=== PATIENT | male | born 1965 | race Caucasian/White ===

== ENCOUNTER → 2020-04-12 09:17 | Outpatient (CLI) | payer BC, SELFPAY ==
--- NOTE | ~2020-04-12 | XR_ITS ---
EXAMINATION: XR chest 2V 04/12/2020 09:25 INDICATION: Wheezing and cough PROCEDURE: 2 view chest COMPARISON: 04/09/2012 FINDINGS: The lungs are clear. The cardiomediastinal silhouette is within normal limits. There are no pleural effusions. There is no pneumothorax suspected. IMPRESSION: 1: NO ACUTE CARDIOPULMONARY DISEASE. Reviewed, dictated and finalized at location A. GEMENT TRAINEE
== END ==
PROVIDERS: PCP Family Medicine; Visit Provider Nurse Practitioner
DX: R06.2 Wheezing (principal)
CPT/HCPCS: 71046

== ENCOUNTER 2021-02-05 09:36 | Outpatient (CLI) | payer BC, SELFPAY ==
--- NOTE | 2021-02-05 10:16 | ECG_ITS ---
Measurements Intervals [place] Rate: 99 P: 63 OK: 146 QRS: 37 QRSD: 90 T: 57 QT: 325 QTc: 419 Interpretive Statements SINUS RHYTHM NONSPECIFIC ST & T-WAVE ABNORMALITY- INFERIOR LEADS BASELINE ARTIFACT- I, II, AVR, AVL BORDERLINE ECG Electronically Signed On 02-05-2021 10:36:30 CDT by Dejuan Velasquez D.O.
== END 2021-02-05 09:37 | disposition home or self-care (01) ==
LOC: ANHCARD 09:37
PROVIDERS: PCP Family Medicine; Visit Provider Nurse Practitioner Family
DX: R55 Syncope and collapse (principal)
CPT/HCPCS: 93005

== ENCOUNTER 2021-05-03 08:05 | Outpatient (CLI) | payer BC, SELFPAY ==
--- NOTE | 2021-05-05 13:56 | P.PCNPFT_ITS ---
PFT Procedure Performed PFT Procedure Performed Spirometry with Pre/Post Bronchodilator Plethysmography (Lung Vol) Diffusing Cap (DLCO) Flow Vol Loop PFT Interpretation DOS: 05/03/2021 REQUESTING: Dr Hernandez REASON FOR TESTING: shortness of breath PULMONARY FUNCTION TESTS Results are reliable and reproducible. Spirometry: Pre-bronchodilator FEV1 is 66%, 2.46 L, mildly decreased. FVC is 82%. The FEV1/FVC ratio is 62% consistent with airflow obstruction. There is an 11% increase in the FVC after bronchodilator administration which is greater than 200 mL. Lung volumes: Total lung capacity 119% upper limit of normal. Residual volume severely increased to a 1% consistent with air trapping. RV/TLC greatly elevated. Airway resistance 227% increased. Diffusion: DLCO 70%, mildly decreased. Flow volume loop: This is not reliably reproduced 3 times. IMPRESSION: Mild obstructive ventilatory defect with severe air trapping and mild diffusion impairment. There was a response to bronchodilator that was 11%, less than the 12% required by ATS to qualify as a statistically significant resp onse. This study is consistent with emphysema. The lack of response to bronchodilators should not preclude use of clinically indicated. Judy Hernandez MD
--- NOTE | 2021-05-05 14:06 | WPDSIXMINUTE ---
Six Minute Walk Procedure Procedure Performed Pulmonary Stress Test (6 min walk) Six Minute Walk Six Minute Walk: DOS: 05/03/2021 REQUESTING: Dr Hernandez REASON FOR TESTING: shortness of breath SIX MINUTE WALK This study was conducted per ATS guidelines. The initial saturation was 97% and the pulse was 74. The patient walked for 6 minutes without stopping, completing 1400 ft/473.7 m which is a normal distance for his age. He did not drop his saturation below 95%. The highest pulse was 100. At the end of recovery, his pulse decreased to 82 which is a normal response to exercise. IMPRESSION: This is a normal walk study. The patient does not require supplemental oxygen with exertion.
== END 2021-05-03 08:06 | disposition home or self-care (01) ==
PROVIDERS: PCP Family Medicine; Visit Provider Internal Medicine Critical Care Medicine
DX: J44.9 Chronic obstructive pulmonary disease, unspecified (principal); R94.2 Abnormal results of pulmonary function studies
CPT/HCPCS: 94060; 94618; 94726; 94729

== ENCOUNTER → 2021-06-10 12:42 | Outpatient (CLI) | payer BC, SELFPAY ==
--- NOTE | ~2021-06-10 | CT_ITS ---
EXAMINATION:CT lung screening DATE: 06/10/2021 12:58 INDICATION: Personal history of nicotine dependence. Current smoker with 40 pack year history. TECHNIQUE: Computed tomography (CT) of the chest was performed without intravenous contrast. Automate d exposure control and iterative reconstruction technique were employed. The dose-length product (DLP ) was 327.71 mGy-cm. COMPARISON: None. FINDINGS: There is mild emphysema. There is a 5 mm nodule at minor fissure. There is a 3 mm nodule in right middle lobe. No pleural effusion. The heart size is normal. No pericardial effusion. There is mild thoracic spondylosis. IMPRESSION: 1. Lung-RADS category 2: Benign appearance or behavior. Continue annual screening with noncontrast lo w-dose chest CT in 12 months. Reviewed, dictated and finalized at location A. [employer] AMP[employer] OFFICER IMPRESSION: 1. Lung-RADS category 2: Benign appearance or behavior. Continue annual screeni ng with noncontrast low-dose chest CT in 12 months.
== END ==
PROVIDERS: PCP Family Medicine; Visit Provider Internal Medicine Critical Care Medicine
DX: Z87.891 Personal history of nicotine dependence (principal)
CPT/HCPCS: 71271

== ENCOUNTER 2022-06-12 12:55 | Outpatient (CLI) | payer OTHER, SELFPAY ==
--- NOTE | ~2022-06-12 | CT_ITS ---
EXAMINATION:CT lung screening DATE: 06/12/2022 13:07 INDICATION: Tobacco use. Current smoker with 40 pack year history. TECHNIQUE: Computed tomography (CT) of the chest was performed without intravenous contrast. Automate d exposure control and iterative reconstruction technique were employed. The dose-length product (DLP ) was 427.98 mGy-cm. COMPARISON: Chest CT 06/10/2021 FINDINGS: There is mild emphysema. There is a stable 5 mm nodule at minor fissure. There is a 3 mm no dule in right middle lobe. There is a 2 mm nodule in left upper lobe. No pleural effusion. The heart size is normal. No pericardial effusion. There is mild bilateral gynecomastia. There is mild thoracic spondylosis. IMPRESSION: 1. Lung-RADS category 2: Benign appearance or behavior. Continue annual screening with noncontrast lo w-dose chest CT in 12 months. Reviewed, dictated and finalized at location A. RATION MANAGER IMPRESSION: 1. Lung-RADS category 2: Benign appearance or behavior. Continue annual screeni ng with noncontrast low-dose chest CT in 12 months.
== END 2022-06-12 12:56 | disposition home or self-care (01) ==
LOC: ANHIMG 12:55
PROVIDERS: PCP Family Medicine; Visit Provider Nurse Practitioner Family
DX: Z12.2 Encounter for screening for malignant neoplasm of respiratory organs (principal); F17.210 Nicotine dependence, cigarettes, uncomplicated
CPT/HCPCS: 71271

== ENCOUNTER 2022-08-09 12:57 | Emergency (ER) | payer OTHER, SELFPAY ==
[2022-08-09 13:04] VITALS: BP 143/94; PULSE 77; RESP 20; TEMP 36.4; O2SAT 98
--- NOTE | 2022-08-09 13:05 | ED.DENTAL ---
HPI - Dental/Oral General Chief complaint: Dental/Oral Stated complaint: TOOTHACHE/FACIAL SWELLING Source: patient and RN notes reviewed History of Present Illness HPI Narrative: 56-year-old male presents urgent care with complaints of right lower dental pain since . Patient reports he began having facial swelling within the last 24 hours. Denies any fevers, chills chest pain shortness of breath, or vomiting. Denies any trouble swallowing. Patient states he has been taking aspirin with minimal relief. Some parts of this dictation were generated by voice recognition software and may contain typographical and/or grammatical inaccuracies. Related Data Allergies Allergy/AdvReac Type Severity Reaction Status Date / Time No Known Allergies Allergy Verified 08/09/22 13:03 Review of Systems Review of Systems: Pertinent positives and pertinent negatives per HPI. [facility] Past Medical History Medical History Chronic obstructive pulmonary disease Chronic shortness of breath Essential (primary) hypertension Hypothyroid Vitamin D deficiency Surgical History Surgical History No history of previous surgery Family History Family History Father Heart disease Mother Thyroid disease Mother Family history of thyroid disease Father Family history of coronary artery disease Hypertension Social History Social History Social History: Patient is . Lives with his in [place]. Patient works for [employer]. Smoking packs per day: 1 Smoking cigarettes per day: 20.0 Years smoked: 40 Smoking pack-years: 40.00 Smoking status: Current every day smoker Tobacco type: cigarettes Second hand tobacco smoke exposure: No Alcohol intake: current Alcohol use details: social drinker Substance use: never Substance use type: does not use Lack of Transportation: No Lack of Food: Never True Current Housing: I Have Housing Concerned About Future Housing: No Difficulty Paying Gas/Electric Bills: No Difficulty Paying for Meds: No Currently Unemployed: No Education: High School Diploma/GED Living arrangements: with family Occupation/Education: occupation Gender identity (if verbalized by the patient): Male Sexual Orientation (if Verbalized by the Patient): Straight or Heterosexual Agree to blood products: Yes Comments At the time of my signature, I reviewed and agree with the nursing past medical, surgical, social, and family history. There is no relevant family history pertinent to the patient complaint. Exam Narrative: GENERAL: This is a well-nourished, well-developed patient, in no apparent distress. HEAD: normocephalic, atraumatic. EYES: Sclera clear/white. Vision is grossly intact. EARS: External ears normal, auditory canals clear and without drainage. Hearing grossly intact. NOSE: External nose normal with no obvious nasal discharge, nares without redness, no rhinorrhea. THROAT: Mucous membranes moist, posterior pharynx clear. MOUTH: tooth number 30 noted to have partial decay With adjacent gum swelling. NECK: Neck supple, non-tender without lymphadenopathy, masses or thyromegaly. CARDIOVASCULAR: Regular rate RESPIRATORY: no respiratory distress SKIN: warm, intact with no suspicious lesions or rash, good texture and turgor. NEURO: awake, alert, and oriented to person, place and time. There were no obvious focal neurologic abnormalities. Course Course Level of Care: Express Care Visit Vital Signs Vital signs: Vital Signs Temperature 97.6 F 08/09/22 13:04 Pulse Rate 77 08/09/22 13:04 Respiratory Rate 20 08/09/22 13:04 Blood Pressure 143/94 H 08/09/22 13:04 Pulse Oximetry 98 08/09/22 13:04 Oxygen Sorinive
== END 2022-08-09 13:23 | disposition home or self-care (01) ==
PROVIDERS: Emergency Provider Nurse Practitioner Family; PCP Family Medicine
DX: K04.7 Periapical abscess without sinus (principal); I10 Essential (primary) hypertension; J44.9 Chronic obstructive pulmonary disease, unspecified; E03.9 Hypothyroidism, unspecified; F17.210 Nicotine dependence, cigarettes, uncomplicated
CPT/HCPCS: 99213; G0463

== ENCOUNTER 2023-04-07 09:13 | Emergency (ER) | payer OTHER, SELFPAY ==
[2023-04-07 09:26] VITALS: BP 148/82; PULSE 65; RESP 14; TEMP 36; O2SAT 98
--- NOTE | 2023-04-07 09:30 | ED.SKABFB ---
HPI - Skin/Abscess/Foreign Bdy General Chief complaint: Skin/Abscess/Foreign Body Stated complaint: Rash on hand;Open wounds on feet Time Seen by Provider: 04/07/23 10:03 Source: patient and RN notes reviewed Mode of arrival: ambulatory Limitations: no limitations History of Present Illness HPI narrative: 57-year-old male presents with concern for rash on his left hand and open skin on his feet bilaterally. 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 He reports that he has been using Neosporin on them but they are worsened when he wears his shoes all day long. He reports he was unable to work today because of the pain of wearing the shoes with the open skin. He reports the area is itchy. He also reports he has got a right itchy rash on his left hand that he has been using calamine lotion on. MD complaint: rash Related Data Allergies Allergy/AdvReac Type Severity Reaction Status Date / Time No Known Allergies Allergy Verified 04/07/23 09:42 Review of Systems Review of Systems: CONSTITUTIONAL: Denies malaise, chills, sweats, or fever. EYES: Denies redness, or discharge. ENT: Denies rhinorrhea, congestion, swollen lips, swollen tongue CARDIOVASCULAR: Denies chest pain, palpitations, or edema. RESPIRATORY: Denies cough or dyspnea. GASTROINTESTINAL: Denies abdominal pain, nausea, vomiting SKIN: Reports rash on left hand and open skin on bilateral feet MUSCULOSKELETAL: Denies joint pain or myalgia. NEUROLOGIC: Denies headache. All systems reviewed & are unremarkable except as noted in HPI and below PMFSH Past Medical History Medical History Chronic obstructive pulmonary disease Chronic shortness of breath Essential (primary) hypertension Hypothyroid Vitamin D deficiency Surgical History Surgical History No history of previous surgery Family History Family History Father Heart disease Mother Thyroid disease Mother Family history of thyroid disease Father Family history of coronary artery disease Hypertension Social History Social History Social History: Patient is . Lives with his in [place]. Patient works for [employer]. Smoking packs per day: 1 Smoking cigarettes per day: 20.0 Years smoked: 40 Smoking pack-years: 40.00 Smoking status: Current every day smoker Tobacco type: cigarettes Second hand tobacco smoke exposure: No Alcohol intake: current Alcohol use details: social drinker Substance use: never Substance use type: does not use Lack of Transportation: No Lack of Food: Never True Current Housing: I Have Housing Concerned About Future Housing: No Difficulty Paying Gas/Electric Bills: No Difficulty Paying for Meds: No Currently Unemployed: No Education: High School Diploma/GED Living arrangements: with family Occupation/Education: occupation Gender identity (if verbalized by the patient): Male Sexual Orientation (if Verbalized by the Patient): Straight or Heterosexual Agree to blood products: Yes Comments At time of signature, agree with nursing past medical, surgical, social and family history. There is no relevant family history pertinent to the presenting complaint Exam Narrative: GENERAL: Well-appearing, well-nourished, and in no acute distress. HEAD: Normocephalic, atraumatic. EYES: PERRLA, conjunctivae clear, and EOMI. ENT: Mucous membranes moist. Oropharynx without edema, erythema or lesions. NECK: Supple. No lymphadenopathy CHEST: Clear to auscultation. No respiratory distress. HEART: Regular rate and rhythm. SKIN: Warm, dry. Excoriated skin on bilateral in her feet, beefy red tissue bed with scattered r
== END 2023-04-07 10:14 | disposition home or self-care (01) ==
PROVIDERS: Emergency Provider Nurse Practitioner; PCP Family Medicine
DX: B35.4 Tinea corporis (principal); J44.9 Chronic obstructive pulmonary disease, unspecified; I10 Essential (primary) hypertension; E03.9 Hypothyroidism, unspecified; F17.210 Nicotine dependence, cigarettes, uncomplicated
CPT/HCPCS: 99213; G0463

== ENCOUNTER 2023-04-13 12:34 | Outpatient (CLI) | payer OTHER, SELFPAY ==
[2023-04-13 20:23] LABS: Alanine Aminotransferase 36 U/L (6-50); Alkaline Phosphatase 129 U/L (38-126); Anion Gap 10 mmol/L (8-16); Aspartate Amino Transferase 41 U/L (17-59); Bilirubin,Total 0.5 mg/dL (0.2-1.3); Blood Urea Nitrogen 23 mg/dL (9-20); Calcium 9.1 mg/dL (8.4-10.2); Carbon Dioxide 25 mmol/L (22-30); Chloride 98 mmol/L (98-107); Estimated Glomerular Filt Rate > 60; Glucose 89 mg/dL (65-110); Potassium 4.3 mmol/L (3.4-5.0); Sodium 133 mmol/L (137-145)
== END 2023-04-13 12:35 | disposition home or self-care (01) ==
LOC: ANHGOSHLAB 12:35
PROVIDERS: PCP Family Medicine; Visit Provider Nurse Practitioner Family
DX: E78.5 Hyperlipidemia, unspecified (principal); B49 Unspecified mycosis; I10 Essential (primary) hypertension
CPT/HCPCS: 36415; 80053

== ENCOUNTER 2023-06-18 10:08 | Outpatient (CLI) | payer OTHER, SELFPAY ==
--- NOTE | ~2023-06-18 | CT_ITS ---
CT Scan of the Chest without Contrast: Clinical Indication: Lung cancer screening, personal history of nicotine dependence Technique: Contiguous sections were acquired throughout the chest without intravenous contrast. Dose reduction technique was used on this scan by utilizing automated exposure control and iterative recon struction technique. The dose-length product (DLP) was 443.92 mGy-cm. COMPARISON: 06/12/2022 Findings: There is no evidence of any significant mediastinal, hilar or axillary lymphadenopathy. The mediastin al soft tissues appear normal. There is no evidence of pleural or pericardial effusion. The lungs are clear. No pulmonary nodules or infiltrates are noted. Minimal paraseptal emphysema note d in the upper lobes. Images through the upper abdomen reveal no abnormalities. Impression: Lung RADS 1: Negative. 12 month follow-up screening CT advised. Reviewed, dictated and finalized at [facility]. Impression: Lung RADS 1: Negative. 12 month follow-up screening CT advised.
== END 2023-06-18 10:09 | disposition home or self-care (01) ==
PROVIDERS: PCP Family Medicine; Visit Provider Nurse Practitioner Family
DX: Z12.2 Encounter for screening for malignant neoplasm of respiratory organs (principal); Z87.891 Personal history of nicotine dependence
CPT/HCPCS: 71271

== ENCOUNTER 2023-10-28 16:11 | Inpatient (IN) | payer OTHER, SELFPAY ==
[2023-10-28] VITALS (16 sets, daily range): BP systolic 140–182; BP diastolic 82–106; PULSE 70–92; RESP 16–27; TEMP 36.1–36.8; O2SAT 94–100
--- NOTE | ~2023-10-28 | US_ITS ---
US renal BI 10/30/2023 10:51 Procedure: Realtime transabdominal ultrasound of the kidneys and bladder. Indication: Elevated creatinine Comparison: No prior studies for comparison. Findings: Renal echotexture is normal bilaterally without hydronephrosis, contour deforming mass or r enal calculus. The right kidney measures 11 cm and left kidney measures 11.8 cm. Bladder within norm al limits. Impression: 1: Unremarkable renal ultrasound. No stones, masses or hydronephrosis. Reviewed, dictated and finalized at location B. Impression: 1: Unremarkable renal ultrasound. No stones, masses or hydronephrosis.
--- NOTE | ~2023-10-28 | XR_ITS ---
EXAMINATION: XR abdomen/kub 1V DATE: 11/03/2023 08:38 INDICATION: Adynamic ileus. TECHNIQUE: A supine view of the abdomen on 2 radiographs was obtained. COMPARISON: CT abdomen and pelvis 10/29/2023 FINDINGS: There is dilated small bowel in the abdomen. The colon is decompressed. Skin jim are no junior. A surgical drain overlies the abdomen. The nasogastric tube tip is in the stomach. IMPRESSION: 1. Dilated small bowel, consistent with adynamic ileus. Reviewed, dictated and finalized at location A.
--- NOTE | ~2023-10-28 | XR_ITS ---
EXAM: XR abdomen gastric tube insert DATE: 10/28/2023 23:30 HISTORY: NGT placement . COMPARISON: CT abdomen pelvis, same date. FINDINGS: Clear lung bases. NG tube, tip and side port project over the stomach. Midline surgical st aples. Surgical drain over the lower abdomen. Normal bowel gas pattern. No organomegaly. No abnormal abdominal calcification. Regional bones and soft tissues normal for age. IMPRESSION: NG tube, in good position. Reviewed, dictated and finalized at location K. IMPRESSION: NG tube, in good position.
--- NOTE | ~2023-10-28 | XR_ITS ---
XR abdomen gastric tube rechec INDICATION: Evaluate NG tube position. TECHNIQUE: Limited KUB perform for evaluating NG tube . COMPARISON: FINDINGS: NG tube tip in the stomach. Visualized bowel gas pattern is nonspecific.Mildly dilated sma ll bowel loops are present left upper abdomen which may represent ileus or small bowel obstruction. IMPRESSION: 1: NG tube tip in the stomach. Reviewed, dictated and finalized at location B.
--- NOTE | ~2023-10-28 | XR_ITS ---
XR chest 1V portable Ordering provider: Janna Samano APRN History: 58 years Male with . SOB . Comparison: April 12, 2020 FINDINGS: MEDIASTINUM: The cardiac silhouette is not enlarged. Is projected over the trachea may be endotracheal tube clinical correlation advised. LUNGS: No infiltrates, effusions or pneumothorax. Slightly prominent markings more on the right side with interstitial thickening. OTHER: No free air under the diaphragm. IMPRESSION: Prominent markings more on the right side with interstitial thickening. Early pneumonia is not exclud ed. Follow-up advised. Reviewed, dictated and finalized at location A. IMPRESSION: Prominent markings more on the right side with interstitial thickening. Early p neumonia is not excluded. Follow-up advised.
--- NOTE | ~2023-10-28 | CT_ITS ---
EXAMINATION: CT abdomen pelvis w con DATE: 10/29/2023 15:55 INDICATION: Status post hernia repair. Lactic acidosis. TECHNIQUE: Computed tomography (CT) of the abdomen and pelvis was performed with 100 cc Omnipaque 350 intravenous contrast. The dose-length product was 1469.70 mGy-cm. Automated exposure control and ite rative reconstruction technique were employed. COMPARISON: CT dated 10/28/2023. FINDINGS: Status post hernia repair. There is a drainage catheter in the subcutaneous tissues anterio r to the abdomen. There is soft tissue gas and fluid in the anterior abdominal wall, consistent with recent surgery. There is no free fluid in the mesentery and peritoneal space extending into the pelvi s, consistent with recent surgery. There is fatty infiltration of the liver. The spleen, pancreas, ad renal glands and kidneys are unremarkable. There is vicarious excretion of contrast. There is distend ed fluid-filled small bowel throughout the abdomen with air-fluid levels, likely ileus. No acute osse ous abnormality. Bladder wall is thickened, although the bladder is not well distended.. IMPRESSION: 1. Postoperative changes consistent with recent hernia repair. There is a dynamic ileus involving the small bowel with moderate free fluid in the abdomen and pelvis, likely postoperative. 2: Bladder wall thickening which may be due to cystitis. Recommend clinical correlation. Reviewed, dictated and finalized at location B. IMPRESSION: 1. Postoperative changes consistent with recent hernia repair. There is a dynam ic ileus involving the small bowel with moderate free fluid in the abdomen and pelvis, likely postoperative. 2: Bladder wall thickening which may be due to cystitis. Recommend clinical cor relation.
--- NOTE | ~2023-10-28 | CT_ITS ---
EXAMINATION: CT abdomen pelvis w con DATE: 10/28/2023 17:03 INDICATION: hernia TECHNIQUE: Computed tomography (CT) of the abdomen and pelvis was performed with 100 mL Omnipaque-350 intravenous contrast. Automated exposure control and iterative reconstruction technique were employe d. The dose-length product was 1478.09 mGy-cm. COMPARISON: None. FINDINGS: Lower thorax: Unremarkable Liver: Normal. Biliary/Gallbladder: Gallbladder is normal. No bile duct dilation. Pancreas: No mass or duct dilation. Spleen: Normal. Adrenals:No mass. Kidneys: No suspicious mass, obstructing stone, or hydronephrosis simple left midpole cyst. GI tract: No small or large bowel dilation. Normal appendix. Diverticulosis without diverticulitis. Mesentery/Peritoneum: No ascites, mass, or free air. Retroperitoneum: No mass. Atherosclerotic abdominal aortic and/or arterial calcifications. Pelvis: Partially distended urinary bladder with wall thickening. Prostatic calcifications.. Soft Tissues: Large supraumbilical ventral hernia, 5.7 cm neck, multiple loops of nondilated small nayely wel, with mesenteric stranding. Bones: No acute osseous finding. IMPRESSION: Large wide necked supraumbilical ventral hernia containing multiple loops of nonobstructed small zeus l. Mesenteric stranding within the hernia sac likely indicates some component of inflammation or veno us congestion. Cystitis versus urinary bladder wall thickening from outlet compromise. Correlate with urinalysis. Reviewed, dictated and finalized at location K. IMPRESSION: Large wide necked supraumbilical ventral hernia containing multiple loops of no nobstructed small bowel. Mesenteric stranding within the hernia sac likely stanley cates some component of inflammation or venous congestion. Cystitis versus urinary bladder wall thickening from outlet compromise. Correla te with urinalysis.
--- NOTE | 2023-10-28 16:29 | PC.NURSE ---
patient is very restless and continuously stating, please, it hurts, give me something for pain . patient is stating this continuously even after 4mg morphine and 200mcg of fentanyl prior to arrival. last meal at 1200 today and has been drinking water all day .
[2023-10-28 16:31] LABS: Basophils Absolute Auto 0.1 K/mm3 (0.0-0.1); Basophils Percent Auto 0.6 % (0.2-1.2); Eosinophils Absolute Auto 0.3 K/mm3 (0-0.3); Eosinophils Percent Auto 2.5 % (0-4.4); Hematocrit 45.6 % (42.0-52.0); Immature Granulocyte Absolute 0.13 K/mm3 (0.00-0.031); Immature Granulocyte Percent A 1.2 % (0-0.5); Lymphocytes Absolute Auto 2.11 K/mm3 (0.9-3.2); Lymphocytes Percent Auto 19.2 % (18.3-44.2); Mean Corpuscular HGB Conc 35.1 g/dl (32-36); Mean Corpuscular Volume 96.8 fl (80-100); Mean Platelet Volume 8.7 fl (7.4-10.4); Monocytes Absolute Auto 1.1 K/mm3 (0.1-0.6); Neutrophils Absolute Auto 7.3 K/mm3 (1.3-6.7); Neutrophils Percent Auto 66.5 % (45.5-73.1); Platelet Count Result 235 k/mm3 (150-375); Red Blood Count 4.71 M/mm3 (4.6-6.20); Red Cell Distribution Width 13.1 % (11.5-14.5)
[2023-10-28] MEDS: fentaNYL CITRATE INJ (*CRX) 100 MCG/2 ML VIAL 150 MCG IV PUSH (16:34)
[2023-10-28] MEDS: HALOPERIDOL LACTATE 5 MG/ML VIAL 2.5 MG IV PUSH (16:37)
[2023-10-28 16:42] LABS: Alanine Aminotransferase 82 U/L (6-50); Albumin Level 4.7 g/dL (3.5-5.1); Alkaline Phosphatase 109 U/L (38-126); Anion Gap 16 mmol/L (4-12); Aspartate Amino Transferase 82 U/L (17-59); Bilirubin,Total 0.4 mg/dL (0.2-1.3); Blood Urea Nitrogen 16 mg/dL (9-20); Calcium 9.7 mg/dL (8.4-10.2); Carbon Dioxide 23 mmol/L (22-30); Chloride 96 mmol/L (98-107); Estimated CRCL calculation 83 ml/min; Estimated Glomerular Filt Rate > 60; Glucose 128 mg/dL (65-110); Lipase 110 U/L (23-300); Potassium 3.6 mmol/L (3.4-5.0); Sodium 135 mmol/L (137-145)
--- NOTE | 2023-10-28 16:47 | PC.NURSE ---
provider states the haldol order is to ease patients anxiety and not for chemical restraint. after fentanyl administration patients pain is still 10/10 and is continuously moaning in pain
[2023-10-28] MEDS: fentaNYL CITRATE INJ (*CRX) 100 MCG/2 ML VIAL IV PUSH (17:14)
--- NOTE | 2023-10-28 18:00 | ED.ABDPAIN ---
HPI - Abdominal Pain General Chief Complaint: Abdominal Pain Stated Complaint: severe abd pain Time Seen by Provider: 10/28/23 16:22 History of Present Illness HPI narrative: This is a 58-year-old male gentleman who presents to the emergency department with chief complaint of sudden onset abdominal pain. He has a known history of a large ventral hernia that he has had previously able to be successfully reduced. He states approximately 2:00 p.m. this afternoon he was sitting in his couch when he had the sudden onset of significant abdominal discomfort. He is developing some nausea without vomiting and his pain has been getting worse since the onset. He called EMS for assistance. EMS was providing him analgesia with 150 of fentanyl, 4 mg of IV morphine. Patient had significant pain without any improvement after these interventions. On my initial assessment the patient patient is writhing around screaming, complaining of abdominal pain and nausea. He states that this has never happened in the past he has never had any abdominal surgeries. Denies any chest pain, shortness a brother, headache, vision changes, diarrhea, constipation, urinary complaints, no fever, chills. Was otherwise in his normal state of health until the segment. No trauma. Related Data Allergies Allergy/AdvReac Type Severity Reaction Status Date / Time terbinafine Allergy Mild Hives Verified 10/28/23 16:17 Review of Systems Review of Systems: As reviewed above in the HPI [facility] Past Medical History Medical History Abnormal EKG Chronic obstructive pulmonary disease Chronic shortness of breath Essential (primary) hypertension Hypothyroid Milia of eyelid Syncopal episodes Tinea pedis Vitamin D deficiency Surgical History Surgical History No history of previous surgery Family History Family History Father Heart disease Mother Thyroid disease Mother Family history of thyroid disease Father Family history of coronary artery disease Hypertension Social History Social History Social History: Patient is . Lives with his in [place]. Patient works for [employer]. Smoking packs per day: 1 Smoking cigarettes per day: 20.0 Years smoked: 40 Smoking pack-years: 40.00 Smoking status: Current every day smoker Tobacco type: cigarettes Second hand tobacco smoke exposure: No Alcohol intake: current Alcohol use details: social drinker Substance use: never Substance use type: does not use Lack of Transportation: No Lack of Food: Never True Current Housing: I Have Housing Concerned About Future Housing: No Difficulty Paying Gas/Electric Bills: No Difficulty Paying for Meds: No Currently Unemployed: No Education: High School Diploma/GED Living arrangements: with family Occupation/Education: occupation Gender identity (if verbalized by the patient): Male Sexual Orientation (if Verbalized by the Patient): Straight or Heterosexual Agree to blood products: Yes Exam Narrative: GENERAL: Patient appears in acute distress with mild diaphoresis. He is awake alert and oriented but complaining of significant abdominal discomfort. HEAD: [Normocephalic, atraumatic.] EYES: [PERRLA and EOMI.] ENT: Nares clear, no rhinorrhea or epistaxis. Mucous membranes moist. NECK: Supple. CHEST: [Clear to auscultation. No respiratory distress.] HEART: [Regular rate and rhythm]. No murmur heard. [Normal peripheral pulses.] ABDOMEN: Hard, distended, significant tender to palpation. Ventral hernia noted that is irreducible. Overlying skin changes consistent with potential strangulation noted, no inguinal pathology or inguinal tenderness, scrotal tenderness., rigidity noted. EXTREMITI
[2023-10-28 18:21] LABS: Appearance Urine Clear (Clear); Bacteria Urine None Seen /hpf; Bilirubin Urine Negative (Negative); Blood Urine Negative (Negative); Color Urine Dark Yellow (Yellow); Glucose Urine UA Negative (Negative); Hyaline Casts Urine Present /lpf; Ketones Urine Trace mg/dL (Negative); Leukocyte Esterase Ur Negative LEU/UL (Negative); Nitrate Urine Negative (Negative); Non Pathogenic Casts >20; Protein Urine Trace mg/dL (Negative); RBC Urine 0-2 /hpf (0-2); Specific Grav Ur > 1.045 (1.001-1.035); Squamous Epithelial Cell Urine None Seen /hpf (Few); WBC Urine 0-5 /hpf (0-3); pH Urine 5.5 (5.0-9.0)
[2023-10-28 18:22] LABS: Add Urine Microscopic? YES
[2023-10-28] MEDS: LACTATED RINGERS 1,000 ML 125 ML IV CONT (18:38)
[2023-10-28] MEDS: HYDROmorphone HCL INJ (*CRX) 1 MG/ML SYR IM (19:06)
[2023-10-28] MEDS: LACTATED RINGERS 1,000 ML 999 ML IV CONT (19:15)
[2023-10-28] MEDS: PIPERACILLIN/TAZ 4.5G/NS 100ML 4.5 GM/100 ML BAG IVPB (19:27)
[2023-10-28 19:36] LABS: Lactic Acid Reflex 2.7 mmol/L (0.7-2.0)
[2023-10-28] MEDS: KETOROLAC 30 MG/ML VIAL (*BKC) IV PUSH (20:04)
[2023-10-28] MEDS: methocarbamoL 500 MG TABLET 1500 MG PO (20:05)
[2023-10-28 20:33] LABS: Reflex Lactic Acid Yes or No Add Lactic
--- NOTE | 2023-10-28 20:38 | WPDCN ---
Assessment and Plan Assessment and plan (1) Incarcerated ventral hernia: Code(s): K43.6 - Other and unspecified ventral hernia with obstruction, without gangrene Status: Acute Assessment and Plan: Patient has a incarcerated ventral hernia containing multiple loops of small bowel. Does not appear to have a bowel obstruction on CT scan however. White blood count 11708. Will proceed with emergent reduction of the incarcerated small bowel and primary repair of the ventral hernia without mesh, and possible bowel resection this evening. Risks, benefits, indications,and expected outcomes were discussed in detail with the patient and his family at the bedside. Risks such as need for bowel resection of any nonviable small bowel as well as possible admission to the intensive care unit overnight on the ventilator due to his COPD was specifically discussed. They understand then wish to proceed with surgery emergently this evening. We will start the patient on IV antibiotics to include some Zosyn. HPI Data of Consult Date/Time: 10/28/23 20:38 Requesting Physician: Harsh Flores MD Primary Care Provider: Juana Kurtz MD Consult Narrative Reason for consult: Incarcerated primary ventral hernia, abdominal pain. Narrative: Patrick House is a 58 year old obese male who has had a long multiple year history of having a reducible primary lower epigastric ventral hernia. He had always been able to reduce this hernia until earlier this afternoon. At that time he said sudden onset of pretty severe abdominal pain and had a hard knot is mid abdomen which she could not reduce. He has some mild nausea but no emesis. He presented to the emergency room and he had a known white blood count 33857. He had no emesis. He had a CT scan abdomen pelvis performed showing multiple loops of small bowel incarcerated within a primary ventral hernia defect measuring approximately 6cm in diameter. None of the bowel appeared to be obstructed or ischemic on CT scan. Patient is having severe pain on the minimal nausea. He does have COPD and uses a daily inhaler. He has never had abdominal surgery in the past. Other medical conditions include hypertension and hypothyroidism. Review of Systems Review of Systems: The remainder of the review of systems to include constitutional, HEENT, cardiovascular, respiratory, GI, , integumentary, musculoskeletal, endocrine, immunologic, hematologic, psychiatric, and neurologic are all negative except for which is mentioned above in the HPI. [facility] Past Medical History Medical History Abnormal EKG Chronic obstructive pulmonary disease Chronic shortness of breath Essential (primary) hypertension Hypothyroid Milia of eyelid Syncopal episodes Tinea pedis Vitamin D deficiency Surgical History Surgical History No history of previous surgery Family History Family History Father Heart disease Mother Thyroid disease Mother Family history of thyroid disease Father Family history of coronary artery disease Hypertension Social History Social History Social History: Patient is . Lives with his in [place]. Patient works for [employer]. Smoking packs per day: 1 Smoking cigarettes per day: 20.0 Years smoked: 40 Smoking pack-years: 40.00 Smoking status: Current every day smoker Tobacco type: cigarettes Second hand tobacco smoke exposure: No Alcohol intake: current Alcohol use details: social drinker Substance use: never Substance use type: does not use Lack of Transportation: No Lack of Food: Never True Current Housing: I Have Housing Concerned About Future Housing: No Difficulty Paying Gas/Electric Bills: No Difficulty Payi
--- NOTE | 2023-10-28 20:58 | WPDANESEPP ---
Anes - Eval Pre Procedure Procedure: Operation Date: 10/28/23 21:00 Proposed Procedures p Ventral Incisional Hernia Repair - Harsh Flores MD Date/Time: 10/28/23 20:58 Pre Op Diagnosis: severe abd pain Patient Data Age: 58 Gender: M Height: 1.78 m Weight: 118.18 kg Last Vital Signs Temp 36.8 C 10/28/23 19:06 Pulse 82 10/28/23 20:16 Resp 25 H 10/28/23 20:16 BP 171/102 H 10/28/23 20:16 Pulse Ox 98 10/28/23 20:16 O2 Del Method Room Air 10/28/23 16:12 Allergies Allergy/AdvReac Type Severity Reaction Status Date / Time terbinafine Allergy Mild Hives Verified 10/28/23 16:17 Home Medications Medication Instructions Recorded Confirmed Type cholecalciferol (vitamin D3) 50 50 mcg PO DAILY #1 cap 07/22/21 09/24/23 Rx mcg (2,000 unit) capsule triamcinolone acetonide 0.1 % 1 applic topical BID #15 grams 08/12/22 09/24/23 Rx topical cream pravastatin 10 mg tablet 10 mg PO QHS #90 tabs 05/22/23 09/24/23 Rx fluticasone fur. 100 mcg-umeclid See Rx Instructions .Route 07/15/23 09/24/23 Rx 62.5 mcg-vilant 25 mcg .COMPLEX #180 ea inhalat.powder (Trelegy Ellipta) clotrimazole-betamethasone 1 1 applic topical BID 4 weeks #45 09/21/23 09/24/23 Rx %-0.05 % topical cream grams lisinopril 20 2 tablet PO DAILY #180 tabs 10/06/23 Rx mg-hydrochlorothiazide 12.5 mg tablet albuterol sulfate 90 mcg/actuation 2 inh inhalation Q4H PRN shortness 10/07/23 Rx aerosol inhaler (Ventolin HFA) of breath or wheezing #8.5 grams levothyroxine 100 mcg tablet 100 mcg PO DAILY #90 tabs 10/12/23 Rx Laboratory Tests 10/28/23 10/28/23 10/28/23 16:23 17:27 19:17 WBC 11.0 H K/mm3 (4.5-10.0) RBC 4.71 M/mm3 (4.6-6.20) Hgb 16.0 g/dL (14.0-18.0) Hct 45.6 % (42.0-52.0) MCV 96.8 fl (80-100) MCH 34.0 pg (26-34) MCHC 35.1 g/dl (32-36) RDW 13.1 % (11.5-14.5) Plt Count 235 k/mm3 (150-375) MPV 8.7 fl (7.4-10.4) Immature Gran % (Auto) 1.2 H % (0-0.5) Neut % (Auto) 66.5 % (45.5-73.1) Lymph % (Auto) 19.2 % (18.3-44.2) [place] % (Auto) 10.0 H % (2.6-8.5) Eos % (Auto) 2.5 % (0-4.4) Baso % (Auto) 0.6 % (0.2-1.2) Lymph # (Auto) 2.11 K/mm3 (0.9-3.2) [place] # (Auto) 1.1 H K/mm3 (0.1-0.6) Eos # (Auto) 0.3 K/mm3 (0-0.3) Baso # (Auto) 0.1 K/mm3 (0.0-0.1) Abs Immat Gran (auto) 0.13 H K/mm3 (0.00-0.031) Absolute Neuts (auto) 7.3 H K/mm3 (1.3-6.7) Absolute Nucleated RBC 0.000 K/mm3 (0.0-0.012) Nucleated RBC % 0.0 % (0.0-0.2) Sodium 135 L mmol/L (137-145) Potassium 3.6 mmol/L (3.4-5.0) Chloride 96 L mmol/L (98-107) Carbon Dioxide 23 mmol/L (22-30) Anion Gap 16 H mmol/L (4-12) BUN 16 mg/dL (9-20) Creatinine 1.10 mg/dL (0.7-1.3) Estim Creat Clear Calc 83 ml/min Estimated GFR > 60 (59 - ) Glucose 128 H mg/dL (65-110) Lactic Acid 3.0 H mmol/L 2.7 H mmol/L (0.7-2.0) (0.7-2.0) Calcium 9.7 mg/dL (8.4-10.2) Total Bilirubin 0.4 mg/dL (0.2-1.3) AST 82 H U/L (17-59) ALT 82 H U/L (6-50) Alkaline Phosphatase 109 U/L (38-126) Total Protein 8.0 g/dL (6.3-8.2) Albumin 4.7 g/dL (3.5-5.1) Lipase 110 U/L (23-300) Urine Color Dark yellow (Yellow) Urine Appearance Clear (Clear) Urine pH 5.5 (5.0-9.0) Ur Specific [place] > 1.045 H (1.001-1.035) Urine Protein Trace mg/dL (Negative) Urine Glucose (UA) Negative mg/dL (Negative) Urine Ketones Trace H mg/dL (Negative) Ur Blood (Man) Negative (Negative) Urine Nitrate Negative (Negative)
--- NOTE | 2023-10-28 21:14 | ECG_ITS ---
Test Date: 2023-10-28 21:14:43 Measurements Intervals [place] Rate: 78 P: 49 [place]: 150 QRS: 13 QRSD: 90 T: 54 QT: 318 QTc: 362 Interpretive Statements SINUS RHYTHM NONSPECIFIC T-WAVE ABNORMALITY- INF/LAT LEADS BASELINE ARTIFACT- I, II, III, AVR, AVL, AVF, V4 BORDERLINE ECG No previous ECG available for comparison Electronically Signed On 10-29-2023 07:50:18 CDT by Dejuan Velasquez D.O.
[2023-10-28] MEDS: LIDO 1%/EPINEPHRINE 1:100,000 20 ML VIAL 30 ML INFILTRATE (23:00)
[2023-10-28] MEDS: BUPivacaine HCL 0.5% PF 30 ML VIAL INFILTRATE (23:00)
[2023-10-28] MEDS: LACTATED RINGERS 1,000 ML 30 ML IV CONT (23:14)
--- NOTE | 2023-10-28 23:28 | W.PM.PROC2 ---
Procedure Note - Detailed Date of Procedure 10/28/23 Pre-op Diagnosis Incarcerated primary ventral hernia. Post-op Diagnosis Same Procedure Performed Open incarcerated ventral hernia repair without mesh. (defect = 7 cm) Surgeon Harsh Flores MD Mapping Supervisor Dipika ANDERSON Anesthesia General Indications Patient is a 58-year-old gentleman who has had a longstanding primary ventral hernia which he states it always been reducible. This afternoon he noticed it was not reducible and started become very painful. He presented to the emergency room and was found to have a non reducible incarcerated primary ventral hernia. CT scan showed multiple loops of small bowel which did not appear to be obstructed and without obvious ischemia the bowel wall on CT scan. He presents now for emergent repair of the incarcerated ventral hernia. Findings Patient had a large amount of the mid jejunum small bowel incarcerated within the hernia sac. There was moderately severe venous congestion of the bowel without raman necrosis. There was some mild ischemic changes but all the bowel was viable. Once the hernia sac was opened and the constriction released the vascular congestion of the bowel and mesentery improved. The bowel started to pink up and it all appeared viable. Upon entering the hernia sac a small enterotomy was made in in 1 loop of the small bowel. This was quickly repaired by placement of 3 3-0 silk sutures placed in Lembert fashion. No other enterotomies or perforations were noted. The abdominal wall hernia defect was 7cm in diameter. Description of Procedure After informed consent was obtained patient brought to the operating room was placed supine position and general endotracheal anesthesia was administered. A [place] catheter was placed decompress the bladder. A nasogastric tube was placed decompress the stomach. A time-out was then performed correctly identifying the patient as well as procedure to be performed. He was given Zosyn for IV antibiotics in the emergency room and preoperatively. I then made a midline incision over the hernia sac extending from the upper epigastric region down to the umbilicus. Dissection was carried down through the dermis of the skin with a scalpel and then down through the subcutaneous tissues with electrocautery until I encountered the hernia sac. I then dissected the hernia sac free from the surrounding subcutaneous tissues with blunt finger electrocautery dissection. I dissected all the way down to the neck of the hernia sac at the fascial level. I then delivered the hernia sac and its contents above the skin level and then opened the hernia sac. There was prompt drainage of fluid but there was no smell of necrotic bowel. During entry into the hernia sac a very small enterotomy was made in loop of small bowel. There was some spillage of small bowel contents but this was controlled quickly and aspirated. I then closed this enterotomy with placement of 3 separate 3-0 silk sutures placed in Lembert fashion. The hernia sac was multilobulated with many fibrous bridges. There was adhesions of the small bowel to the fibrous bridge is some causing partial small-bowel obstruction. I was able to free all the small bowel and the omentum from the hernia sac. Once this was done and I opened the hernia defect about 1cm cephalad the constriction on the bowel and the mesentery to the bowel released and the venous congestion of the bowel wall and mesentery started to resolve. The small bowel appeared viable however upon entry into the hernia sac some of the small bowel appeared to be mildly ischemic but that improved with release of the constriction at the fascial level. I then reduced all the small bowel back into the abdomen through the defect. I then resected the hernia sac at the fascial level utilized electrocautery this was sent to pathology for examination. I then eviscerated the small bowel that was involved within the h
[2023-10-28] MEDS: fentaNYL CITRATE INJ (*CRX) 100 MCG/2 ML VIAL 25 MCG IV PUSH ×2 (23:50→23:55)
[2023-10-29] VITALS (29 sets, daily range): BP systolic 102–147; BP diastolic 56–99; PULSE 98–130; RESP 13–20; TEMP 36.1–37.6; O2SAT 92–98
[2023-10-29] MEDS: LACTATED RINGERS 1,000 ML 30 ML IV CONT
[2023-10-29] MEDS: fentaNYL CITRATE INJ (*CRX) 100 MCG/2 ML VIAL 25 MCG IV PUSH ×3 (00:05→00:10)
[2023-10-29] MEDS: IPRATROPIUM 0.5 MG/ALBUTEROL SULFATE 2.5 MG AMPUL.NEB 3 ML INHALATION ×4 (00:15→13:33)
--- NOTE | 2023-10-29 01:10 | ADMGEN ---
This patient, Patrick House, was admitted to Medical Room 249-01. Patient/family oriented to hospital policies and general routines including ID bracelet, bed and alarms, visiting hours, pain management, procedures, bathroom and other care routines, personal items, smoking policy, room service/diet, and visiting hours. Information on how to activate the Rapid Response Team has been discussed. Patient/Family are encouraged to report perceived risks to care and to ask questions if they do not understand what they are told or what they should do.
--- NOTE | 2023-10-29 01:21 | SUR.PHASEI ---
FENTANYL 25MCG IVP GIVEN IN PACU @ 10/29/23 @ 0040; TOTAL 150MCG IVP GIVEN IN PACU. UNABLE TO DOCUMENT THIS DOSE ON JUN R/T ORDER DISCONTINUED IN EMAR
[2023-10-29] MEDS: HYDROmorphone HCL INJ (*CRX) 1 MG/ML SYR IV PUSH ×6 (01:50→23:43)
[2023-10-29] MEDS: diazePAM INJ (*CRX) 10 MG/2 ML SYRINGE 5 MG IV PUSH ×3 (01:51→23:44)
[2023-10-29] MEDS: MAG HYDROX/AL HYDROX/SIMETH 30 ML UDC PO ×3 (01:52→18:08)
[2023-10-29] MEDS: PIPERACILLN/TAZ 3.375GM/NS50ML 3.375 GM/50 ML BAG IVPB ×4 (01:59→21:41)
[2023-10-29] MEDS: IBUPROFEN IV 800 MG/200 ML 800 MG/200 ML BAG 400 MG IVPB ×3 (02:00→18:08)
[2023-10-29] MEDS: DEXTROSE 5%/LACTATED RINGERS 1,000 ML 130 ML IV CONT (02:26)
[2023-10-29 03:25] LABS: Basophils Percent Auto 0.3 % (0.2-1.2); Hematocrit 45.4 % (42.0-52.0); Hemoglobin 15.4 g/dL (14.0-18.0); Immature Granulocyte Absolute 0.11 K/mm3 (0.00-0.031); Immature Granulocyte Percent A 0.7 % (0-0.5); Lymphocytes Absolute Auto 1.13 K/mm3 (0.9-3.2); Lymphocytes Percent Auto 7.4 % (18.3-44.2); Mean Corpuscular HGB Conc 33.9 g/dl (32-36); Mean Corpuscular Hemoglobin 33.7 pg (26-34); Mean Corpuscular Volume 99.3 fl (80-100); Mean Platelet Volume 8.9 fl (7.4-10.4); Monocytes Absolute Auto 0.9 K/mm3 (0.1-0.6); Neutrophils Absolute Auto 13.1 K/mm3 (1.3-6.7); Neutrophils Percent Auto 85.6 % (45.5-73.1); Platelet Count Result 229 k/mm3 (150-375); Red Blood Count 4.57 M/mm3 (4.6-6.20); Red Cell Distribution Width 13.3 % (11.5-14.5); White Blood Count 15.3 K/mm3 (4.5-10.0)
[2023-10-29 03:54] LABS: Lactic Acid 2.9 mmol/L (0.7-2.0)
[2023-10-29 03:55] LABS: Alanine Aminotransferase 62 U/L (6-50); Albumin Level 3.9 g/dL (3.5-5.1); Alkaline Phosphatase 66 U/L (38-126); Anion Gap 12 mmol/L (4-12); Aspartate Amino Transferase 65 U/L (17-59); Bilirubin,Total 0.7 mg/dL (0.2-1.3); Blood Urea Nitrogen 20 mg/dL (9-20); Calcium 8.5 mg/dL (8.4-10.2); Carbon Dioxide 20 mmol/L (22-30); Chloride 101 mmol/L (98-107); Estimated CRCL calculation 71 ml/min; Estimated Glomerular Filt Rate 57; Glucose 164 mg/dL (65-110); Potassium 4.8 mmol/L (3.4-5.0); Sodium 133 mmol/L (137-145)
--- NOTE | 2023-10-29 09:36 | WPDANESPN ---
Anes - Prog Note Post-Op Date/Time: 10/29/23 09:36 Cardiovascular status: normal Respiratory status: normal Airway patency: baseline Mental status: baseline Post-Op hydration status: normal Vital Signs: Last Vital Signs Temp 37.1 C 10/29/23 02:59 Pulse 121 H 10/29/23 08:00 Resp 20 10/29/23 07:34 BP 111/61 10/29/23 02:59 Pulse Ox 94 10/29/23 07:24 O2 Del Method Room Air 10/29/23 07:24 O2 Flow Rate 2 10/29/23 02:42 FiO2 21 10/29/23 07:24 Pain Score (VAS): 0 I/O: Intake & Output 10/28/23 10/29/23 10/29/23 23:59 07:59 15:59 Intake Total 1100 850 Output Total 10 710 Balance 1090 140 Laboratory Tests 10/29/23 03:20 10/29/23 03:20 10/28/23 10/28/23 10/28/23 16:23 17:27 19:17 WBC 11.0 H RBC 4.71 Hgb 16.0 Hct 45.6 MCV 96.8 MCH 34.0 MCHC 35.1 RDW 13.1 Plt Count 235 MPV 8.7 Immature Gran % (Auto) 1.2 H Neut % (Auto) 66.5 Lymph % (Auto) 19.2 [place] % (Auto) 10.0 H Eos % (Auto) 2.5 Baso % (Auto) 0.6 Lymph # (Auto) 2.11 [place] # (Auto) 1.1 H Eos # (Auto) 0.3 Baso # (Auto) 0.1 Abs Immat Gran (auto) 0.13 H Absolute Neuts (auto) 7.3 H Absolute Nucleated RBC 0.000 Nucleated RBC % 0.0 Sodium 135 L Potassium 3.6 Chloride 96 L Carbon Dioxide 23 Anion Gap 16 H BUN 16 Creatinine 1.10 Estim Creat Clear Calc 83 Estimated GFR > 60 Glucose 128 H Lactic Acid 3.0 H 2.7 H Calcium 9.7 Total Bilirubin 0.4 AST 82 H ALT 82 H Alkaline Phosphatase 109 Total Protein 8.0 Albumin 4.7 Lipase 110 Urine Color Dark yellow Urine Appearance Clear Urine pH 5.5 Ur Specific [place] > 1.045 H Urine Protein Trace Urine Glucose (UA) Negative Urine Ketones Trace H Ur Blood (Man) Negative Urine Nitrate Negative Urine Bilirubin Negative Urine Urobilinogen 1.0 Leukocyte Esterase Rfl Negative Urine RBC 0-2 Urine WBC 0-5 Ur Squamous Epith Cells None seen Urine Bacteria None seen Urine Casts >20 Hyaline Casts Present 10/29/23 10/29/23 03:20 03:20 WBC 15.3 H RBC 4.57 L Hgb 15.4 Hct 45.4 MCV 99.3 MCH 33.7 MCHC 33.9 RDW 13.3 Plt Count 229 MPV 8.9 Immature Gran % (Auto) 0.7 H Neut % (Auto) 85.6 H Lymph % (Auto) 7.4 L [place] % (Auto) 6.0 Eos % (Auto) 0.0 Baso % (Auto) 0.3 Lymph # (Auto) 1.13 [place] # (Auto) 0.9 H Eos # (Auto) 0.0 Baso # (Auto) 0.0 Abs Immat Gran (auto) 0.11 H Absolute Neuts (auto) 13.1 H Absolute Nucleated RBC 0.000 Nucleated RBC % 0.0 Sodium 133 L Potassium 4.8 Chloride 101 Carbon Dioxide 20 L Anion Gap 12 BUN 20 Creatinine 1.30 Estim Creat Clear Calc 71 Estimated GFR 57 L Glucose 164 H Lactic Acid 2.9 H 3.0 H Calcium 8.5 Total Bilirubin 0.7 AST 65 H ALT 62 H Alkaline Phosphatase 66 Total Protein 6.0 L Albumin 3.9 Lipase Urine Color Urine Appearance Urine pH Ur Specific [place] Urine Protein Urine Glucose (UA) Urine Ketones Ur Blood (Man) Urine Nitrate Urine Bilirubin Urine Urobilinogen Leukocyte Esterase Rfl Urine RBC Urine WBC Ur Squamous Epith Cells Urine Bacteria Urine Casts Hyaline Casts Post-procedural complaints: none Patient Feedback: Patient satisfied with anesthetic care.
[2023-10-29] MEDS: ENOXAPARIN 40 MG/0.4 ML SYRINGE SUB-Q (09:59)
[2023-10-29] MEDS: PANTOPRAZOLE SODIUM IV 40 MG VIAL IV PUSH (09:59)
[2023-10-29] MEDS: LACTATED RINGERS 1,000 ML 999 ML IV CONT (10:13)
--- NOTE | 2023-10-29 12:29 | PM.PNGS ---
Progress Note: A&P Assessment and Plan (1) Incarcerated ventral hernia: Code(s): K43.6 - Other and unspecified ventral hernia with obstruction, without gangrene Status: Acute Assessment and Plan: Patient presented with an incarcerated ventral hernia containing multiple loops of small bowel. He was taken to surgery for repair late last night and underwent an open incarcerated ventral hernia repair without mesh. There was a large amount of small bowel incarcerated in the hernia sac that had severe venous congestion with mild ischemic changes, but no raman necrosis. After the hernia sac was opened, the vascular congestion of the bowel and mesentery improved with the bowel appeared viable avoiding any bowel resection. He has a NG tube is in place. It will not be surprising if he develops an ileus. Will keep him NPO with IV fluids and NG decompression today. Continue to monitor his NANCY drain, which is in the subcutaneous space. Will give him a 1 liter bolus of IV fluids this morning due to a slight bump in his creatinine and still having an elevated lactic acid. Will repeat a lactic this afternoon and reassess. Continue to monitor closely. He is wearing an abdominal binder and getting up to the chair today. Plan I have discussed the patient's case and plan of care with Dr. Flores. Subjective Subjective Date/Time Seen: 10/29/23 09:29 Patient reports: feels better, pain is less, no flatus and no bowel movement Interval history: Patient reports feeling much better today. He feels like his abdominal pain he was feeling yesterday before surgery is gone. He now only has some soreness and pain with movement at his abdominal incision. No nausea. He has an NG tube in place. No flatus, reports belching this morning. He is up in the chair and did well with this. He did have a low grade temp of 99.7F around 1:30 am this morning. 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 His creatinine also went up slightly from 1.1 to 1.3 this morning on his labs. Lactic acid on admission was 3.0 and has been repeat multiple times. It went down to 2.7 and back up to 3.0 early this morning. I discussed all of these findings with Dr. Flores this morning. Review of Systems Review of Systems: All systems reviewed & are unremarkable except as noted in HPI and below Constitutional: Constitutional: Denies chills and Denies fever(s) Cardiovascular: Cardiovascular: Denies chest pain, Denies chest pain at rest, Denies chest pain with activity and Denies rapid heart rate Respiratory: Respiratory: Reports no additional respiratory complaints, Denies dyspnea and Denies dyspnea on exertion Objective Data Vital Signs Vital Signs: Vital Signs - 24 hr 10/28/23 16:12 10/28/23 16:29 10/28/23 16:31 Temperature 97.2 F L Pulse Rate 70 72 73 Respiratory Rate 18 24 H 20 Blood Pressure 156/106 H 154/82 H 140/99 H Pulse Oximetry 100 100 100 Oxygen Delivery Room Air Oxygen Flow Rate Fraction of Inspired Oxygen 10/28/23 18:13 10/28/23 19:06 10/28/23 17:06 Temperature 97.9 F 98.2 F Pulse Rate 87 85 88 Respiratory Rate 16 20 22 H Blood Pressure 178/85 H 179/100 H Pulse Oximetry 98 98 100 Oxygen Delivery Oxygen Flow Rate Fraction of Inspired Oxygen 10/28/23 17:31 10/28/23 18:15 10/28/23 18:16 Temperature Pulse Rate 84 88 84 Respiratory Rate 27 H 26 H 23 H Blood Pressure 143/103 H 178/85 H 180/93 H Pulse Oximetry 99 96 94 Oxygen Delivery Oxygen Flow Rate Fraction of Inspired Oxygen 10/28/23 18:31 10/28/23 18:46 10/28/23 20:14 Temperature Pulse Rate 76 85 86 Respiratory Rate 24 H 20 18 Blood Pressure 182/87 H 175/89 H 176/91 H Pulse Oximetry 97 98 97 Oxygen Delivery Oxygen Flow Rate Fraction of Inspired Oxygen 10/28/23 20:16 10/28/23 23:14 10/28/23 23:30 Temperature 97.0 F L 97.0 F L Pulse Rate 82 77 92 Respiratory Rate 25 H 20 18 Blood Pressure 171/102 H 159/9
[2023-10-29 13:34] LABS: Lactic Acid Reflex 3.6 mmol/L (0.7-2.0)
--- NOTE | 2023-10-29 13:50 | PM.IMHP ---
H&P: HPI History of Present Illness Date/Time: 10/29/23 13:50 Chief Complaint: Abdomen pains Narrative: 58 year old with PMH of copd, htn and hypothyroidism Pt started having severe abdominal pains at 130pm yesterday. Pt has a ventral hernia noticed that it felt hard. He tried to massage it down but it stayed hard. Pt states he had a bowel movement that day does not usually have any problems with constipation. Pt seen by surgery MD sp Emergent reduction of the incarcerated small bowel and primary repair of the ventral hernia without mesh yesterday. Pt with NG tube in situ significant improvement with abdominal pains and less distension of his abdomen Review of Systems Review of Systems: Mild abdominal pains and mild distension PMFSH Past Medical History Medical History Abnormal EKG Chronic obstructive pulmonary disease Chronic shortness of breath Essential (primary) hypertension Hypothyroid Milia of eyelid Syncopal episodes Tinea pedis Vitamin D deficiency Surgical History Surgical History No history of previous surgery Family History Family History Father Heart disease Mother Thyroid disease Mother Family history of thyroid disease Father Family history of coronary artery disease Hypertension Social History Social History Social History: Patient is . Lives with his in [place]. Patient works for [employer]. Smoking packs per day: 1 Smoking cigarettes per day: 20.0 Years smoked: 40 Smoking pack-years: 40.00 Smoking status: Current every day smoker Tobacco type: cigarettes Second hand tobacco smoke exposure: No Alcohol intake: current Drinks per week: 4 Alcohol use details: social drinker Substance use: never Substance use type: does not use Do You Feel Safe in your Home?: Yes Lack of Transportation: No Lack of Food: Never True Current Housing: I Have Housing Concerned About Future Housing: No Difficulty Paying Gas/Electric Bills: No Difficulty Paying for Meds: YES Currently Unemployed: No Education: High School Diploma/GED Difficulty w/ Childcare or Family Care: No Living arrangements: with family Occupation/Education: occupation Gender identity (if verbalized by the patient): Male Sexual Orientation (if Verbalized by the Patient): Straight or Heterosexual Spiritual care concerns: No Agree to blood products: Yes Meds Home Medications and Allergies Home Medications Medication Instructions Recorded Confirmed Type pravastatin 10 mg tablet 10 mg PO QHS #90 tabs 05/22/23 10/29/23 Rx clotrimazole-betamethasone 1 1 applic topical BID 4 weeks #45 09/21/23 10/29/23 Rx %-0.05 % topical cream grams lisinopril 20 2 tablet PO DAILY #180 tabs 10/06/23 10/29/23 Rx mg-hydrochlorothiazide 12.5 mg tablet albuterol sulfate 90 mcg/actuation 2 inh inhalation Q4H PRN shortness 10/07/23 10/29/23 Rx aerosol inhaler (Ventolin HFA) of breath or wheezing #8.5 grams levothyroxine 100 mcg tablet 100 mcg PO DAILY #90 tabs 10/12/23 10/29/23 Rx aspirin 500 mg tablet 500 mg PO PRN PRN Pain (Scale 10/29/23 10/29/23 History Score 1-3) fluticasone fur. 100 mcg-umeclid 1 inh inhalation HS 10/29/23 10/29/23 History 62.5 mcg-vilant 25 mcg inhalat.powder (Trelegy Ellipta) Allergies Allergy/AdvReac Type Severity Reaction Status Date / Time terbinafine Allergy Mild Hives Verified 10/28/23 16:17 Vital Signs Vital Signs - 24 hr 10/28/23 16:12 10/28/23 16:29 10/28/23 16:31 Temperature 36.2 C L Pulse Rate 70 72 73 Respiratory Rate 18 24 H 20 Blood Pressure 156/106 H 154/82 H 140/99 H Pulse Oximetry 100 100 100 Oxygen Delivery Room Air Oxygen Flow Rate Fraction of Inspired Oxyg
[2023-10-29] MEDS: SODIUM CHLORIDE 0.9% IV 500 ML 200 ML IV CONT (15:12)
[2023-10-29 16:23] LABS: Reflex Lactic Acid Yes or No Add Lactic
[2023-10-29 17:00] LABS: Lactic Acid 3.8 mmol/L (0.7-2.0)
[2023-10-29] MEDS: LEVALBUTEROL HFA (*SP) 15 GM INHALER 2 PUFF INHALATION (17:56)
[2023-10-29] MEDS: SODIUM CHLORIDE 0.9% IV 1,000 ML 150 ML IV CONT (18:09)
[2023-10-29] MEDS: IPRATROPIUM BR 0.02% INH SOLN 0.5 MG/2.5 ML VIAL INHALATION (20:36)
[2023-10-29] MEDS: LEVALBUTEROL NEB 1.25 MG/3 ML INHALATION (20:36)
[2023-10-29] MEDS: FLUTICASONE/UMECLIDIN/VILANTER 100-62.5-25 MCG ELLIPTA 1 PUFF INHALATION (20:42)
[2023-10-30] VITALS (20 sets, daily range): BP systolic 95–118; BP diastolic 53–74; PULSE 102–123; RESP 16–24; TEMP 36.1–36.6; O2SAT 93–98
[2023-10-30] MEDS: MAG HYDROX/AL HYDROX/SIMETH 30 ML UDC PO ×3 (00:07→17:40)
[2023-10-30] MEDS: IBUPROFEN IV 800 MG/200 ML 800 MG/200 ML BAG 400 MG IVPB (00:07)
[2023-10-30] MEDS: PIPERACILLN/TAZ 3.375GM/NS50ML 3.375 GM/50 ML BAG IVPB ×4 (02:05→20:20)
[2023-10-30] MEDS: LEVALBUTEROL NEB 1.25 MG/3 ML INHALATION ×4 (02:38→20:03)
[2023-10-30] MEDS: IPRATROPIUM BR 0.02% INH SOLN 0.5 MG/2.5 ML VIAL INHALATION ×4 (02:38→20:04)
[2023-10-30] MEDS: SODIUM CHLORIDE 0.9% IV 1,000 ML 150 ML IV CONT ×3 (04:50→20:18)
[2023-10-30 05:37] LABS: Hemoglobin 14.5 g/dL (14.0-18.0); Mean Corpuscular Hemoglobin 33.5 pg (26-34); Mean Corpuscular Volume 101.6 fl (80-100); Mean Platelet Volume 9.2 fl (7.4-10.4); Platelet Count Result 211 k/mm3 (150-375); Red Blood Count 4.33 M/mm3 (4.6-6.20); Red Cell Distribution Width 13.8 % (11.5-14.5); White Blood Count 11.6 K/mm3 (4.5-10.0)
[2023-10-30] MEDS: LEVOTHYROXINE SODIUM 100 MCG TABLET PO (05:42)
[2023-10-30 05:52] LABS: Anion Gap 15 mmol/L (4-12); Blood Urea Nitrogen 43 mg/dL (9-20); Calcium 8.2 mg/dL (8.4-10.2); Carbon Dioxide 20 mmol/L (22-30); Chloride 100 mmol/L (98-107); Estimated CRCL calculation 41 ml/min; Estimated Glomerular Filt Rate 29; Glucose 150 mg/dL (65-110); Potassium 4.3 mmol/L (3.4-5.0); Sodium 135 mmol/L (137-145)
[2023-10-30 05:53] LABS: Lactic Acid Reflex 3.2 mmol/L (0.7-2.0)
[2023-10-30] MEDS: HYDROmorphone HCL INJ (*CRX) 1 MG/ML SYR IV PUSH ×3 (06:41→19:00)
--- NOTE | 2023-10-30 08:25 | PM.CNNEP ---
Assessment and Plan Assessment and plan (1) Acute kidney injury: Code(s): N17.9 - Acute kidney failure, unspecified Status: Acute Assessment and Plan: the patient has acute kidney injury. He did have strangulated bowel plus also surgeon and 3rd spacing with that. The patient also did have 2 loads of contrast. He is on ibuprofen. So I think this is probably ATN. Other less likely causes would be obstruction, glomerulonephritis, interstitial nephritis , or rhabdomyolysis I will get urine electrolytes, CPK, and renal ultrasound. Will stop the ibuprofen. he is getting IV fluids. Will change the IV enalaprilat p.r.n. blood pressure to p.o. hydralazine p.r.n. (2) Incarcerated ventral hernia: Code(s): K43.6 - Other and unspecified ventral hernia with obstruction, without gangrene Status: Acute Assessment and Plan: He was taken to surgery night before last. Bowel seemed viable. White count is coming down and so his lactic acid. (3) Essential (primary) hypertension: Code(s): I10 - Essential (primary) hypertension Status: Chronic Assessment and Plan: Blood pressure is under good control. (4) Hyperlipidemia: Qualifiers: Hyperlipidemia type: unspecified Qualified Code(s): E78.5 - Hyperlipidemia, unspecified Code(s): E78.5 - Hyperlipidemia, unspecified Status: Acute Assessment and Plan: he is on pravastatin at home (5) Chronic obstructive pulmonary disease: Qualifiers: COPD type: emphysema Emphysema type: unspecified Qualified Code(s): J43.9 - Emphysema, unspecified Code(s): J44.9 - Chronic obstructive pulmonary disease, unspecified Status: Acute Assessment and Plan: he is getting supportive care (6) Tobacco abuse: Code(s): Z72.0 - Tobacco use Status: Acute Assessment and Plan: advised to quit History of Present Illness Reason for Consult Consult date: 10/30/23 Chief Complaint Chief complaint: severe abd pain History of Present Illness Narrative: Patrick is a very pleasant 58-year-old gentleman who has an elevated creatinine. He came into the hospital on the because he had severe abdominal pain. He had a known ventral hernia. In the middle of the afternoon on the day of admission he started getting nausea vomiting and abdominal pain. This continued to worsen so he went to the ER. he had a CT with contrast. Surgery saw the patient. He was found to have an incarcerated hernia With multiple loops of small bowel. The patient went for emergent surgery. Thankfully no colon had to be resected. He was placed in the ICU overnight with NG decompression antibiotics IV fluids and supportive care. The following day he had another CT scan with contrast. His creatinine did rise slightly from the 24th to 25th from 1.1-1.3. He was given some more IV fluids. Today the creatinine was up to 2.3 so renal consultation was requested. Today the patient is off the ventilator. His white count has fallen . His lactic acid is trending downwards. He has allergies to terbinafine. He drinks alcohol and he smokes cigarettes about 1 pack a day. He says he knows he should quit. He will try Review of Systems Constitutional: Constitutional: Reports no additional constitutional complaints Eyes: Eyes: Reports no additional eye complaints ENT: Reports system reviewed and no additional complaints, except as documented Cardiovascular: Cardiovascular: Reports no additional cardiovascular complaints Respiratory: Respiratory: Reports no additional respiratory complaints Gastrointestinal: Gastrointestinal: Reports no additional gastrointestinal complaints Genitourinary: Genitourinary: Reports no additional male genitourinary complaints Musculoskeletal: Musculoskeletal: Reports no additional musculoskeletal complaints Integumentary/Breasts: Skin/Breast: R
[2023-10-30 08:33] LABS: Reflex Lactic Acid Yes or No Add Lactic
[2023-10-30] MEDS: ENOXAPARIN 40 MG/0.4 ML SYRINGE SUB-Q (08:34)
[2023-10-30] MEDS: lisinopriL 20 MG TABLET PO (08:34)
[2023-10-30] MEDS: PANTOPRAZOLE SODIUM IV 40 MG VIAL IV PUSH (08:34)
[2023-10-30] MEDS: hydroCHLOROthiazide 12.5 MG CAPSULE PO (08:34)
[2023-10-30 10:10] LABS: Lactic Acid 2.6 mmol/L (0.7-2.0)
[2023-10-30 10:11] LABS: Creatine Kinase 340 U/L (55-170)
--- NOTE | 2023-10-30 10:11 | WPDPN ---
Progress Note: A&P Assessment and Plan (1) Incarcerated ventral hernia: Code(s): K43.6 - Other and unspecified ventral hernia with obstruction, without gangrene Status: Acute Assessment and Plan: Incarcerated ventral hernia is now resolved with primary repair the defect. Small bowel viability seems to be improving. Lactic acid level was decreasing now. Acute kidney injury may have contributed to the persistent elevation in his lactic acid levels in the last 24hours. We will go ahead and stopping lactic acid levels. Continue on IV antibiotics. Continue abdominal binder and the subcutaneous drain. Still has a postoperative ileus and so will leave the nasogastric tube in place for right now. (2) Acute kidney injury: Code(s): N17.9 - Acute kidney failure, unspecified Status: Acute Assessment and Plan: Nephrology consult has been done. Dr. Kenney has seen and evaluated the patient. He feels this is likely acute kidney injury due to recent surgery and bowel obstruction. Also patient has had 2 IV contrast dye loads in the past 48hours. This is all likely pretty reversible and he is going to do renal workup. IV ibuprofen has been stopped and Nathan inhibitors have been stopped as well. Subjective Date/time seen: 10/30/23 10:11 Interval history: Patient is now postop day 2 after repair of incarcerated primary ventral hernia without mesh. The bowel was mildly ischemic but not necrotic and was viable. His lactic acid level trended up a little yesterday but today is now decreasing. His abdominal exam today is improving and he has been walking in the hallways. His creatinine did double and his GFR decreased significantly. He had an IV contrast dye load for a CT scan yesterday to evaluate the viability of the small bowel. Also have 3rd face shifting of fluids and the stress of surgery. I have consulted nephrology to see the patient. No nausea or vomiting but is NG tube is putting out 1200cc over last 24hours. No flatus or bowel movement yet. He continues on Zosyn for IV antibiotics. white blood cell count is decreasing today. No fever. Exam GI: Other: Abdomen is obese but soft. Midline incision is is intact without any redness or drainage. Danese are in place. The lower quadrant subcutaneous NANCY drain has mostly serous some blood tinged drainage. No seroma or hematoma. Objective Data Vital Signs Vital Signs: Vital Signs - 24 hr 10/29/23 12:19 10/29/23 12:55 10/29/23 13:34 Temperature 36.7 C Pulse Rate 118 H 113 H 114 H Respiratory Rate 16 16 20 Blood Pressure 105/56 L 105/66 Pulse Oximetry 94 97 Oxygen Delivery 10/29/23 13:42 10/29/23 10:15 10/29/23 12:00 Temperature Pulse Rate 113 H 123 H Respiratory Rate 20 Blood Pressure Pulse Oximetry Oxygen Delivery Room Air 10/29/23 16:00 10/29/23 18:00 10/29/23 18:08 Temperature 36.4 C L Pulse Rate 123 H 124 H 124 H Respiratory Rate 20 16 Blood Pressure 115/71 Pulse Oximetry 92 Oxygen Delivery 10/29/23 20:00 10/29/23 20:39 10/29/23 20:50 Temperature 36.6 C Pulse Rate 130 H 120 H 119 H Respiratory Rate 20 20 20 Blood Pressure 102/66 Pulse Oximetry 95 Oxygen Delivery 10/29/23 21:16 10/30/23 00:00 10/29/23 20:00 Temperature 36.5 C Pulse Rate 122 H 130 H Respiratory Rate 20 Blood Pressure 101/65 Pulse Oximetry 98 Oxygen Delivery Room Air 10/30/23 00:00 10/30/23 02:41 10/30/23 04:00 Temperature Pulse Rate 121 H 120 H 120 H Respiratory Rate 20 Blood Pressure Pulse Oximetry Oxygen Delivery 10/30/23 04:00 10/30/23 07:44 10/30/23 08:03 Temperature 36.6 C 36.6 C Pulse Rate 112 H 123 H Respiratory Rate 20 20 Blood Pressure 113/74 95/71 L Pulse Oximetry 93 94 94 Oxygen Delivery Room Air 10/30/23 08:04 10/30/23 08:13 10/30/23 08:29 Temperature 36.5 C Pulse Rate 115 H 120 H 114 H Respiratory Rate 20 20 16 Bl
[2023-10-30] MEDS: PHENOL/SOD PHENO SPRAY CHERRY (*BKC) 1 SPRAY MUCOUS MEM ×4 (10:56→20:28)
--- NOTE | 2023-10-30 12:20 | PM.IMPN ---
Progress Note: A&P Assessment and Plan (1) Small bowel strangulation: Code(s): K56.2 - Volvulus Status: Acute Assessment and Plan: Pt sp ventral hernia surgery Pt is NPO with NG tube and IV fluids Surgery MD rounding watch labs daily Pt adviced to walk the halls (2) Abdominal pain: Code(s): R10.9 - Unspecified abdominal pain Status: Acute Assessment and Plan: Much improved since surgery IVdilaudid prn severe pain Iv ibuprofen stopped (3) Incarcerated ventral hernia: Code(s): K43.6 - Other and unspecified ventral hernia with obstruction, without gangrene Status: Acute Assessment and Plan: Pt sp ventral hernia surgery post op day 1 Pt with NG tube in situ Npo with IV fluids Surgery team rounding Continue IV zosyn Watch wcc and lactic level if lactic level worsens pt needs to go back to OR (4) Hypothyroid: Qualifiers: Hypothyroidism type: acquired Qualified Code(s): E03.9 - Hypothyroidism, unspecified Code(s): E03.9 - Hypothyroidism, unspecified Status: Chronic Assessment and Plan: Reorder thyroid medications via NG (5) Essential (primary) hypertension: Code(s): I10 - Essential (primary) hypertension Status: Chronic Assessment and Plan: Reorder HTN meds via NG (6) Tobacco abuse: Code(s): Z72.0 - Tobacco use Status: Acute Assessment and Plan: Pt smokes 1 pack a day refuses nicotine patch at the moment Smoking cessation advised (7) Acute kidney injury: Code(s): N17.9 - Acute kidney failure, unspecified Status: Acute Assessment and Plan: Creat is raising to over 2 today DC iv ibuprofen watch bmp and uo Nephrology MD rounding Continue to hydrate with fluids Subjective Date/time seen: 10/30/23 12:20 Interval history: 10/28 Pt seen by surgery MD sp Emergent reduction of the incarcerated small bowel and primary repair of the ventral hernia without mesh yesterday. Pt with NG tube in situ significant improvement with abdominal pains and less distension of his abdomen 10/29 labs show -wcc is better, creat raising up nephrology consulted plan to stop iv ibuprofen and continue to hydrate pt remains npo with iv fluids and ng tube. pt feels less bloated than yesterday, pt feels hungry continue npo diet or now. surgery MD rounding Watch lactic level if it worsens pt will need to go to OR Continue to watch labs carefully. continue iv zosyn wcc is improving Review of Systems Review of Systems: Pt feels better today less bloated HR coming down Exam Const: General: in distress (Mild distress of abdominal pain.) and uncomfortable Other: NG tube in situ HENMT: Ears: TM's normal bilaterally Face/Nose/Sinus: Normal nares present Mouth: Yes moist mucous membranes Eyes: General: appearance normal, both eyes and all related structures Sclera: sclerae normal Pupils: Equal, round and reactive pupils present EOM: EOMs intact bilaterally Neck: Neck: supple and no JVD Resp: Effort & Inspection: normal respiratory effort Auscultation: clear to auscultation bilaterally Cardio: Rate: regular rate Rhythm: regular rhythm GI: Other: sp ventral hernia repair without mesh fresh dressing on abdomen : Male General Exam: Yes normal external exam Skin: General skin exam: normal color and no rashes or lesions noted Neuro: General: gait normal Cranial nerves: Yes Equal, round and reactive pupils present Speech: normal speech Motor exam (neuro): 5/5 motor strength present throughout and Motor abnormalites present Sensory Exam: normal sensation Extrem: General: normal to inspection Psych: Mental Status: mental status grossly normal Affect: normal affect Objective Data Vital Signs Vital Signs: Vital Signs - 24 hr 10/29/23 12:55 10/29/23 13:34 10/29/23 13:42 Temperature Pulse Rate 113 H 114 H 113 H Respiratory Rate
[2023-10-30] MEDS: diazePAM INJ (*CRX) 10 MG/2 ML SYRINGE 5 MG IV PUSH (13:01)
[2023-10-30 14:13] LABS: Creatinine Urine 216.2 mg/dL; Total Protein Urine Random 29 mg/dL; Ur Ttl Prot Creatinine Ratio 0.13 mg/mg (0-0.20); Urea Random Urine 838 MG/DL
[2023-10-30 14:14] LABS: Sodium Urine Random 29 meq/L
--- NOTE | 2023-10-30 17:22 | PC.NURSE ---
pt to see Dr. Roberson in his office for right heel pain/unhealed wound on Wednesday 11/01. Was asked by Dr. Ren if Dr. Roberson could see patient while in hospital. Contacted clerk secretary for Dr. Roberson's office and was told that since patient is not already established, provider will not be seeing patient while he is inpatient as this is not emergent and the appointment will need to be rescheduled. Notified Dr. Ren
[2023-10-30 19:56] LABS: Glucose Point of Care 125 mg/dl (65-105)
[2023-10-30] MEDS: FLUTICASONE/UMECLIDIN/VILANTER 100-62.5-25 MCG ELLIPTA 1 PUFF INHALATION (20:04)
[2023-10-31] VITALS (14 sets, daily range): BP systolic 112–134; BP diastolic 59–82; PULSE 87–113; RESP 16–20; TEMP 35.7–36.7; O2SAT 93–97
[2023-10-31] MEDS: diazePAM INJ (*CRX) 10 MG/2 ML SYRINGE 5 MG IV PUSH ×2 (00:52→13:06)
[2023-10-31] MEDS: PIPERACILLN/TAZ 3.375GM/NS50ML 3.375 GM/50 ML BAG IVPB ×4 (01:02→21:40)
[2023-10-31] MEDS: PHENOL/SOD PHENO SPRAY CHERRY (*BKC) 1 SPRAY MUCOUS MEM ×3 (01:04→16:46)
[2023-10-31] MEDS: IPRATROPIUM BR 0.02% INH SOLN 0.5 MG/2.5 ML VIAL INHALATION ×4 (02:22→20:30)
[2023-10-31] MEDS: LEVALBUTEROL NEB 1.25 MG/3 ML INHALATION ×4 (02:22→20:30)
--- NOTE | 2023-10-31 03:28 | PC.NURSE ---
Called pharmacy to retime Fanny that was due at 0054 for now after receiving KUB result.
[2023-10-31] MEDS: MAG HYDROX/AL HYDROX/SIMETH 30 ML UDC PO ×3 (03:43→18:32)
[2023-10-31] MEDS: SODIUM CHLORIDE 0.9% IV 1,000 ML 150 ML IV CONT ×3 (03:44→18:32)
[2023-10-31] MEDS: LEVOTHYROXINE SODIUM 100 MCG TABLET PO (05:21)
[2023-10-31 05:26] LABS: Hematocrit 35.6 % (42.0-52.0); Hemoglobin 11.9 g/dL (14.0-18.0); Mean Corpuscular HGB Conc 33.4 g/dl (32-36); Mean Corpuscular Volume 101.7 fl (80-100); Mean Platelet Volume 8.9 fl (7.4-10.4); Platelet Count Result 179 k/mm3 (150-375)
[2023-10-31 05:41] LABS: Albumin Level 3.4 g/dL (3.5-5.1); Anion Gap 9 mmol/L (4-12); Blood Urea Nitrogen 48 mg/dL (9-20); Carbon Dioxide 24 mmol/L (22-30); Chloride 103 mmol/L (98-107); Estimated CRCL calculation 38 ml/min; Estimated Glomerular Filt Rate 27; Glucose 127 mg/dL (65-110); Phosphorus 2.8 mg/dL (2.5-4.5); Potassium 3.8 mmol/L (3.4-5.0); Sodium 136 mmol/L (137-145)
[2023-10-31 05:43] LABS: Lactic Acid Reflex 1.2 mmol/L (0.7-2.0)
--- NOTE | 2023-10-31 08:46 | PM.PNNEP ---
Progress Note: A&P Assessment and Plan (1) Acute kidney injury: Code(s): N17.9 - Acute kidney failure, unspecified Status: Acute Assessment and Plan: the patient has acute kidney injury. Total CK only 340 Urine electrolytes are pre renal UA was bland Renal ultrasound is unremarkable The patient made only 500cc of urine yesterday Most likely renal failure is due to a combination of pre renal azotemia, 3rd spacing from the surgery, strangulated bowel issue, contrast. Ibuprofen may or may not have played a role but a minor 1 if any Lactic acid and white count are both down. Belly looks better. he is getting IV fluids at 150 per hour. Intake/output was equal. Will keep the same fluids going Creatinine antonia but only a little bit. Hopefully he is starting to plateau and will improve shortly (2) Incarcerated ventral hernia: Code(s): K43.6 - Other and unspecified ventral hernia with obstruction, without gangrene Status: Acute Assessment and Plan: He was taken to surgery night before last. Bowel seemed viable. White count is coming down and so his lactic acid. (3) Essential (primary) hypertension: Code(s): I10 - Essential (primary) hypertension Status: Chronic Assessment and Plan: Blood pressure is under good control. No need for antihypertensives right now (4) Hyperlipidemia: Qualifiers: Hyperlipidemia type: unspecified Qualified Code(s): E78.5 - Hyperlipidemia, unspecified Code(s): E78.5 - Hyperlipidemia, unspecified Status: Acute Assessment and Plan: he is on pravastatin at home (5) Chronic obstructive pulmonary disease: Qualifiers: COPD type: emphysema Emphysema type: unspecified Qualified Code(s): J43.9 - Emphysema, unspecified Code(s): J44.9 - Chronic obstructive pulmonary disease, unspecified Status: Acute Assessment and Plan: he is getting supportive care (6) Tobacco abuse: Code(s): Z72.0 - Tobacco use Status: Acute Assessment and Plan: advised to quit Subjective Date/time seen: 10/31/23 08:46 Interval history: Patrick feels better today. His belly is doing well. He is not short of breath. Review of Systems Cardiovascular: Cardiovascular: Reports no additional cardiovascular complaints Respiratory: Respiratory: Reports no additional respiratory complaints Gastrointestinal: Gastrointestinal: Reports no additional gastrointestinal complaints Genitourinary: Genitourinary: Reports no additional male genitourinary complaints Exam Narrative: WDWN in NAD skin no rash head ncat lungs clear cor reg no rub abd BS+ postop nontender except for wound area and soft ext no edema. Objective Data Vital Signs Vital Signs: Vital Signs - 24 hr 10/30/23 13:42 10/30/23 13:42 10/30/23 13:51 Temperature Pulse Rate 108 H 102 H Respiratory Rate 24 H 20 Blood Pressure Pulse Oximetry 94 Oxygen Delivery Room Air 10/30/23 14:10 10/30/23 12:00 10/30/23 16:08 Temperature 97 F L 97 F L Pulse Rate 113 H 110 H 102 H Respiratory Rate 16 20 Blood Pressure 98/63 L 102/55 L Pulse Oximetry 93 96 Oxygen Delivery 10/30/23 16:00 10/30/23 20:05 10/30/23 20:06 Temperature Pulse Rate 103 H 105 H Respiratory Rate 20 Blood Pressure Pulse Oximetry 95 Oxygen Delivery Room Air 10/30/23 20:00 10/30/23 20:00 10/30/23 20:16 Temperature 97.4 F L Pulse Rate 107 H 104 H Respiratory Rate 18 Blood Pressure 107/56 L Pulse Oximetry 94 Oxygen Delivery Room Air 10/30/23 23:55 10/30/23 20:18 10/31/23 02:24 Temperature 97.3 F L Pulse Rate 103 H 108 H 94 Respiratory Rate 18 20 20 Blood Pressure 108/53 L Pulse Oximetry 93 Oxygen Delivery 10/31/23 00:00 10/31/23 04:00 10/31/23 02:34 Temperature Pulse Rate 100 108 H 94 Respiratory Rate 20 Blood Pressure Pulse Oximetry Oxy
[2023-10-31] MEDS: PANTOPRAZOLE SODIUM IV 40 MG VIAL IV PUSH (08:51)
[2023-10-31] MEDS: ENOXAPARIN 40 MG/0.4 ML SYRINGE SUB-Q (08:51)
--- NOTE | 2023-10-31 09:37 | P.PNIM_ITS ---
Progress Note: A&P Assessment and Plan (1) Incarcerated ventral hernia: Code(s): K43.6 - Other and unspecified ventral hernia with obstruction, without gangrene Status: Acute Assessment and Plan: 10/31/23: * Patient is postop day 3 from an open incarcerated ventral hernia repair without mesh * NG tube remains in place with high output noted yesterday 2910 mL * Continue NPO and IV fluids * General surgery following * Lactic acid today 1.2, white blood cell count 8.0 * Continue Zosyn * Continue cardiac monitoring * Continue incentive spirometer (2) Small bowel strangulation: Code(s): K56.2 - Volvulus Status: Acute Assessment and Plan: 10/28/23: * Initial abdomen pelvis CT shown large wide necked supraumbilical ventral hernia containing multiple loops of nonobstructed small bowel, mesenteric stranding within the hernia sac likely due to inflammation versus venous congestion * See above fluid care (3) Ileus: Code(s): K56.7 - Ileus, unspecified Status: Acute Assessment and Plan: 10/28/23: * KUB today still showing mildly dilated small bowel loops in the left upper abdomen representing ileus or small-bowel obstruction * Continue with NG tube * NG with high output of 2910 mL over the last 24 hours * General surgery following (4) Acute kidney injury: Code(s): N17.9 - Acute kidney failure, unspecified Status: Acute Assessment and Plan: 10/28/23: * Likely secondary to strangulated bowel verses 2 loads of contrast versus ATN * Creatinine 2.5, EGFR 27 today * Baseline creatinine 0.9-1.3 * Continue IV fluids * Nephrology following * He was on ibuprofen and this was stopped due to his renal function * Renal ultrasound was unremarkable (5) Hypothyroid: Qualifiers: Hypothyroidism type: acquired Qualified Code(s): E03.9 - Hypothyroidism, unspecified Code(s): E03.9 - Hypothyroidism, unspecified Status: Chronic Assessment and Plan: 10/31/23: * Continue Synthroid (6) Essential (primary) hypertension: Code(s): I10 - Essential (primary) hypertension Status: Chronic Assessment and Plan: 10/31/23: * Blood pressure ranging 108/53 to 118/61 * Will hold lisinopril and hydrochlorothiazide due to SINAN * Hydralazine 10 mg q.6 hours ordered as needed for systolic greater than 160 (7) Insomnia: Code(s): G47.00 - Insomnia, unspecified Status: Acute Assessment and Plan: 10/31/23: * Benadryl 25 mg ordered for at night for sleep Time Spent With Patient Time with patient: Greater than 35 minutes Subjective Date/time seen: 10/31/23 09:37 Interval history: This is a 58-year-old male presented to the hospital on 10/29/2023 with abdominal pain. Workup in the hospital included abdomen pelvis CT which showed large wide necked supraumbilical ventral hernia containing multiple loops of nonobstructed small bowel, mesenteric stranding within the hernia sac likely inflammation versus venous congestion, cystic verses urinary bladder wall t hickening from outlet compromise. An NG-tube was placed and general surgery was consulted who took patient on 10/28/2023 for an open incarcerated ventral hernia repair without mesh. He continued with the NG tube postop for decompression. Postop CT of the abdomen pelvis on 10/29/2023 shown postoperative changes consistent with hernia repair, dynamic ileus involving the small bowel with moderate free fluid in the abdomen and pelvis, bladder wall thickening possibly due to cystitis. He also had a renal ultrasound wh
--- NOTE | 2023-10-31 09:37 | PM.IMPN ---
Progress Note: A&P Assessment and Plan (1) Incarcerated ventral hernia: Code(s): K43.6 - Other and unspecified ventral hernia with obstruction, without gangrene Status: Acute Assessment and Plan: 10/31/23: Patient is postop day 3 from an open incarcerated ventral hernia repair without mesh NG tube remains in place with high output noted yesterday 2910 mL Continue NPO and IV fluids General surgery following Lactic acid today 1.2, white blood cell count 8.0 Continue Zosyn Continue cardiac monitoring Continue incentive spirometer (2) Small bowel strangulation: Code(s): K56.2 - Volvulus Status: Acute Assessment and Plan: 10/28/23: Initial abdomen pelvis CT shown large wide necked supraumbilical ventral hernia containing multiple loops of nonobstructed small bowel, mesenteric stranding within the hernia sac likely due to inflammation versus venous congestion See above fluid care (3) Ileus: Code(s): K56.7 - Ileus, unspecified Status: Acute Assessment and Plan: 10/28/23: KUB today still showing mildly dilated small bowel loops in the left upper abdomen representing ileus or small-bowel obstruction Continue with NG tube NG with high output of 2910 mL over the last 24 hours General surgery following (4) Acute kidney injury: Code(s): N17.9 - Acute kidney failure, unspecified Status: Acute Assessment and Plan: 10/28/23: Likely secondary to strangulated bowel verses 2 loads of contrast versus ATN Creatinine 2.5, EGFR 27 today Baseline creatinine 0.9-1.3 Continue IV fluids Nephrology following He was on ibuprofen and this was stopped due to his renal function Renal ultrasound was unremarkable (5) Hypothyroid: Qualifiers: Hypothyroidism type: acquired Qualified Code(s): E03.9 - Hypothyroidism, unspecified Code(s): E03.9 - Hypothyroidism, unspecified Status: Chronic Assessment and Plan: 10/31/23: Continue Synthroid (6) Essential (primary) hypertension: Code(s): I10 - Essential (primary) hypertension Status: Chronic Assessment and Plan: 10/31/23: Blood pressure ranging 108/53 to 118/61 Will hold lisinopril and hydrochlorothiazide due to SINAN Hydralazine 10 mg q.6 hours ordered as needed for systolic greater than 160 (7) Insomnia: Code(s): G47.00 - Insomnia, unspecified Status: Acute Assessment and Plan: 10/31/23: Benadryl 25 mg ordered for at night for sleep Time Spent With Patient Time with patient: Greater than 35 minutes Subjective Date/time seen: 10/31/23 09:37 Interval history: This is a 58-year-old male presented to the hospital on 10/29/2023 with abdominal pain. Workup in the hospital included abdomen pelvis CT which showed large wide necked supraumbilical ventral hernia containing multiple loops of nonobstructed small bowel, mesenteric stranding within the hernia sac likely inflammation versus venous congestion, cystic verses urinary bladder wall thickening from outlet compromise. An NG-tube was placed and general surgery was consulted who took patient on 10/28/2023 for an open incarcerated ventral hernia repair without mesh. He continued with the NG tube postop for decompression. Postop CT of the abdomen pelvis on 10/29/2023 shown postoperative changes consistent with hernia repair, dynamic ileus involving the small bowel with moderate free fluid in the abdomen and pelvis, bladder wall thickening possibly due to cystitis. He also had a renal ultrasound which was unremarkable. Patient is currently on Zosyn. 10/31/23: KUB today still showing mildly dilated small bowel loops representing ileus versus small-bowel obstruction, NG tube was in good position. NG tube still with high output yesterday of 2910 mL. Patient denies any fever, chills, nausea, vomiting, diarrhea, abdominal pain, chest pain, shortness a breath. Patient states he is not passing any gas and st
--- NOTE | 2023-10-31 11:06 | WPDPN ---
Progress Note: A&P Assessment and Plan (1) Ileus: Code(s): K56.7 - Ileus, unspecified Status: Acute Assessment and Plan: Postoperative ileus. Has not resolved yet. Continue supportive management. Continue nasogastric tube decompression. (2) Incarcerated ventral hernia: Code(s): K43.6 - Other and unspecified ventral hernia with obstruction, without gangrene Status: Acute Assessment and Plan: Resolved, postop day 3. Incision is healing okay. No bowel function yet. Continue IV antibiotics and IV fluids. White blood cell count is normalized. (3) Acute kidney injury: Code(s): N17.9 - Acute kidney failure, unspecified Status: Acute Assessment and Plan: Likely secondary to incarcerated bowel and fluid shifts as well as to IV contrast dye loads in 48hours. Continue supportive management. His creatinine has looks like it has plateaued and will likely start coming down. Nephrology is following. Subjective Date/time seen: 10/31/23 11:06 Interval history: Patient doing a little better today. Sitting up in a chair currently. He has been walking the hallways. Been able to urinate pretty well okay without any difficulty. Creatinine has pretty much stabilized and 1 from 3.2 to 3.5 today. NG tube output is decreasing and slightly bilious. Not passing flatus or bowel movement yet. White blood cell count is normalized. Electrolytes are okay. Exam GI: Other: Abdomen is mildly distended soft. Midline incision is healing well without redness or drainage. [place] in place. Objective Data Vital Signs Vital Signs: Vital Signs - 24 hr 10/30/23 13:42 10/30/23 13:42 10/30/23 13:51 Temperature Pulse Rate 108 H 102 H Respiratory Rate 24 H 20 Blood Pressure Pulse Oximetry 94 Oxygen Delivery Room Air 10/30/23 14:10 10/30/23 12:00 10/30/23 16:08 Temperature 36.1 C L 36.1 C L Pulse Rate 113 H 110 H 102 H Respiratory Rate 16 20 Blood Pressure 98/63 L 102/55 L Pulse Oximetry 93 96 Oxygen Delivery 10/30/23 16:00 10/30/23 20:05 10/30/23 20:06 Temperature Pulse Rate 103 H 105 H Respiratory Rate 20 Blood Pressure Pulse Oximetry 95 Oxygen Delivery Room Air 10/30/23 20:00 10/30/23 20:00 10/30/23 20:16 Temperature 36.3 C L Pulse Rate 107 H 104 H Respiratory Rate 18 Blood Pressure 107/56 L Pulse Oximetry 94 Oxygen Delivery Room Air 10/30/23 23:55 10/30/23 20:18 10/31/23 02:24 Temperature 36.3 C L Pulse Rate 103 H 108 H 94 Respiratory Rate 18 20 20 Blood Pressure 108/53 L Pulse Oximetry 93 Oxygen Delivery 10/31/23 00:00 10/31/23 04:00 10/31/23 02:34 Temperature Pulse Rate 100 108 H 94 Respiratory Rate 20 Blood Pressure Pulse Oximetry Oxygen Delivery 10/31/23 04:00 10/31/23 07:04 10/31/23 07:04 Temperature 36.3 C L Pulse Rate 101 H 87 87 Respiratory Rate 20 18 18 Blood Pressure 118/61 Pulse Oximetry 95 93 Oxygen Delivery Room Air 10/31/23 07:14 10/31/23 08:00 Temperature 36.7 C Pulse Rate 90 93 Respiratory Rate 18 16 Blood Pressure 112/61 Pulse Oximetry 95 Oxygen Delivery Intake/Output Intake/Output: Intake & Output 10/28/23 10/29/23 10/30/23 10/31/23 23:59 23:59 23:59 23:59 Intake Total 1100 2400 3590 1290 Output Total 10 1645 3725 810 Balance 1090 755 -846 480 Meds/Results Medications: Active Medications Generic Name Dose Route Start Last Admin Trade Name Freq PRN Reason Stop Dose Admin Al Hydrox/Mg Hydrox/Simethicone 30 ml 10/31/23 03:30 10/31/23 03:43 Mag Hydrox/Al Hydrox/Simeth 30 Ml Udc PO 30 ml Q8H TANNA Administration Diazepam 5 mg 10/28/23 23:00 10/31/23 00:52 Diazepam Inj (*Crx) 10 Mg/2 Ml Syringe IV PUSH 5 mg Q12H TANNA Administration Enoxaparin Sodium 40 mg 10/29/23 09:00 10/31/23 08:51 Enoxaparin 40 Mg/0.4 Ml Syringe SUB-Q 40 mg DAILY TANNA Administration Fluticasone/Umeclidini
[2023-10-31] MEDS: HYDROmorphone HCL INJ (*CRX) 1 MG/ML SYR IV PUSH (16:45)
[2023-10-31] MEDS: FLUTICASONE/UMECLIDIN/VILANTER 100-62.5-25 MCG ELLIPTA 1 PUFF INHALATION (20:30)
[2023-10-31] MEDS: diphenhydrAMINE HCl INJ 50 MG/ML VIAL 25 MG IV PUSH (21:40)
[2023-11-01] VITALS (18 sets, daily range): BP systolic 115–168; BP diastolic 74–82; PULSE 86–110; RESP 18–22; TEMP 35.6–37.2; O2SAT 96–98
[2023-11-01] MEDS: diazePAM INJ (*CRX) 10 MG/2 ML SYRINGE 5 MG IV PUSH (01:30)
[2023-11-01] MEDS: LEVALBUTEROL NEB 1.25 MG/3 ML INHALATION ×4 (02:15→20:19)
[2023-11-01] MEDS: IPRATROPIUM BR 0.02% INH SOLN 0.5 MG/2.5 ML VIAL INHALATION ×4 (02:15→20:19)
[2023-11-01] MEDS: PIPERACILLN/TAZ 3.375GM/NS50ML 3.375 GM/50 ML BAG IVPB ×4 (02:30→21:26)
[2023-11-01] MEDS: HYDROmorphone HCL INJ (*CRX) 1 MG/ML SYR IV PUSH ×4 (06:21→22:32)
[2023-11-01] MEDS: LEVOTHYROXINE SODIUM 100 MCG TABLET PO (06:21)
--- NOTE | 2023-11-01 07:13 | P.PNIM_ITS ---
Progress Note: A&P Assessment and Plan (1) Incarcerated ventral hernia: Code(s): K43.6 - Other and unspecified ventral hernia with obstruction, without gangrene Status: Acute Assessment and Plan: 10/31/23: * Patient is postop day 3 from an open incarcerated ventral hernia repair without mesh * NG tube remains in place with high output noted yesterday 2910 mL * Continue NPO and IV fluids * General surgery following * Lactic acid today 1.2, white blood cell count 8.0 * Continue Zosyn * Continue cardiac monitoring * Continue incentive spirometer 11/01/23: * Zosyn completed * Continue IS * Continue ambulating in the halls * NG tube clamped today * General surgery following and plans to give suppository * Currently still NPO * Continue IV fluids. * Continue to monitor for pain and give pain meds appropriately (2) Small bowel strangulation: Code(s): K56.2 - Volvulus Status: Acute Assessment and Plan: 10/31/23: * Initial abdomen pelvis CT shown large wide necked supraumbilical ventral hernia containing multiple loops of nonobstructed small bowel, mesenteric stranding within the hernia sac likely due to inflammation versus venous congestion * See above fluid care 11/01/23: * No change to current treatment plan * see above (3) Ileus: Code(s): K56.7 - Ileus, unspecified Status: Acute Assessment and Plan: 10/31/23: * KUB today still showing mildly dilated small bowel loops in the left upper abdomen representing ileus or small-bowel obstruction * Continue with NG tube * NG with high output of 2910 mL over the last 24 hours * General surgery following 11/01/23: * No change to current treatment plan (4) Acute kidney injury: Code(s): N17.9 - Acute kidney failure, unspecified Status: Acute Assessment and Plan: 10/31/23: * Likely secondary to strangulated bowel verses 2 loads of contrast versus ATN * Creatinine 2.5, EGFR 27 today * Baseline creatinine 0.9-1.3 * Continue IV fluids * Nephrology following * He was on ibuprofen and this was stopped due to his renal function * Renal ultrasound was unremarkable 11/01/23: * Resolved * Creatinine is 1.3, EGFR 57 * Nephrology has signed off (5) Hypothyroid: Qualifiers: Hypothyroidism type: acquired Qualified Code(s): E03.9 - Hypothyroidism, unspecified Code(s): E03.9 - Hypothyroidism, unspecified Status: Chronic Assessment and Plan: 10/31/23: * Continue Synthroid 11/01/23: * No change to current treatment plan (6) Essential (primary) hypertension: Code(s): I10 - Essential (primary) hypertension Status: Chronic Assessment and Plan: 10/31/23: * Blood pressure ranging 108/53 to 118/61 * Will hold lisinopril and hydrochlorothiazide due to SINAN * Hydralazine 10 mg q.6 hours ordered as needed for systolic greater than 160 11/01/23: * No change to current treatment plan (7) Insomnia: Code(s): G47.00 - Insomnia, unspecified Status: Acute Assessment and Plan: 10/31/23: * Benadryl 25 mg ordered for at night for sleep 11/01/23: * No change to current treatment plan Time Spent With Patient Time with patient: 25 - 35 minutes Subjective Date/time seen: 11/01/23 07:13 Interval history: This is a 58-year-old male presented to the hospital on 10/29/2023 with abdominal pain. Workup in the hospital included abdomen pelvis CT which showed large wide necked supraumbilical ventral
--- NOTE | 2023-11-01 07:13 | PM.IMPN ---
Progress Note: A&P Assessment and Plan (1) Incarcerated ventral hernia: Code(s): K43.6 - Other and unspecified ventral hernia with obstruction, without gangrene Status: Acute Assessment and Plan: 10/31/23: Patient is postop day 3 from an open incarcerated ventral hernia repair without mesh NG tube remains in place with high output noted yesterday 2910 mL Continue NPO and IV fluids General surgery following Lactic acid today 1.2, white blood cell count 8.0 Continue Zosyn Continue cardiac monitoring Continue incentive spirometer 11/01/23: Zosyn completed Continue IS Continue ambulating in the halls NG tube clamped today General surgery following and plans to give suppository Currently still NPO Continue IV fluids. Continue to monitor for pain and give pain meds appropriately (2) Small bowel strangulation: Code(s): K56.2 - Volvulus Status: Acute Assessment and Plan: 10/31/23: Initial abdomen pelvis CT shown large wide necked supraumbilical ventral hernia containing multiple loops of nonobstructed small bowel, mesenteric stranding within the hernia sac likely due to inflammation versus venous congestion See above fluid care 11/01/23: No change to current treatment plan see above (3) Ileus: Code(s): K56.7 - Ileus, unspecified Status: Acute Assessment and Plan: 10/31/23: KUB today still showing mildly dilated small bowel loops in the left upper abdomen representing ileus or small-bowel obstruction Continue with NG tube NG with high output of 2910 mL over the last 24 hours General surgery following 11/01/23: No change to current treatment plan (4) Acute kidney injury: Code(s): N17.9 - Acute kidney failure, unspecified Status: Acute Assessment and Plan: 10/31/23: Likely secondary to strangulated bowel verses 2 loads of contrast versus ATN Creatinine 2.5, EGFR 27 today Baseline creatinine 0.9-1.3 Continue IV fluids Nephrology following He was on ibuprofen and this was stopped due to his renal function Renal ultrasound was unremarkable 11/01/23: Resolved Creatinine is 1.3, EGFR 57 Nephrology has signed off (5) Hypothyroid: Qualifiers: Hypothyroidism type: acquired Qualified Code(s): E03.9 - Hypothyroidism, unspecified Code(s): E03.9 - Hypothyroidism, unspecified Status: Chronic Assessment and Plan: 10/31/23: Continue Synthroid 11/01/23: No change to current treatment plan (6) Essential (primary) hypertension: Code(s): I10 - Essential (primary) hypertension Status: Chronic Assessment and Plan: 10/31/23: Blood pressure ranging 108/53 to 118/61 Will hold lisinopril and hydrochlorothiazide due to SINAN Hydralazine 10 mg q.6 hours ordered as needed for systolic greater than 160 11/01/23: No change to current treatment plan (7) Insomnia: Code(s): G47.00 - Insomnia, unspecified Status: Acute Assessment and Plan: 10/31/23: Benadryl 25 mg ordered for at night for sleep 11/01/23: No change to current treatment plan Time Spent With Patient Time with patient: 25 - 35 minutes Subjective Date/time seen: 11/01/23 07:13 Interval history: This is a 58-year-old male presented to the hospital on 10/29/2023 with abdominal pain. Workup in the hospital included abdomen pelvis CT which showed large wide necked supraumbilical ventral hernia containing multiple loops of nonobstructed small bowel, mesenteric stranding within the hernia sac likely inflammation versus venous congestion, cystic verses urinary bladder wall thickening from outlet compromise. An NG-tube was placed and general surgery was consulted who took patient on 10/28/2023 for an open incarcerated ventral hernia repair without mesh. He continued with the NG tube postop for decompression. Postop CT of the abdomen pelvis on 10/29/2023 shown postoperative changes consistent with hernia re
[2023-11-01 07:35] LABS: Hematocrit 35.7 % (42.0-52.0); Hemoglobin 11.8 g/dL (14.0-18.0); Mean Corpuscular HGB Conc 33.1 g/dl (32-36); Mean Corpuscular Hemoglobin 33.7 pg (26-34); Mean Platelet Volume 9.2 fl (7.4-10.4); Platelet Count Result 198 k/mm3 (150-375); Red Cell Distribution Width 13.8 % (11.5-14.5); White Blood Count 8.1 K/mm3 (4.5-10.0)
[2023-11-01 07:46] LABS: Albumin Level 3.4 g/dL (3.5-5.1); Anion Gap 10 mmol/L (4-12); Blood Urea Nitrogen 35 mg/dL (9-20); Calcium 7.9 mg/dL (8.4-10.2); Carbon Dioxide 22 mmol/L (22-30); Chloride 106 mmol/L (98-107); Estimated CRCL calculation 71 ml/min; Estimated Glomerular Filt Rate 57; Glucose 119 mg/dL (65-110); Phosphorus 2.8 mg/dL (2.5-4.5); Potassium 3.5 mmol/L (3.4-5.0); Sodium 138 mmol/L (137-145)
[2023-11-01] MEDS: PANTOPRAZOLE SODIUM IV 40 MG VIAL IV PUSH (08:42)
[2023-11-01] MEDS: ENOXAPARIN 40 MG/0.4 ML SYRINGE SUB-Q (08:42)
[2023-11-01] MEDS: SODIUM CHLORIDE 0.9% IV 1,000 ML 125 ML IV CONT ×2 (08:50→17:00)
--- NOTE | 2023-11-01 09:24 | PM.PNNEP ---
Progress Note: A&P Assessment and Plan (1) Acute kidney injury: Code(s): N17.9 - Acute kidney failure, unspecified Status: Acute Assessment and Plan: the patient has acute kidney injury. Total CK only 340 Urine electrolytes are pre renal UA was bland Renal ultrasound is unremarkable The patient made only 500cc of urine yesterday Most likely renal failure is due to a combination of pre renal azotemia, 3rd spacing from the surgery, strangulated bowel issue, contrast. Ibuprofen may or may not have played a role but a minor 1 if any Examined labs are better. Creatinine is down to normal He is getting fluids at 150 an hour. He does have some swelling. I cut the rate down to 125. Nephrology will sign off. Notify Dr. Flores and he will handle fluid rates going forward (2) Incarcerated ventral hernia: Code(s): K43.6 - Other and unspecified ventral hernia with obstruction, without gangrene Status: Acute Assessment and Plan: He was taken to surgery night before last. Bowel seemed viable. White count is normal now and he had a BM (3) Essential (primary) hypertension: Code(s): I10 - Essential (primary) hypertension Status: Chronic Assessment and Plan: Blood pressure is under good control. No need for antihypertensives right now (4) Hyperlipidemia: Qualifiers: Hyperlipidemia type: unspecified Qualified Code(s): E78.5 - Hyperlipidemia, unspecified Code(s): E78.5 - Hyperlipidemia, unspecified Status: Acute Assessment and Plan: he is on pravastatin at home (5) Chronic obstructive pulmonary disease: Qualifiers: COPD type: emphysema Emphysema type: unspecified Qualified Code(s): J43.9 - Emphysema, unspecified Code(s): J44.9 - Chronic obstructive pulmonary disease, unspecified Status: Acute Assessment and Plan: he is getting supportive care (6) Tobacco abuse: Code(s): Z72.0 - Tobacco use Status: Acute Assessment and Plan: advised to quit Subjective Date/time seen: 11/01/23 09:24 Interval history: Patrick is feeling better today. He had a small bowel movement. Belly pain is minimal He denies shortness of breath Exam Narrative: WDWN in NAD skin no rash head ncat lungs clear cor reg no rub abd BS+ postop nontender except for wound area and soft ext 1+ presacral bilateral edema. Objective Data Vital Signs Vital Signs: Vital Signs - 24 hr 10/31/23 13:00 10/31/23 13:10 10/31/23 12:00 Temperature 97.9 F Pulse Rate 92 91 97 Respiratory Rate 18 18 18 Blood Pressure 125/59 L Pulse Oximetry 97 Oxygen Delivery 10/31/23 12:00 10/31/23 16:00 10/31/23 16:00 Temperature 97.2 F L Pulse Rate 91 103 H 99 Respiratory Rate 20 Blood Pressure 126/78 Pulse Oximetry 96 Oxygen Delivery 10/31/23 20:32 10/31/23 20:32 10/31/23 20:46 Temperature Pulse Rate 113 H 108 H Respiratory Rate 18 18 Blood Pressure Pulse Oximetry 97 Oxygen Delivery Room Air 10/31/23 20:00 10/31/23 20:00 11/01/23 00:00 Temperature 96.2 F L 96.2 F L Pulse Rate 103 H 97 Respiratory Rate 20 20 Blood Pressure 134/82 122/74 Pulse Oximetry 97 96 Oxygen Delivery Room Air 11/01/23 02:16 11/01/23 02:27 10/31/23 20:00 Temperature Pulse Rate 95 94 107 H Respiratory Rate 18 18 Blood Pressure Pulse Oximetry Oxygen Delivery 11/01/23 00:00 11/01/23 04:00 11/01/23 04:00 Temperature 96.0 F L Pulse Rate 106 H 99 110 H Respiratory Rate 20 Blood Pressure 115/76 Pulse Oximetry 96 Oxygen Delivery 11/01/23 07:05 11/01/23 07:05 11/01/23 07:15 Temperature Pulse Rate 94 94 96 Respiratory Rate 18 18 18 Blood Pressure Pulse Oximetry 96 Oxygen Delivery Room Air 11/01/23 08:00 Temperature Pulse Rate 106 H Respiratory Rate Blood Pressure Pulse Oximetry Oxygen Delivery Intake/Out
--- NOTE | 2023-11-01 11:12 | WPDPN ---
Progress Note: A&P Assessment and Plan (1) Incarcerated ventral hernia: Code(s): K43.6 - Other and unspecified ventral hernia with obstruction, without gangrene Status: Acute Assessment and Plan: Resolved after open incarcerated ventral hernia repair without mesh. Postop day 4. White blood count is normalized. He is still NPO today with nasogastric tube in place but hopefully this can be removed tomorrow. Once that happens we can transition to an oral antibiotic and stop the IV antibiotics. Continue to get up and ambulate in the hallways and walk. Nasogastric tube will be clamped today. Hopefully can have it removed tomorrow. Suppository today to stimulate a bowel movement. Potassium is low today. We will go ahead and give him an IV bolus of potassium. Recheck labs tomorrow. Hopefully can remove NG tube tomorrow advance diet. (2) Acute kidney injury: Code(s): N17.9 - Acute kidney failure, unspecified Status: Acute Assessment and Plan: Creatinine is decreased to 1.[address] Kenney has signed off. Patient kidney function has recovered. Subjective Date/time seen: 11/01/23 11:12 Interval history: Patient is doing better today. We now lateral pain. He is sitting up in a chair. Is able to take walks in the hallway. Did have some flatus but no bowel movement yet. No nausea. Nasogastric tube remains in place. Output is decreasing. Exam GI: Other: Abdomen is soft and obese but very mildly distended. Midline incision healing well. No redness or drainage. Minor ecchymosis around the incision. Objective Data Vital Signs Vital Signs: Vital Signs - 24 hr 10/31/23 13:00 10/31/23 13:10 10/31/23 12:00 Temperature 36.6 C Pulse Rate 92 91 97 Respiratory Rate 18 18 18 Blood Pressure 125/59 L Pulse Oximetry 97 Oxygen Delivery 10/31/23 12:00 10/31/23 16:00 10/31/23 16:00 Temperature 36.2 C L Pulse Rate 91 103 H 99 Respiratory Rate 20 Blood Pressure 126/78 Pulse Oximetry 96 Oxygen Delivery 10/31/23 20:32 10/31/23 20:32 10/31/23 20:46 Temperature Pulse Rate 113 H 108 H Respiratory Rate 18 18 Blood Pressure Pulse Oximetry 97 Oxygen Delivery Room Air 10/31/23 20:00 10/31/23 20:00 11/01/23 00:00 Temperature 35.7 C L 35.7 C L Pulse Rate 103 H 97 Respiratory Rate 20 20 Blood Pressure 134/82 122/74 Pulse Oximetry 97 96 Oxygen Delivery Room Air 11/01/23 02:16 11/01/23 02:27 10/31/23 20:00 Temperature Pulse Rate 95 94 107 H Respiratory Rate 18 18 Blood Pressure Pulse Oximetry Oxygen Delivery 11/01/23 00:00 11/01/23 04:00 11/01/23 04:00 Temperature 35.6 C L Pulse Rate 106 H 99 110 H Respiratory Rate 20 Blood Pressure 115/76 Pulse Oximetry 96 Oxygen Delivery 11/01/23 07:05 11/01/23 07:05 11/01/23 07:15 Temperature Pulse Rate 94 94 96 Respiratory Rate 18 18 18 Blood Pressure Pulse Oximetry 96 Oxygen Delivery Room Air 11/01/23 08:00 11/01/23 10:00 Temperature 36.2 C L Pulse Rate 106 H 99 Respiratory Rate 18 Blood Pressure 139/78 Pulse Oximetry 96 Oxygen Delivery Intake/Output Intake/Output: Intake & Output 10/29/23 10/30/23 10/31/23 11/01/23 23:59 23:59 23:59 23:59 Intake Total 2400 3590 3440 1050 Output Total 1645 3725 1515 Balance 755 -135 1925 1050 Meds/Results Medications: Active Medications Generic Name Dose Route Start Last Admin Trade Name Freq PRN Reason Stop Dose Admin Al Hydrox/Mg Hydrox/Simethicone 30 ml 10/31/23 03:30 11/01/23 05:59 Mag Hydrox/Al Hydrox/Simeth 30 Ml Udc PO Not Given Q8H TANNA Bisacodyl 10 mg 11/01/23 11:09 Bisacodyl 10 Mg Suppository RECTAL 11/01/23 11:10 ONCE ONE Diazepam 5 mg 10/28/23 23:00 11/01/23 01:30 Diazepam Inj (*Crx) 10 Mg/2 Ml Syringe IV PUSH 5 mg Q12H TANNA Administration Diphenhydramine HCl 25 mg 10/31/23 21:00 10/31/23 21:40 Diphenhydramine Hcl In
[2023-11-01] MEDS: BISACODYL 10 MG SUPPOSITORY RECTAL (13:49)
[2023-11-01] MEDS: MAG HYDROX/AL HYDROX/SIMETH 30 ML UDC PO ×2 (13:49→19:01)
[2023-11-01] MEDS: POTASSIUM CHLORIDE INJ 40 MEQ in SODIUM CHLORIDE 0.9% IV 500 ML 130 MEQ IVPB (14:10)
--- NOTE | 2023-11-01 19:10 | PC.NURSE ---
patient refusing removal of NG at this time because he wants more than ice chips/ clear liquids afterwards. would like to wait until morning to remove NG
[2023-11-01] MEDS: FLUTICASONE/UMECLIDIN/VILANTER 100-62.5-25 MCG ELLIPTA 1 PUFF INHALATION (20:19)
[2023-11-01] MEDS: diphenhydrAMINE HCl INJ 50 MG/ML VIAL 25 MG IV PUSH (21:27)
[2023-11-02] VITALS (15 sets, daily range): BP systolic 147–153; BP diastolic 80–85; PULSE 84–107; RESP 20; TEMP 36.1–36.9; O2SAT 95–99
[2023-11-02] MEDS: SODIUM CHLORIDE 0.9% IV 1,000 ML 125 ML IV CONT (02:06)
[2023-11-02] MEDS: PIPERACILLN/TAZ 3.375GM/NS50ML 3.375 GM/50 ML BAG IVPB ×4 (02:10→22:29)
[2023-11-02] MEDS: MAG HYDROX/AL HYDROX/SIMETH 30 ML UDC PO ×3 (04:36→22:28)
[2023-11-02] MEDS: LEVOTHYROXINE SODIUM 100 MCG TABLET PO (04:36)
[2023-11-02] MEDS: HYDROmorphone HCL INJ (*CRX) 1 MG/ML SYR IV PUSH ×4 (04:36→22:48)
[2023-11-02 05:05] LABS: Hematocrit 36.9 % (42.0-52.0); Hemoglobin 11.8 g/dL (14.0-18.0); Mean Corpuscular Hemoglobin 33.1 pg (26-34); Mean Corpuscular Volume 103.4 fl (80-100); Mean Platelet Volume 9.2 fl (7.4-10.4); Platelet Count Result 221 k/mm3 (150-375); Red Blood Count 3.57 M/mm3 (4.6-6.20); White Blood Count 9.7 K/mm3 (4.5-10.0)
[2023-11-02 05:18] LABS: Alanine Aminotransferase 43 U/L (6-50); Albumin Level 3.4 g/dL (3.5-5.1); Alkaline Phosphatase 41 U/L (38-126); Anion Gap 10 mmol/L (4-12); Aspartate Amino Transferase 59 U/L (17-59); Bilirubin,Total 0.7 mg/dL (0.2-1.3); Blood Urea Nitrogen 31 mg/dL (9-20); Carbon Dioxide 23 mmol/L (22-30); Chloride 105 mmol/L (98-107); Estimated CRCL calculation 71 ml/min; Estimated Glomerular Filt Rate 57; Glucose 106 mg/dL (65-110); Potassium 3.6 mmol/L (3.4-5.0); Sodium 138 mmol/L (137-145)
[2023-11-02 05:43] LABS: Hypochromasia 1+; Platelet Estimate Adequate (Adequate)
[2023-11-02 05:44] LABS: Anisocytosis 1+; Band Neutrophils Percent 7 % (0-6); Eosinophils Absolute Manual 0.87 K/mm3 (0.02-0.50); Eosinophils Percent Manual 9 % (0-4); Lymphocytes Absolute Manual 1.74 K/mm3 (1.1-4.5); Lymphocytes Percent Manual 18 % (18-44); Monocytes Absolute Manual 1.45 K/mm3 (0.1-0.90); Monocytes Percent Manual 15 % (3-9); Neutrophils Absolute Manual 5.52 K/mm3 (1.3-6.7); Neutrophils Percent Manual 50 % (46-73); Total Cells Counted 100
[2023-11-02 05:45] LABS: Metamyelocytes Percent 1 %; Schistocytes None Seen
[2023-11-02] MEDS: IPRATROPIUM BR 0.02% INH SOLN 0.5 MG/2.5 ML VIAL INHALATION ×4 (07:38→20:51)
[2023-11-02] MEDS: LEVALBUTEROL NEB 1.25 MG/3 ML INHALATION ×4 (07:38→20:51)
--- NOTE | 2023-11-02 08:57 | PM.PNGS ---
Progress Note: A&P Assessment and Plan (1) Incarcerated ventral hernia: Code(s): K43.6 - Other and unspecified ventral hernia with obstruction, without gangrene Status: Acute Assessment and Plan: Resolved after open incarcerated ventral hernia repair without mesh. Postop day 5 and doing well. Still awaiting return of bowel function. He was able to tolerate the clamping trial but still has high NG output this morning with over 1 liter out from his NG tube after putting it back to suction for an hour. Will try stimulating his bowels again with a dulcolax suppository and start IV Reglan. Continue NG tube, bowel rest, and IV fluids. Will start a clamping routine with the NG tube today, 6 hours on and off suction. May need to consider PPN in the next day or two if unable to remove the NG tube. Encouraged increasing activity and walking in the halls. Potassium 3.6 today after receiving IV KCL yesterday. Will again replace his potassium and repeat labs tomorrow morning. (2) Acute kidney injury: Code(s): N17.9 - Acute kidney failure, unspecified Status: Resolved Assessment and Plan: Resolving. Creatinine still at 1.3 today. Continue IV fluids. Will discuss possible need for Clinimix if NG tube and NPO status continue today. Plan I have discussed the patient's case and plan of care with Dr. Flores. Subjective Subjective Date/Time Seen: 11/02/23 08:57 Patient reports: voiding w/o difficulty, flatus, no bowel movement and afebrile Interval history: Chart reviewed since last seen. His SINAN is resolving. Creatinine at 1.3 today. He has some mild incisional soreness, but his main complaint is back pain from lying in the bed with his head elevated. He has been receiving the IV dilaudid for his back pain. He has had his NG tube clamped overnight. He denies any nausea or bloating while being clamped. He has been taking in lots of ice chips and reports he will get heartburn and start belching after taking in ice chips. He reports very little flatus and he had one very small liquid BM last night, but no formed stool. He has the sensation that he has to have a bowel movement but is nervous about straining due to his incision. I turned his NG tube back to low intermittent suction while in the room and he had about 550 cc out of the NG tube in about 15 minutes. Exam Const: General: comfortable and no acute distress Orientation/consciousness: patient oriented x3 GI: Other: Abdomen is obese and soft, but does not appear distended. Midline incision healing well with mild ecchymosis around incision, there is a small serous blister at the umbilicus. No redness or drainage. NANCY drain with moderate amount of serous drainage in the bulb. Both dressings were changed. Extrem: General: edema bilateral (bilateral 2+ pitting edema) Objective Data Vital Signs Vital Signs: Vital Signs - 24 hr 11/01/23 10:00 11/01/23 12:00 11/01/23 13:00 Temperature 97.1 F L Pulse Rate 99 95 96 Respiratory Rate 18 18 Blood Pressure 139/78 Pulse Oximetry 96 Oxygen Delivery Fraction of Inspired Oxygen 11/01/23 13:10 11/01/23 14:00 11/01/23 16:00 Temperature 99.0 F Pulse Rate 95 100 86 Respiratory Rate 18 18 Blood Pressure 124/81 Pulse Oximetry 97 Oxygen Delivery Fraction of Inspired Oxygen 11/01/23 18:00 11/01/23 19:41 11/01/23 20:21 Temperature 97.2 F L 96.7 F L Pulse Rate 99 100 Respiratory Rate 22 H 20 Blood Pressure 168/82 H 149/77 H Pulse Oximetry 97 98 96 Oxygen Delivery Room Air Fraction of Inspired Oxygen 11/01/23 20:21 11/01/23 20:31 11/01/23 21:30 Temperature Pulse Rate 98 99 Respiratory Rate 20 20 Blood Pressure Pulse Oximetry Oxygen Delivery Room Air Fraction of Inspired Oxygen 11/01/23 20:00 11/02/23 00:00 11/02/23 04:00 Temperature Pulse Rate 98 92 100 Respiratory Rate Blood Pressure Pulse Oximetry Oxygen Delivery Fraction
[2023-11-02] MEDS: BISACODYL 10 MG SUPPOSITORY RECTAL (09:23)
[2023-11-02] MEDS: ENOXAPARIN 40 MG/0.4 ML SYRINGE SUB-Q (09:23)
[2023-11-02] MEDS: PANTOPRAZOLE SODIUM IV 40 MG VIAL IV PUSH (09:23)
--- NOTE | 2023-11-02 09:25 | P.PNIM_ITS ---
Progress Note: A&P Assessment and Plan (1) Incarcerated ventral hernia: Code(s): K43.6 - Other and unspecified ventral hernia with obstruction, without gangrene Status: Acute Assessment and Plan: 10/31/23: * Patient is postop day 3 from an open incarcerated ventral hernia repair without mesh * NG tube remains in place with high output noted yesterday 2910 mL * Continue NPO and IV fluids * General surgery following * Lactic acid today 1.2, white blood cell count 8.0 * Continue Zosyn * Continue cardiac monitoring * Continue incentive spirometer 11/01/23: * Zosyn completed * Continue IS * Continue ambulating in the halls * NG tube clamped today * General surgery following and plans to give suppository * Currently still NPO * Continue IV fluids. * Continue to monitor for pain and give pain meds appropriately 11/02/23: * NGT to LIS today with 500ml output initially * General surgery following and will repeat suppository this morning, if no bowel movement by the afternoon plan is for an enema * May need PPN/TPN in the interim. * Continue IVF for now (2) Small bowel strangulation: Code(s): K56.2 - Volvulus Status: Acute Assessment and Plan: 10/31/23: * Initial abdomen pelvis CT shown large wide necked supraumbilical ventral hernia containing multiple loops of nonobstructed small bowel, mesenteric stranding within the hernia sac likely due to inflammation versus venous congestion * See above fluid care 11/01/23: * No change to current treatment plan * see above (3) Ileus: Code(s): K56.7 - Ileus, unspecified Status: Acute Assessment and Plan: 10/31/23: * KUB today still showing mildly dilated small bowel loops in the left upper abdomen representing ileus or small-bowel obstruction * Continue with NG tube * NG with high output of 2910 mL over the last 24 hours * General surgery following 11/01/23: * No change to current treatment plan (4) Hypothyroid: Qualifiers: Hypothyroidism type: acquired Qualified Code(s): E03.9 - Hypothyroidism, unspecified Code(s): E03.9 - Hypothyroidism, unspecified Status: Chronic Assessment and Plan: 10/31/23: * Continue Synthroid 11/01/23: * No change to current treatment plan (5) Essential (primary) hypertension: Code(s): I10 - Essential (primary) hypertension Status: Chronic Assessment and Plan: 10/31/23: * Blood pressure ranging 108/53 to 118/61 * Will hold lisinopril and hydrochlorothiazide due to SINAN * Hydralazine 10 mg q.6 hours ordered as needed for systolic greater than 160 11/01/23: * No change to current treatment plan (6) Insomnia: Code(s): G47.00 - Insomnia, unspecified Status: Acute Assessment and Plan: 10/31/23: * Benadryl 25 mg ordered for at night for sleep 11/01/23: * No change to current treatment plan Time Spent With Patient Time with patient: 15 - 25 minutes Subjective Date/time seen: 11/02/23 09:25 Interval history: This is a 58-year-old male presented to the hospital on 10/29/2023 with abdominal pain. Workup in the hospital included abdomen pelvis CT which showed large wide necked supraumbilical ventral hernia containing multiple loops of nonobstructed small bowel, mesenteric stranding within the hernia sac likely inflammation versus venous congestion, cystic verses urinary bladder wall thickening from outlet compromise. An NG-tube was placed and general surgery was consulted who took patient on
--- NOTE | 2023-11-02 09:25 | PM.IMPN ---
Progress Note: A&P Assessment and Plan (1) Incarcerated ventral hernia: Code(s): K43.6 - Other and unspecified ventral hernia with obstruction, without gangrene Status: Acute Assessment and Plan: 10/31/23: Patient is postop day 3 from an open incarcerated ventral hernia repair without mesh NG tube remains in place with high output noted yesterday 2910 mL Continue NPO and IV fluids General surgery following Lactic acid today 1.2, white blood cell count 8.0 Continue Zosyn Continue cardiac monitoring Continue incentive spirometer 11/01/23: Zosyn completed Continue IS Continue ambulating in the halls NG tube clamped today General surgery following and plans to give suppository Currently still NPO Continue IV fluids. Continue to monitor for pain and give pain meds appropriately 11/02/23: NGT to LIS today with 500ml output initially General surgery following and will repeat suppository this morning, if no bowel movement by the afternoon plan is for an enema May need PPN/TPN in the interim. Continue IVF for now (2) Small bowel strangulation: Code(s): K56.2 - Volvulus Status: Acute Assessment and Plan: 10/31/23: Initial abdomen pelvis CT shown large wide necked supraumbilical ventral hernia containing multiple loops of nonobstructed small bowel, mesenteric stranding within the hernia sac likely due to inflammation versus venous congestion See above fluid care 11/01/23: No change to current treatment plan see above (3) Ileus: Code(s): K56.7 - Ileus, unspecified Status: Acute Assessment and Plan: 10/31/23: KUB today still showing mildly dilated small bowel loops in the left upper abdomen representing ileus or small-bowel obstruction Continue with NG tube NG with high output of 2910 mL over the last 24 hours General surgery following 11/01/23: No change to current treatment plan (4) Hypothyroid: Qualifiers: Hypothyroidism type: acquired Qualified Code(s): E03.9 - Hypothyroidism, unspecified Code(s): E03.9 - Hypothyroidism, unspecified Status: Chronic Assessment and Plan: 10/31/23: Continue Synthroid 11/01/23: No change to current treatment plan (5) Essential (primary) hypertension: Code(s): I10 - Essential (primary) hypertension Status: Chronic Assessment and Plan: 10/31/23: Blood pressure ranging 108/53 to 118/61 Will hold lisinopril and hydrochlorothiazide due to SINAN Hydralazine 10 mg q.6 hours ordered as needed for systolic greater than 160 11/01/23: No change to current treatment plan (6) Insomnia: Code(s): G47.00 - Insomnia, unspecified Status: Acute Assessment and Plan: 10/31/23: Benadryl 25 mg ordered for at night for sleep 11/01/23: No change to current treatment plan Time Spent With Patient Time with patient: 15 - 25 minutes Subjective Date/time seen: 11/02/23 09:25 Interval history: This is a 58-year-old male presented to the hospital on 10/29/2023 with abdominal pain. Workup in the hospital included abdomen pelvis CT which showed large wide necked supraumbilical ventral hernia containing multiple loops of nonobstructed small bowel, mesenteric stranding within the hernia sac likely inflammation versus venous congestion, cystic verses urinary bladder wall thickening from outlet compromise. An NG-tube was placed and general surgery was consulted who took patient on 10/28/2023 for an open incarcerated ventral hernia repair without mesh. He continued with the NG tube postop for decompression. Postop CT of the abdomen pelvis on 10/29/2023 shown postoperative changes consistent with hernia repair, dynamic ileus involving the small bowel with moderate free fluid in the abdomen and pelvis, bladder wall thickening possibly due to cystitis. He also had a renal ultrasound which was unremarkable. Patient is currently on Zosyn. 10/31/23: KUB today still show
[2023-11-02] MEDS: POTASSIUM CHLORIDE INJ 40 MEQ in SODIUM CHLORIDE 0.9% IV 500 ML 130 MEQ IVPB (10:44)
[2023-11-02] MEDS: diazePAM INJ (*CRX) 10 MG/2 ML SYRINGE 5 MG IV PUSH (12:50)
[2023-11-02] MEDS: METOCLOPRAMIDE HCL INJ 10 MG/2 ML VIAL IV PUSH ×2 (12:57→17:36)
[2023-11-02] MEDS: SODIUM CHLORIDE 0.9% IV 1,000 ML 100 ML IV CONT (18:58)
[2023-11-02] MEDS: FLUTICASONE/UMECLIDIN/VILANTER 100-62.5-25 MCG ELLIPTA 1 PUFF INHALATION (20:27)
[2023-11-02] MEDS: diphenhydrAMINE HCl INJ 50 MG/ML VIAL 25 MG IV PUSH (22:28)
[2023-11-03] VITALS (18 sets, daily range): BP systolic 146–165; BP diastolic 80–88; PULSE 77–108; RESP 18–20; TEMP 35.9–36.6; O2SAT 95–97; BMI 37.3
[2023-11-03] MEDS: METOCLOPRAMIDE HCL INJ 10 MG/2 ML VIAL IV PUSH ×4 (00:27→17:52)
[2023-11-03] MEDS: diazePAM INJ (*CRX) 10 MG/2 ML SYRINGE 5 MG IV PUSH ×3 (00:27→22:09)
[2023-11-03] MEDS: LEVALBUTEROL NEB 1.25 MG/3 ML INHALATION ×4 (02:05→20:33)
[2023-11-03] MEDS: IPRATROPIUM BR 0.02% INH SOLN 0.5 MG/2.5 ML VIAL INHALATION ×4 (02:05→20:33)
[2023-11-03] MEDS: PIPERACILLN/TAZ 3.375GM/NS50ML 3.375 GM/50 ML BAG IVPB (02:35)
[2023-11-03] MEDS: MAG HYDROX/AL HYDROX/SIMETH 30 ML UDC PO (04:55)
[2023-11-03] MEDS: LEVOTHYROXINE SODIUM 100 MCG TABLET PO (04:56)
[2023-11-03 05:24] LABS: Hematocrit 37.8 % (42.0-52.0); Hemoglobin 12.2 g/dL (14.0-18.0); Mean Corpuscular HGB Conc 32.3 g/dl (32-36); Mean Corpuscular Hemoglobin 33.2 pg (26-34); Mean Platelet Volume 9.6 fl (7.4-10.4); Platelet Count Result 247 k/mm3 (150-375); Red Blood Count 3.67 M/mm3 (4.6-6.20); White Blood Count 12.8 K/mm3 (4.5-10.0)
[2023-11-03 05:34] LABS: Anion Gap 12 mmol/L (4-12); Blood Urea Nitrogen 29 mg/dL (9-20); Calcium 8.2 mg/dL (8.4-10.2); Carbon Dioxide 23 mmol/L (22-30); Chloride 106 mmol/L (98-107); Estimated CRCL calculation 76 ml/min; Estimated Glomerular Filt Rate > 60; Glucose 110 mg/dL (65-110); Magnesium 2.8 mg/dL (1.6-2.3); Potassium 3.6 mmol/L (3.4-5.0); Sodium 141 mmol/L (137-145)
[2023-11-03] MEDS: HYDROmorphone HCL INJ (*CRX) 1 MG/ML SYR IV PUSH (05:38)
[2023-11-03 06:37] LABS: Anisocytosis 1+; Band Neutrophils Percent 17 % (0-6); Eosinophils Absolute Manual 0.38 K/mm3 (0.02-0.50); Eosinophils Percent Manual 3 % (0-4); Lymphocytes Absolute Manual 6.52 K/mm3 (1.1-4.5); Macrocytosis 1+ (NORMAL); Monocytes Absolute Manual 2.43 K/mm3 (0.1-0.90); Monocytes Percent Manual 19 % (3-9); Neutrophils Absolute Manual 3.45 K/mm3 (1.3-6.7); Neutrophils Percent Manual 10 % (46-73); Platelet Estimate Adequate (Adequate); Schistocytes None Seen; Total Cells Counted 100
[2023-11-03] MEDS: SODIUM CHLORIDE 0.9% IV 1,000 ML 100 ML IV CONT (09:31)
[2023-11-03] MEDS: ENOXAPARIN 40 MG/0.4 ML SYRINGE SUB-Q (09:31)
[2023-11-03] MEDS: MEROPENEM 1 GM/NS 100 ML 1 GM/100 ML BAG IVPB ×2 (09:31→17:52)
[2023-11-03] MEDS: PANTOPRAZOLE SODIUM IV 40 MG VIAL IV PUSH (09:32)
--- NOTE | 2023-11-03 09:57 | P.PNIM_ITS ---
Progress Note: A&P Assessment and Plan (1) Incarcerated ventral hernia: Code(s): K43.6 - Other and unspecified ventral hernia with obstruction, without gangrene Status: Acute Assessment and Plan: 10/31/23: * Patient is postop day 3 from an open incarcerated ventral hernia repair without mesh * NG tube remains in place with high output noted yesterday 2910 mL * Continue NPO and IV fluids * General surgery following * Lactic acid today 1.2, white blood cell count 8.0 * Continue Zosyn * Continue cardiac monitoring * Continue incentive spirometer 11/01/23: * Zosyn completed * Continue IS * Continue ambulating in the halls * NG tube clamped today * General surgery following and plans to give suppository * Currently still NPO * Continue IV fluids. * Continue to monitor for pain and give pain meds appropriately 11/02/23: * NGT to LIS today with 500ml output initially * General surgery following and will repeat suppository this morning, if no bowel movement by the afternoon plan is for an enema * May need PPN/TPN in the interim. * Continue IVF for now 11/03/23: * NGT to low intermittent suction * Patient reports having 2 bowel movements today however they were small * KUB still showing adynamic ileus * If not able to clamp NG tube today we will start PPN/TPN for tonight * Continue IV fluids for now * General surgery following (2) Small bowel strangulation: Code(s): K56.2 - Volvulus Status: Acute Assessment and Plan: 10/31/23: * Initial abdomen pelvis CT shown large wide necked supraumbilical ventral hernia containing multiple loops of nonobstructed small bowel, mesenteric stranding within the hernia sac likely due to inflammation versus venous congestion * See above fluid care 11/01/23: * No change to current treatment plan * see above (3) Ileus: Code(s): K56.7 - Ileus, unspecified Status: Acute Assessment and Plan: 10/31/23: * KUB today still showing mildly dilated small bowel loops in the left upper abdomen representing ileus or small-bowel obstruction * Continue with NG tube * NG with high output of 2910 mL over the last 24 hours * General surgery following 11/01/23: * No change to current treatment plan (4) Hospital-acquired pneumonia: Code(s): J18.9 - Pneumonia, unspecified organism; Y95 - Nosocomial condition Status: Acute Assessment and Plan: 11/03/23: * White blood cell count 12.8 with left shift and bandemia * Will change Zosyn over to meropenem and start vancomycin * Chest x-ray showing pneumonia * Incentive spirometer at the bedside * Repeat blood cultures * Check MRSA (5) Hypothyroid: Qualifiers: Hypothyroidism type: acquired Qualified Code(s): E03.9 - Hypothyroidism, unspecified Code(s): E03.9 - Hypothyroidism, unspecified Status: Chronic Assessment and Plan: 10/31/23: * Continue Synthroid 11/01/23: * No change to current treatment plan (6) Essential (primary) hypertension: Code(s): I10 - Essential (primary) hypertension Status: Chronic Assessment and Plan: 10/31/23: * Blood pressure ranging 108/53 to 118/61 * Will hold lisinopril and hydrochlorothiazide due to SINAN * Hydralazine 10 mg q.6 hours ordered as needed for systolic greater than 160 11/01/23: * No change to current treatment plan (7) Insomnia: Code(s): G47.00 - Insomnia, unspecified Status: Acute Assessment and Plan: 10/31/23: * Benadryl 25 mg ordered
--- NOTE | 2023-11-03 09:57 | PM.IMPN ---
Progress Note: A&P Assessment and Plan (1) Incarcerated ventral hernia: Code(s): K43.6 - Other and unspecified ventral hernia with obstruction, without gangrene Status: Acute Assessment and Plan: 10/31/23: Patient is postop day 3 from an open incarcerated ventral hernia repair without mesh NG tube remains in place with high output noted yesterday 2910 mL Continue NPO and IV fluids General surgery following Lactic acid today 1.2, white blood cell count 8.0 Continue Zosyn Continue cardiac monitoring Continue incentive spirometer 11/01/23: Zosyn completed Continue IS Continue ambulating in the halls NG tube clamped today General surgery following and plans to give suppository Currently still NPO Continue IV fluids. Continue to monitor for pain and give pain meds appropriately 11/02/23: NGT to LIS today with 500ml output initially General surgery following and will repeat suppository this morning, if no bowel movement by the afternoon plan is for an enema May need PPN/TPN in the interim. Continue IVF for now 11/03/23: NGT to low intermittent suction Patient reports having 2 bowel movements today however they were small KUB still showing adynamic ileus If not able to clamp NG tube today we will start PPN/TPN for tonight Continue IV fluids for now General surgery following (2) Small bowel strangulation: Code(s): K56.2 - Volvulus Status: Acute Assessment and Plan: 10/31/23: Initial abdomen pelvis CT shown large wide necked supraumbilical ventral hernia containing multiple loops of nonobstructed small bowel, mesenteric stranding within the hernia sac likely due to inflammation versus venous congestion See above fluid care 11/01/23: No change to current treatment plan see above (3) Ileus: Code(s): K56.7 - Ileus, unspecified Status: Acute Assessment and Plan: 10/31/23: KUB today still showing mildly dilated small bowel loops in the left upper abdomen representing ileus or small-bowel obstruction Continue with NG tube NG with high output of 2910 mL over the last 24 hours General surgery following 11/01/23: No change to current treatment plan (4) Hospital-acquired pneumonia: Code(s): J18.9 - Pneumonia, unspecified organism; Y95 - Nosocomial condition Status: Acute Assessment and Plan: 11/03/23: White blood cell count 12.8 with left shift and bandemia Will change Zosyn over to meropenem and start vancomycin Chest x-ray showing pneumonia Incentive spirometer at the bedside Repeat blood cultures Check MRSA (5) Hypothyroid: Qualifiers: Hypothyroidism type: acquired Qualified Code(s): E03.9 - Hypothyroidism, unspecified Code(s): E03.9 - Hypothyroidism, unspecified Status: Chronic Assessment and Plan: 10/31/23: Continue Synthroid 11/01/23: No change to current treatment plan (6) Essential (primary) hypertension: Code(s): I10 - Essential (primary) hypertension Status: Chronic Assessment and Plan: 10/31/23: Blood pressure ranging 108/53 to 118/61 Will hold lisinopril and hydrochlorothiazide due to SINAN Hydralazine 10 mg q.6 hours ordered as needed for systolic greater than 160 11/01/23: No change to current treatment plan (7) Insomnia: Code(s): G47.00 - Insomnia, unspecified Status: Acute Assessment and Plan: 10/31/23: Benadryl 25 mg ordered for at night for sleep 11/01/23: No change to current treatment plan Time Spent With Patient Time with patient: 25 - 35 minutes Subjective Date/time seen: 11/03/23 09:57 Interval history: This is a 58-year-old male presented to the hospital on 10/29/2023 with abdominal pain. Workup in the hospital included abdomen pelvis CT which showed large wide necked supraumbilical ventral hernia containing multiple loops of nonobstructed small bowel, mesenteric stranding within the hernia sac likely i
--- NOTE | 2023-11-03 11:11 | PM.PNGS ---
Progress Note: A&P Assessment and Plan (1) Incarcerated ventral hernia: Code(s): K43.6 - Other and unspecified ventral hernia with obstruction, without gangrene Status: Acute Assessment and Plan: Resolved after open incarcerated ventral hernia repair without mesh. Postop day 6 and bowel function is returning. Will remove his NG tube today and start him on a clear liquid diet. He will get Ensure clears with his clear liquid tray. Continue IV Reglan. Will decrease his IV fluids. Potassium still remained 3.6 after 40 meq IV KCL yesterday. Will replace with 40 meq oral KCL this morning and another dose this evening. WBC count went up to 12,800 today. Chest x-ray ordered by Hospitalist and showed possible pneumonia. Hospitalist started IV Meropenem and Vancomycin for hospital-acquired pneumonia. His surgical incision has no signs of infection and appears to be healing well. No signs of an abdominal source for his leukocytosis. Repeat labs again tomorrow morning. (2) Acute kidney injury: Code(s): N17.9 - Acute kidney failure, unspecified Status: Resolved Assessment and Plan: Resolved. Nephrology has signed off. Plan I have discussed the patient's case and plan of care with Dr. Flores. Subjective Subjective Date/Time Seen: 11/03/23 11:11 Post Op day: 6 (Open incarcerated ventral hernia repair without mesh) Patient reports: no new complaints, feels better, voiding w/o difficulty, flatus, bowel movement and afebrile Interval history: Patient is doing well today. He denies any abdominal pain, nausea, or bloating. He tolerated the clamping trial well. He had three small bowel movements and is passing more flatus. WBC count up to 12,000 today with bandemia. He is afebrile. Chest x-ray and KUB this morning ordered by Hospitalist, as well as blood cultures. Patient denies shortness of breath or chest pain. He has been ambulating and tolerating this well. NG tube had over 2.5 liters out in the past 24 hours. There is no oral intake charted and the patient reports taking in ice chips nearly constantly throughout the day and night. Nursing denies charting the ice chip intake. Exam Const: General: comfortable and no acute distress Orientation/consciousness: patient oriented x3 GI: Other: Abdomen is obese and soft, but does not appear distended. Midline incision healing well with ecchymosis around the incision, there is a small serous blister at the umbilicus. No redness or drainage. NANCY drain with serous drainage in the bulb and saturating about 40% of the gauze dressing, surrounding skin around the NANCY drain appears healthy with no erythema. Extrem: General: no calf tenderness and edema bilateral (mild diffuse trace edema of lower extremities, equal bilaterally) Objective Data Vital Signs Vital Signs: Vital Signs - 24 hr 11/02/23 12:00 11/02/23 13:40 11/02/23 13:40 Temperature Pulse Rate 99 92 92 Respiratory Rate 20 20 Blood Pressure Pulse Oximetry 95 Oxygen Delivery Room Air Fraction of Inspired Oxygen 21 11/02/23 13:49 11/02/23 14:00 11/02/23 16:00 Temperature 97.3 F L Pulse Rate 89 93 85 Respiratory Rate 20 20 Blood Pressure 150/80 H Pulse Oximetry 96 Oxygen Delivery Fraction of Inspired Oxygen 11/02/23 19:42 11/02/23 20:27 11/02/23 20:27 Temperature 98.4 F Pulse Rate 91 84 84 Respiratory Rate 20 20 Blood Pressure 153/85 H Pulse Oximetry 99 95 Oxygen Delivery Room Air Fraction of Inspired Oxygen 11/02/23 20:36 11/02/23 20:00 11/03/23 00:00 Temperature Pulse Rate 88 88 80 Respiratory Rate 20 Blood Pressure Pulse Oximetry Oxygen Delivery Fraction of Inspired Oxygen 11/03/23 02:05 11/03/23 02:14 11/03/23 04:00 Temperature Pulse Rate 108 H 91 96 Respiratory Rate 20 20 Blood Pressure Pulse Oximetry Oxygen Delivery Fraction of Inspired Oxygen 11/03/23 05:26 11/03/23 07:55 11/03/23 07:59 T
[2023-11-03] MEDS: POTASSIUM CHLORIDE 20 MEQ PACKET (FOR LIQUID) 40 MEQ PO ×2 (11:22→17:52)
[2023-11-03] MEDS: VANCOMYCIN 1,250 MG/NS 250 ML 1,250 MG/250 ML BAG 166.67 MG IVPB ×2 (11:25→13:09)
[2023-11-03] MEDS: HYDROcodone/acetaminophen (*CRX) 5-325 MG TABLET 1 TAB PO ×2 (15:27→20:28)
[2023-11-03 17:43] LABS: MRSA (PCR) NOT DETECTED (NOT DETECTE)
[2023-11-03] MEDS: diphenhydrAMINE HCl INJ 50 MG/ML VIAL 25 MG IV PUSH (22:08)
[2023-11-04] VITALS (18 sets, daily range): BP systolic 140–149; BP diastolic 78–88; PULSE 81–110; RESP 19–20; TEMP 35.6–36.4; O2SAT 95–98
[2023-11-04] MEDS: MEROPENEM 1 GM/NS 100 ML 1 GM/100 ML BAG IVPB ×3 (00:50→17:05)
[2023-11-04] MEDS: METOCLOPRAMIDE HCL INJ 10 MG/2 ML VIAL IV PUSH ×4 (00:50→17:05)
[2023-11-04] MEDS: LEVALBUTEROL NEB 1.25 MG/3 ML INHALATION ×4 (02:27→20:27)
[2023-11-04] MEDS: IPRATROPIUM BR 0.02% INH SOLN 0.5 MG/2.5 ML VIAL INHALATION ×4 (02:27→20:27)
[2023-11-04] MEDS: HYDROmorphone HCL INJ (*CRX) 1 MG/ML SYR IV PUSH (03:47)
[2023-11-04] MEDS: VANCOMYCIN 1,500 MG/NS 500 ML 1,500 MG/500 ML BAG 250 MG IVPB (03:52)
[2023-11-04 03:55] LABS: Hematocrit 37.1 % (42.0-52.0); Hemoglobin 12.1 g/dL (14.0-18.0); Mean Corpuscular HGB Conc 32.6 g/dl (32-36); Mean Corpuscular Hemoglobin 33.4 pg (26-34); Mean Corpuscular Volume 102.5 fl (80-100); Mean Platelet Volume 9.4 fl (7.4-10.4); Platelet Count Result 251 k/mm3 (150-375); Red Blood Count 3.62 M/mm3 (4.6-6.20); White Blood Count 12.7 K/mm3 (4.5-10.0)
[2023-11-04 04:03] LABS: Anion Gap 12 mmol/L (4-12); Blood Urea Nitrogen 26 mg/dL (9-20); Calcium 8.2 mg/dL (8.4-10.2); Carbon Dioxide 23 mmol/L (22-30); Chloride 103 mmol/L (98-107); Estimated CRCL calculation 83 ml/min; Estimated Glomerular Filt Rate > 60; Glucose 108 mg/dL (65-110); Potassium 3.4 mmol/L (3.4-5.0); Sodium 138 mmol/L (137-145)
[2023-11-04 04:25] LABS: Neutrophils Percent Manual 75 % (46-73); Total Cells Counted 100
[2023-11-04 04:26] LABS: Band Neutrophils Percent 7 % (0-6); Eosinophils Absolute Manual 0.25 K/mm3 (0.02-0.50); Eosinophils Percent Manual 2 % (0-4); Lymphocytes Absolute Manual 1.14 K/mm3 (1.1-4.5); Lymphocytes Percent Manual 9 % (18-44); Monocytes Absolute Manual 0.88 K/mm3 (0.1-0.90); Monocytes Percent Manual 7 % (3-9); Neutrophils Absolute Manual 10.41 K/mm3 (1.3-6.7); Platelet Estimate Adequate (Adequate)
[2023-11-04 04:27] LABS: Schistocytes None Seen
[2023-11-04] MEDS: LEVOTHYROXINE SODIUM 100 MCG TABLET PO (06:14)
[2023-11-04] MEDS: SODIUM CHLORIDE 0.9% IV 1,000 ML 60 ML IV CONT (07:16)
[2023-11-04] MEDS: HYDROcodone/acetaminophen (*CRX) 5-325 MG TABLET 1 TAB PO ×2 (08:50→19:43)
[2023-11-04] MEDS: PANTOPRAZOLE SODIUM IV 40 MG VIAL IV PUSH ×2 (08:51→21:04)
[2023-11-04] MEDS: ENOXAPARIN 40 MG/0.4 ML SYRINGE SUB-Q (08:51)
--- NOTE | 2023-11-04 10:45 | PM.DS ---
DS: Summary Time Spent with Patient Time attestation: Total time spent providing and/or coordinating discharge services: DS: Data Data Completed and Pending Completed studies during hospitalization: Pending at discharge 10/28/23 22:24 Surgical [PTH] Routine Labs on day of discharge: Labs from last 24 hours 11/04/23 11/03/23 03:21 16:26 WBC 12.7 H RBC 3.62 L Hgb 12.1 L Hct 37.1 L MCV 102.5 H MCH 33.4 MCHC 32.6 RDW 14.0 Plt Count 251 MPV 9.4 Immature Gran % (Auto) Not Reportable Neut % (Auto) Not Reportable Lymph % (Auto) Not Reportable [place] % (Auto) Not Reportable Eos % (Auto) Not Reportable Baso % (Auto) Not Reportable Lymph # (Auto) Not Reportable [place] # (Auto) Not Reportable Eos # (Auto) Not Reportable Baso # (Auto) Not Reportable Abs Immat Gran (auto) Not Reportable Absolute Neuts (auto) Not Reportable Absolute Nucleated RBC Not Reportable Total Counted 100 Neutrophils % (Manual) 75 H Band Neutrophils % 7 H Lymphocytes % (Manual) 9 L Monocytes % (Manual) 7 Eosinophils % (Manual) 2 Nucleated RBC % Not Reportable Abs Neuts (Manual) 10.41 H Abs Lymphs (Manual) 1.14 Abs Monocytes (Manual) 0.88 Absolute Eos (Manual) 0.25 Platelet Estimate Adequate Schistocytes None seen Sodium 138 Potassium 3.4 Chloride 103 Carbon Dioxide 23 Anion Gap 12 BUN 26 H Creatinine 1.10 Estim Creat Clear Calc 83 Estimated GFR > 60 Glucose 108 Calcium 8.2 L Nasal MRSA (PCR) Not detected Preliminary micro results at discharge 11/03/23 07:40 Blood Culture - Preliminary Blood 11/03/23 07:29 Blood Culture - Preliminary Blood Discharge Plan Discharge Attending physician on discharge: Avril Blake Consulting providers: Harsh Flores; Antwon Kenney; Janna Samano Discharging Clinician: Janna Samano Anticipated Discharge Date/Time: 11/04/23 10:32 Patient Disposition: Home, Self-Care Activity: may shower and as tolerated Diet: as tolerated Discharge Instructions: Finish all your antibiotics as directed for your pneumonia. Follow up with general surgery within 2 weeks No submerging incision in any body of water including bathtub, hot tub, pools, etc. until cleared by surgery to do so Slowly increase your diet back to your regular diet. Continue walking and staying active No heavy lifting until you see your doctor back and they clear you to do so Monitor for signs and symptoms of infection which include fever, chills, redness, warmth at incision, or any pus or drainage from incision. If you notice any of this contact your general surgery team or come back to the hospital. Patient Instructions: Antibiotic Form, Ventral Hernia Repair (DC), Hospital Acquired Pneumonia (DC) Stand Alone Forms: General Discharge Information, Work/School Release IP Follow-up/Referrals: Renuka Kurtz MD [Primary Care Provider] - Discharge Medications: New hydrocodone-acetaminophen 5-325 mg Tablet 1 tablet PO Q4H PRN (Reason: Pain Rated 4-6) Qty: 40 0RF amoxicillin-pot clavulanate 875-125 mg tablet 1 tablet PO Q12H Qty: 10 0RF azithromycin 500 mg tablet 500 mg PO DAILY 3 Days Qty: 3 0RF Continued aspirin 500 mg Tablet 500 mg PO PRN PRN (Reason: Pain (Scale Score 1-3)) Trelegy Ellipta 100-62.5-25 mcg blister with device 1 inh INHALATION HS pravastatin 10 mg tablet 10 mg PO QHS Qty: 90 3RF clotrimazole-betamethasone 1-0.05 % cream 1 applic TOPICAL BID 28 Days Qty: 45 2RF Rx Instructions: feet lisinopril-hydrochlorothiazide 20-12.5 mg tablet 2 tablet PO DAILY Qty: 180 1RF albuterol sulfate [Ventolin HFA] 90 mcg/actuation HFA aerosol inhaler 2 inh INHALATION Q4H PRN (Reason: shortness of breath or wheezing) Qty: 8.5 5RF levothyroxine 100 mcg tablet 100 mcg PO DAILY Qty: 90 1RF Date of admission: 10/28/23 23:20 Sharif
[2023-11-04] MEDS: diazePAM INJ (*CRX) 10 MG/2 ML SYRINGE 5 MG IV PUSH (12:25)
[2023-11-04] MEDS: POTASSIUM CHLORIDE 20 MEQ PACKET (FOR LIQUID) 40 MEQ PO (12:25)
--- NOTE | 2023-11-04 14:08 | PM.PNGS ---
Progress Note: A&P Assessment and Plan (1) Incarcerated ventral hernia: Code(s): K43.6 - Other and unspecified ventral hernia with obstruction, without gangrene Status: Acute Assessment and Plan: Resolved after open incarcerated ventral hernia repair without mesh. Postop day 7 and bowel function seems to be slowly returning. Patient had an episode of nausea and vomiting this morning. Discussed the case with Dr. Flores and we will advance him to a soft, low fat diet and see how he tolerates this. Encouraged getting up and ambulating in the halls multiple times today. His potassium was still low at 3.4 after replacement yesterday. Will supplement again with oral KCL. WBC count still at 12,700 but he is afebrile and is showing signs of clinical improvement. He is on IV antibiotics for pneumonia. His incisions still has no signs of infection. NANCY drain still with a fair amount of serous fluid coming out, will continue to monitor. He may eventually get discharged home with the NANCY drain depending on output. Once patient is tolerating solid food and is medically stable, then he could potentially be discharged from a surgical standpoint. (2) Acute kidney injury: Code(s): N17.9 - Acute kidney failure, unspecified Status: Resolved Assessment and Plan: Resolved. Nephrology has signed off. Plan I have discussed the patient's case and plan of care with Dr. Flores. Subjective Subjective Date/Time Seen: 11/04/23 14:08 Post Op day: 7 (Open incarcerated ventral hernia repair without mesh) Patient reports: feels better, tolerating liquids well, flatus, bowel movement, nausea and vomiting (x1) Interval history: Patient seen this morning. NG removed yesterday and he reports he is feeling well. He did well with clear liquids last night. This morning, before his clear liquid breakfast, he had some nausea and reports small amount of emesis that was bilious-appearing. He denies any abdominal pain. He is passing lots of flatus and has had about 3-5 small loose bowel movements since yesterday when his NG was removed. Exam Const: General: comfortable and no acute distress Orientation/consciousness: patient oriented x3 GI: GI Palp: Yes Tenderness to palpation present (GI) (mild incisional tenderness), No Guarding due to palpation present (GI) and No Rebound tenderness present Auscultation: Hypoactive bowel sounds present Other: Abdomen obese and soft, mildly distended. Midline incision with ecchymosis and scant amount of serous drainage on his dressing at the bottom of the incision. No erythema, skin edges well approximated. Still a very small serous-appearing blister near the incisions at the umbilicus. LLQ NANCY drain with moderate amount of serous drainage and the NANCY dressing is saturated with serous drainage seeping around the drain, no erythema of the skin around the drain, suture intact and dressing changed. Extrem: General: no calf tenderness (negative rajiv's sign bilaterally) and edema (bilateral mild lower extremity edema, diffuse and nonpitting) Objective Data Vital Signs Vital Signs: Vital Signs - 24 hr 11/03/23 14:12 11/03/23 16:00 11/03/23 20:34 Temperature Pulse Rate 84 93 91 Respiratory Rate 20 20 Blood Pressure Pulse Oximetry Oxygen Delivery 11/03/23 20:35 11/03/23 21:21 11/03/23 20:00 Temperature 96.6 F L Pulse Rate 91 98 105 H Respiratory Rate 20 Blood Pressure 146/80 H Pulse Oximetry 97 96 Oxygen Delivery Room Air 11/03/23 20:18 11/04/23 00:00 11/04/23 02:29 Temperature Pulse Rate 84 83 Respiratory Rate 20 Blood Pressure Pulse Oximetry Oxygen Delivery Room Air 11/04/23 02:35 11/04/23 04:00 11/04/23 06:00 Temperature 96.1 F L Pulse Rate 81 98 105 H Respiratory Rate 20 20 Blood Pressure 149/88 H Pulse Oximetry 98 Oxygen Delivery 11/04/23 07:19 11/04/23 07:19 11/04/23 07:31 Temperature Pulse Rate 95 88 Respiratory Rate 2
--- NOTE | 2023-11-04 14:33 | P.PNIM_ITS ---
Progress Note: A&P Assessment and Plan (1) Incarcerated ventral hernia: Code(s): K43.6 - Other and unspecified ventral hernia with obstruction, without gangrene Status: Acute Assessment and Plan: 10/31/23: * Patient is postop day 3 from an open incarcerated ventral hernia repair without mesh * NG tube remains in place with high output noted yesterday 2910 mL * Continue NPO and IV fluids * General surgery following * Lactic acid today 1.2, white blood cell count 8.0 * Continue Zosyn * Continue cardiac monitoring * Continue incentive spirometer 11/01/23: * Zosyn completed * Continue IS * Continue ambulating in the halls * NG tube clamped today * General surgery following and plans to give suppository * Currently still NPO * Continue IV fluids. * Continue to monitor for pain and give pain meds appropriately 11/02/23: * NGT to LIS today with 500ml output initially * General surgery following and will repeat suppository this morning, if no bowel movement by the afternoon plan is for an enema * May need PPN/TPN in the interim. * Continue IVF for now 11/03/23: * NGT to low intermittent suction * Patient reports having 2 bowel movements today however they were small * KUB still showing adynamic ileus * If not able to clamp NG tube today we will start PPN/TPN for tonight * Continue IV fluids for now * General surgery following 11/04/23: * NGT discontinued * Patient reports passing gas and bowel movement since yesterday * Started on CLD * General surgery following (2) Small bowel strangulation: Code(s): K56.2 - Volvulus Status: Acute Assessment and Plan: 10/31/23: * Initial abdomen pelvis CT shown large wide necked supraumbilical ventral hernia containing multiple loops of nonobstructed small bowel, mesenteric stranding within the hernia sac likely due to inflammation versus venous congestion * See above fluid care 11/01/23: * No change to current treatment plan * see above (3) Ileus: Code(s): K56.7 - Ileus, unspecified Status: Acute Assessment and Plan: 10/31/23: * KUB today still showing mildly dilated small bowel loops in the left upper abdomen representing ileus or small-bowel obstruction * Continue with NG tube * NG with high output of 2910 mL over the last 24 hours * General surgery following 11/01/23: * No change to current treatment plan (4) Hospital-acquired pneumonia: Code(s): J18.9 - Pneumonia, unspecified organism; Y95 - Nosocomial condition Status: Acute Assessment and Plan: 11/03/23: * White blood cell count 12.8 with left shift and bandemia * Will change Zosyn over to meropenem and start vancomycin * Chest x-ray showing pneumonia * Incentive spirometer at the bedside * Repeat blood cultures * Check MRSA 11/04/23: * WBC 12.7 today * Continue Meropenem and Vancomycin * Continue IS (5) Hypothyroid: Qualifiers: Hypothyroidism type: acquired Qualified Code(s): E03.9 - Hypothy roidism, unspecified Code(s): E03.9 - Hypothyroidism, unspecified Status: Chronic Assessment and Plan: 10/31/23: * Continue Synthroid 11/01/23: * No change to current treatment plan (6) Essential (primary) hypertension: Code(s): I10 - Essential (primary) hypertension Status: Chronic Assessment and Plan: 10/31/23: * Blood pressure ranging 108/53 to 118/61 * Will hold lisinopril and hydrochlorothiazide due to SINAN * Hydralazine 10 mg q.6 hours ordered as needed
--- NOTE | 2023-11-04 14:33 | PM.IMPN ---
Progress Note: A&P Assessment and Plan (1) Incarcerated ventral hernia: Code(s): K43.6 - Other and unspecified ventral hernia with obstruction, without gangrene Status: Acute Assessment and Plan: 10/31/23: Patient is postop day 3 from an open incarcerated ventral hernia repair without mesh NG tube remains in place with high output noted yesterday 2910 mL Continue NPO and IV fluids General surgery following Lactic acid today 1.2, white blood cell count 8.0 Continue Zosyn Continue cardiac monitoring Continue incentive spirometer 11/01/23: Zosyn completed Continue IS Continue ambulating in the halls NG tube clamped today General surgery following and plans to give suppository Currently still NPO Continue IV fluids. Continue to monitor for pain and give pain meds appropriately 11/02/23: NGT to LIS today with 500ml output initially General surgery following and will repeat suppository this morning, if no bowel movement by the afternoon plan is for an enema May need PPN/TPN in the interim. Continue IVF for now 11/03/23: NGT to low intermittent suction Patient reports having 2 bowel movements today however they were small KUB still showing adynamic ileus If not able to clamp NG tube today we will start PPN/TPN for tonight Continue IV fluids for now General surgery following 11/04/23: NGT discontinued Patient reports passing gas and bowel movement since yesterday Started on CLD General surgery following (2) Small bowel strangulation: Code(s): K56.2 - Volvulus Status: Acute Assessment and Plan: 10/31/23: Initial abdomen pelvis CT shown large wide necked supraumbilical ventral hernia containing multiple loops of nonobstructed small bowel, mesenteric stranding within the hernia sac likely due to inflammation versus venous congestion See above fluid care 11/01/23: No change to current treatment plan see above (3) Ileus: Code(s): K56.7 - Ileus, unspecified Status: Acute Assessment and Plan: 10/31/23: KUB today still showing mildly dilated small bowel loops in the left upper abdomen representing ileus or small-bowel obstruction Continue with NG tube NG with high output of 2910 mL over the last 24 hours General surgery following 11/01/23: No change to current treatment plan (4) Hospital-acquired pneumonia: Code(s): J18.9 - Pneumonia, unspecified organism; Y95 - Nosocomial condition Status: Acute Assessment and Plan: 11/03/23: White blood cell count 12.8 with left shift and bandemia Will change Zosyn over to meropenem and start vancomycin Chest x-ray showing pneumonia Incentive spirometer at the bedside Repeat blood cultures Check MRSA 11/04/23: WBC 12.7 today Continue Meropenem and Vancomycin Continue IS (5) Hypothyroid: Qualifiers: Hypothyroidism type: acquired Qualified Code(s): E03.9 - Hypothyroidism, unspecified Code(s): E03.9 - Hypothyroidism, unspecified Status: Chronic Assessment and Plan: 10/31/23: Continue Synthroid 11/01/23: No change to current treatment plan (6) Essential (primary) hypertension: Code(s): I10 - Essential (primary) hypertension Status: Chronic Assessment and Plan: 10/31/23: Blood pressure ranging 108/53 to 118/61 Will hold lisinopril and hydrochlorothiazide due to SINAN Hydralazine 10 mg q.6 hours ordered as needed for systolic greater than 160 11/01/23: No change to current treatment plan (7) Insomnia: Code(s): G47.00 - Insomnia, unspecified Status: Acute Assessment and Plan: 10/31/23: Benadryl 25 mg ordered for at night for sleep 11/01/23: No change to current treatment plan Time Spent With Patient Time with patient: 25 - 35 minutes Subjective Date/time seen: 11/04/23 14:33 Interval history: This is a 58-year-old male presented to the hospital on 10/29/2023 with abdominal pain.
[2023-11-04] MEDS: KCL 20 MEQ/SW 100 ML 100 ML 50 MEQ IVPB (17:31)
[2023-11-04] MEDS: KCL 40 MEQ/D5 1/2NS 1,000 ML 70 ML IV CONT (17:32)
[2023-11-04] MEDS: diphenhydrAMINE HCl INJ 50 MG/ML VIAL 25 MG IV PUSH (20:59)
[2023-11-04 21:49] LABS: Vancomycin Trough 8.5 ug/mL (10.0-20.0)
[2023-11-04] MEDS: VANCOMYCIN 1,750 MG/NS 500 ML 1,750 MG/500 ML BAG 250 MG IVPB (22:24)
[2023-11-05] VITALS (14 sets, daily range): BP systolic 134–162; BP diastolic 78–86; PULSE 86–108; RESP 18–22; TEMP 36.1–36.7; O2SAT 96–98
[2023-11-05] MEDS: FLUTICASONE/UMECLIDIN/VILANTER 100-62.5-25 MCG ELLIPTA 1 PUFF INHALATION ×2 (00:01→20:44)
[2023-11-05] MEDS: METOCLOPRAMIDE HCL INJ 10 MG/2 ML VIAL IV PUSH ×3 (00:13→11:44)
[2023-11-05] MEDS: MEROPENEM 1 GM/NS 100 ML 1 GM/100 ML BAG IVPB ×2 (01:01→09:14)
[2023-11-05] MEDS: IPRATROPIUM BR 0.02% INH SOLN 0.5 MG/2.5 ML VIAL INHALATION ×2 (02:14→07:28)
[2023-11-05] MEDS: LEVALBUTEROL NEB 1.25 MG/3 ML INHALATION ×2 (02:14→07:27)
[2023-11-05 05:46] LABS: Hematocrit 33.9 % (42.0-52.0); Hemoglobin 11.4 g/dL (14.0-18.0); Mean Corpuscular HGB Conc 33.6 g/dl (32-36); Mean Corpuscular Hemoglobin 34.1 pg (26-34); Mean Corpuscular Volume 101.5 fl (80-100); Mean Platelet Volume 9.5 fl (7.4-10.4); Platelet Count Result 235 k/mm3 (150-375); Red Blood Count 3.34 M/mm3 (4.6-6.20); Red Cell Distribution Width 13.7 % (11.5-14.5); White Blood Count 12.3 K/mm3 (4.5-10.0)
[2023-11-05 06:00] LABS: Alanine Aminotransferase 158 U/L (6-50); Albumin Level 3.1 g/dL (3.5-5.1); Alkaline Phosphatase 50 U/L (38-126); Anion Gap 10 mmol/L (4-12); Aspartate Amino Transferase 136 U/L (17-59); Bilirubin,Total 0.4 mg/dL (0.2-1.3); Blood Urea Nitrogen 20 mg/dL (9-20); Calcium 7.7 mg/dL (8.4-10.2); Carbon Dioxide 21 mmol/L (22-30); Chloride 102 mmol/L (98-107); Estimated CRCL calculation 91 ml/min; Estimated Glomerular Filt Rate > 60; Glucose 115 mg/dL (65-110); Magnesium 2.4 mg/dL (1.6-2.3); Phosphorus 2.9 mg/dL (2.5-4.5); Potassium 3.5 mmol/L (3.4-5.0); Sodium 133 mmol/L (137-145)
[2023-11-05] MEDS: LEVOTHYROXINE SODIUM 100 MCG TABLET PO (06:25)
[2023-11-05] MEDS: PANTOPRAZOLE SODIUM IV 40 MG VIAL IV PUSH (09:14)
[2023-11-05] MEDS: ENOXAPARIN 40 MG/0.4 ML SYRINGE SUB-Q (09:14)
[2023-11-05] MEDS: HYDROcodone/acetaminophen (*CRX) 5-325 MG TABLET 1 TAB PO ×3 (09:16→22:46)
[2023-11-05] MEDS: AZITHROMYCIN 250 MG TABLET 500 MG PO (10:11)
--- NOTE | 2023-11-05 12:04 | P.PNIM_ITS ---
Progress Note: A&P Assessment and Plan (1) Incarcerated ventral hernia: Code(s): K43.6 - Other and unspecified ventral hernia with obstruction, without gangrene Status: Acute Assessment and Plan: 10/31/23: * Patient is postop day 3 from an open incarcerated ventral hernia repair without mesh * NG tube remains in place with high output noted yesterday 2910 mL * Continue NPO and IV fluids * General surgery following * Lactic acid today 1.2, white blood cell count 8.0 * Continue Zosyn * Continue cardiac monitoring * Continue incentive spirometer 11/01/23: * Zosyn completed * Continue IS * Continue ambulating in the halls * NG tube clamped today * General surgery following and plans to give suppository * Currently still NPO * Continue IV fluids. * Continue to monitor for pain and give pain meds appropriately 11/02/23: * NGT to LIS today with 500ml output initially * General surgery following and will repeat suppository this morning, if no bowel movement by the afternoon plan is for an enema * May need PPN/TPN in the interim. * Continue IVF for now 11/03/23: * NGT to low intermittent suction * Patient reports having 2 bowel movements today however they were small * KUB still showing adynamic ileus * If not able to clamp NG tube today we will start PPN/TPN for tonight * Continue IV fluids for now * General surgery following 11/04/23: * NGT discontinued * Patient reports passing gas and bowel movement since yesterday * Started on CLD * General surgery following 11/05/23: * Denies any nausea and vomiting overnight * Tolerating clear liquid diet will advance to full liquid diet today * General surgery following * Will discontinue IV fluids and switch medications over to oral (2) Small bowel strangulation: Code(s): K56.2 - Volvulus Status: Acute Assessment and Plan: 10/31/23: * Initial abdomen pelvis CT shown large wide necked supraumbilical ventral hernia containing multiple loops of nonobstructed small bowel, mesenteric stranding within the hernia sac likely due to inflammation versus venous congestion * See above fluid care 11/01/23: * No change to current treatment plan * see above (3) Ileus: Code(s): K56.7 - Ileus, unspecified Status: Acute Assessment and Plan: 10/31/23: * KUB today still showing mildly dilated small bowel loops in the left upper abdomen representing ileus or small-bowel obstruction * Continue with NG tube * NG with high output of 2910 mL over the last 24 hours * General surgery following 11/01/23: * No change to current treatment plan (4) Hospital-acquired pneumonia: Code(s): J18.9 - Pneumonia, unspecified organism; Y95 - Nosocomial condition Status: Acute Assessment and Plan: 11/03/23: * White blood cell count 12.8 with left shift and bandemia * Will change Zosyn over to meropenem and start vancomycin * Chest x-ray showing pneumonia * Incentive spirometer at the bedside * Repeat blood cultures * Check MRSA 11/04/23: * WBC 12.7 today * Continue Meropenem and Vancomycin * Continue IS 11/05/23: * White blood cell count down to 12.3 * Change to azithromycin and Augmentin * Continue incentive spirometer (5) Hypothyroid: Qualifiers: Hypothyroidism type: acquired Qualified Code(s): E03.9 - Hypothyroidism, unspecified Code(s): E03.9 - Hypothyroidism, unspecified Status: Chronic Assessment and Plan: 10/31/23: * Continue Synthroid 11/01/23:
--- NOTE | 2023-11-05 12:04 | PM.IMPN ---
Progress Note: A&P Assessment and Plan (1) Incarcerated ventral hernia: Code(s): K43.6 - Other and unspecified ventral hernia with obstruction, without gangrene Status: Acute Assessment and Plan: 10/31/23: Patient is postop day 3 from an open incarcerated ventral hernia repair without mesh NG tube remains in place with high output noted yesterday 2910 mL Continue NPO and IV fluids General surgery following Lactic acid today 1.2, white blood cell count 8.0 Continue Zosyn Continue cardiac monitoring Continue incentive spirometer 11/01/23: Zosyn completed Continue IS Continue ambulating in the halls NG tube clamped today General surgery following and plans to give suppository Currently still NPO Continue IV fluids. Continue to monitor for pain and give pain meds appropriately 11/02/23: NGT to LIS today with 500ml output initially General surgery following and will repeat suppository this morning, if no bowel movement by the afternoon plan is for an enema May need PPN/TPN in the interim. Continue IVF for now 11/03/23: NGT to low intermittent suction Patient reports having 2 bowel movements today however they were small KUB still showing adynamic ileus If not able to clamp NG tube today we will start PPN/TPN for tonight Continue IV fluids for now General surgery following 11/04/23: NGT discontinued Patient reports passing gas and bowel movement since yesterday Started on CLD General surgery following 11/05/23: Denies any nausea and vomiting overnight Tolerating clear liquid diet will advance to full liquid diet today General surgery following Will discontinue IV fluids and switch medications over to oral (2) Small bowel strangulation: Code(s): K56.2 - Volvulus Status: Acute Assessment and Plan: 10/31/23: Initial abdomen pelvis CT shown large wide necked supraumbilical ventral hernia containing multiple loops of nonobstructed small bowel, mesenteric stranding within the hernia sac likely due to inflammation versus venous congestion See above fluid care 11/01/23: No change to current treatment plan see above (3) Ileus: Code(s): K56.7 - Ileus, unspecified Status: Acute Assessment and Plan: 10/31/23: KUB today still showing mildly dilated small bowel loops in the left upper abdomen representing ileus or small-bowel obstruction Continue with NG tube NG with high output of 2910 mL over the last 24 hours General surgery following 11/01/23: No change to current treatment plan (4) Hospital-acquired pneumonia: Code(s): J18.9 - Pneumonia, unspecified organism; Y95 - Nosocomial condition Status: Acute Assessment and Plan: 11/03/23: White blood cell count 12.8 with left shift and bandemia Will change Zosyn over to meropenem and start vancomycin Chest x-ray showing pneumonia Incentive spirometer at the bedside Repeat blood cultures Check MRSA 11/04/23: WBC 12.7 today Continue Meropenem and Vancomycin Continue IS 11/05/23: White blood cell count down to 12.3 Change to azithromycin and Augmentin Continue incentive spirometer (5) Hypothyroid: Qualifiers: Hypothyroidism type: acquired Qualified Code(s): E03.9 - Hypothyroidism, unspecified Code(s): E03.9 - Hypothyroidism, unspecified Status: Chronic Assessment and Plan: 10/31/23: Continue Synthroid 11/01/23: No change to current treatment plan (6) Essential (primary) hypertension: Code(s): I10 - Essential (primary) hypertension Status: Chronic Assessment and Plan: 10/31/23: Blood pressure ranging 108/53 to 118/61 Will hold lisinopril and hydrochlorothiazide due to SINAN Hydralazine 10 mg q.6 hours ordered as needed for systolic greater than 160 11/01/23: No change to current treatment plan (7) Insomnia: Code(s): G47.00 - Insomnia, unspecified Status: Acute Assessment and
--- NOTE | 2023-11-05 13:12 | PM.PNGS ---
Progress Note: A&P Assessment and Plan (1) Incarcerated ventral hernia: Code(s): K43.6 - Other and unspecified ventral hernia with obstruction, without gangrene Status: Acute Assessment and Plan: Resolved after open incarcerated ventral hernia repair without mesh. Postop day 8 and continues to slowly improve. No more bloody bowel movements overnight. His bowel function seems to be returning and he is tolerating clear liquids better. Will start advancing his diet to solids later today. Will stop his IV fluids and stop the IV Reglan. Transition to oral medications. Still having a fair amount of serous output from his NANCY drain, therefore we will likely leave this in place even on discharge. He was transitioned to oral antibiotics for his pneumonia. Will give another dose of IV KCL today as he did not tolerate oral potassium (powder or the pill). If he is able to tolerate solids and continues to improve, then he can likely be discharged home tomorrow from a surgical standpoint. Plan I have discussed the patient's case and plan of care with Dr. Flores. Subjective Subjective Date/Time Seen: 11/05/23 13:12 Post Op day: 8 (Open incarcerated ventral hernia repair without mesh) Patient reports: no new complaints, feels better, tolerating liquids well, voiding w/o difficulty, flatus, bowel movement and afebrile Interval history: Patient feeling better today. No further episodes of bloody bowel movements. He has had frequent bowel movements through the night that were loose. He reports almost hourly moving his bowels, but no bloody or dark stools. His hemoglobin was 11.4 today (from 12.1 yesterday). He denies any abdominal pain, nausea, vomiting, belching, or bloating. He is tolerating clear liquids well. Exam Const: General: comfortable and no acute distress Orientation/consciousness: patient oriented x3 GI: Auscultation: normal bowel sounds Other: Abdomen obese and soft, mildly distended. Midline incision with ecchymosis and scant amount of serous drainage on his dressing at the bottom of the incision. No erythema, skin edges well approximated. Still a very small serous-appearing blister near the incisions at the umbilicus. LLQ NANCY drain with moderate amount of serous drainage in the bulb, and the gauze dressing is saturated with serous drainage seeping around the drain, no erythema of the skin around the drain. Extrem: General: no calf tenderness (negative rajiv's sign bilaterally) and edema (bilateral mild lower extremity edema, diffuse and nonpitting) bilateral (mild diffuse trace edema of lower extremities, equal bilaterally) Objective Data Vital Signs Vital Signs: Vital Signs - 24 hr 11/04/23 13:19 11/04/23 13:26 11/04/23 16:00 Temperature Pulse Rate 97 97 104 H Respiratory Rate 20 20 Blood Pressure Pulse Oximetry Oxygen Delivery Fraction of Inspired Oxygen 11/04/23 14:00 11/04/23 20:30 11/04/23 20:31 Temperature 97.5 F L Pulse Rate 90 107 H Respiratory Rate 19 20 Blood Pressure 140/78 Pulse Oximetry 96 96 Oxygen Delivery Room Air Fraction of Inspired Oxygen 11/04/23 20:51 11/04/23 20:00 11/05/23 00:00 Temperature 96.7 F L Pulse Rate 110 H 104 H 88 Respiratory Rate 20 Blood Pressure 141/88 H Pulse Oximetry 96 Oxygen Delivery Fraction of Inspired Oxygen 11/05/23 02:16 11/04/23 20:14 11/05/23 04:00 Temperature Pulse Rate 95 104 H 87 Respiratory Rate 20 20 Blood Pressure Pulse Oximetry Oxygen Delivery Fraction of Inspired Oxygen 11/05/23 05:23 11/05/23 07:27 11/05/23 07:27 Temperature 96.9 F L Pulse Rate 96 92 Respiratory Rate 20 18 Blood Pressure 139/83 Pulse Oximetry 97 96 Oxygen Delivery Room Air Fraction of Inspired Oxygen 21 11/05/23 07:43 11/05/23 08:00 11/05/23 08:00 Temperature Pulse Rate 90 108 H Respiratory Rate 18 Blood Pressure Pulse Oximetry Oxygen Delivery Room Air Fraction
[2023-11-05] MEDS: POTASSIUM CHLORIDE INJ 40 MEQ in SODIUM CHLORIDE 0.9% IV 500 ML 130 MEQ IVPB (13:37)
[2023-11-05] MEDS: AMOXICILLIN/CLAVULANATE K 875-125 MG TAB 1 TABLET PO ×2 (13:37→20:22)
[2023-11-05] MEDS: HYDROmorphone HCL INJ (*CRX) 1 MG/ML SYR 0.5 MG IV PUSH (13:42)
[2023-11-05] MEDS: ALBUTEROL SULFATE (*SP) AEROSOL 1 PUFF 2 PUFF INHALATION (20:42)
[2023-11-05] MEDS: diphenhydrAMINE HCl CAP 25 MG CAPSULE PO (22:49)
[2023-11-06] VITALS: PULSE 87
--- NOTE | 2023-11-06 01:06 | PC.NURSE ---
On 11/05/23 & 11/06/23, Etelvina Wren RN completing orientation, provided care and completed [facility] documentation on this patient. I have reviewed Etelvina's documentation and agree with the findings.
[2023-11-06] MEDS: ONDANSETRON INJ 4 MG/2 ML VIAL IV PUSH ×2 (02:02→06:52)
[2023-11-06 04:00] VITALS: PULSE 106
[2023-11-06] MEDS: HYDROmorphone HCL INJ (*CRX) 1 MG/ML SYR 0.5 MG IV PUSH (05:23)
[2023-11-06 05:24] VITALS: BP 146/83; PULSE 94; RESP 20; TEMP 36.6; O2SAT 97
[2023-11-06] MEDS: LEVOTHYROXINE SODIUM 100 MCG TABLET PO (05:30)
[2023-11-06 06:45] LABS: Hematocrit 34.4 % (42.0-52.0); Hemoglobin 11.4 g/dL (14.0-18.0); Mean Corpuscular HGB Conc 33.1 g/dl (32-36); Mean Corpuscular Hemoglobin 33.4 pg (26-34); Mean Corpuscular Volume 100.9 fl (80-100); Mean Platelet Volume 9.5 fl (7.4-10.4); Platelet Count Result 246 k/mm3 (150-375); Red Blood Count 3.41 M/mm3 (4.6-6.20); Red Cell Distribution Width 13.4 % (11.5-14.5); White Blood Count 10.6 K/mm3 (4.5-10.0)
[2023-11-06 07:06] LABS: Alanine Aminotransferase 167 U/L (6-50); Albumin Level 3.2 g/dL (3.5-5.1); Alkaline Phosphatase 57 U/L (38-126); Anion Gap 13 mmol/L (4-12); Aspartate Amino Transferase 114 U/L (17-59); Bilirubin,Total 0.5 mg/dL (0.2-1.3); Blood Urea Nitrogen 14 mg/dL (9-20); Calcium 7.6 mg/dL (8.4-10.2); Carbon Dioxide 19 mmol/L (22-30); Chloride 100 mmol/L (98-107); Estimated CRCL calculation 91 ml/min; Estimated Glomerular Filt Rate > 60; Glucose 104 mg/dL (65-110); Magnesium 2.2 mg/dL (1.6-2.3); Potassium 3.5 mmol/L (3.4-5.0); Sodium 132 mmol/L (137-145)
[2023-11-06 07:15] VITALS: PULSE 96; RESP 18; O2SAT 96
[2023-11-06] MEDS: ALBUTEROL SULFATE (*SP) AEROSOL 1 PUFF 2 PUFF INHALATION (07:17)
--- NOTE | 2023-11-06 07:19 | PM.DS ---
DS: Admitting Diagnosis Discharge Date 11/06/23 Admitting Diagnosis Small bowel strangulation Abdominal pain Incarcerated ventral hernia Hypothyroid Hypertension Tobacco abuse DS: Discharge Diagnosis Discharge Diagnosis (1) Incarcerated ventral hernia: Code(s): K43.6 - Other and unspecified ventral hernia with obstruction, without gangrene Status: Acute (2) Small bowel strangulation: Code(s): K56.2 - Volvulus Status: Acute (3) Ileus: Code(s): K56.7 - Ileus, unspecified Status: Acute (4) Hospital-acquired pneumonia: Code(s): J18.9 - Pneumonia, unspecified organism; Y95 - Nosocomial condition Status: Acute (5) Hypothyroid: Qualifiers: Hypothyroidism type: acquired Qualified Code(s): E03.9 - Hypothyroidism, unspecified Code(s): E03.9 - Hypothyroidism, unspecified Status: Chronic (6) Essential (primary) hypertension: Code(s): I10 - Essential (primary) hypertension Status: Chronic (7) Insomnia: Code(s): G47.00 - Insomnia, unspecified Status: Acute DS: Summary Hospital Course Reason for hospitalization: Small bowel strangulation Abdominal pain Incarcerated ventral hernia Hypothyroid Hypertension Tobacco abuse Hospital Course: This is a 58-year-old male presented to the hospital on 10/29/2023 with abdominal pain. Workup in the hospital included abdomen pelvis CT which showed large wide necked supraumbilical ventral hernia containing multiple loops of nonobstructed small bowel, mesenteric stranding within the hernia sac likely inflammation versus venous congestion, cystic verses urinary bladder wall thickening from outlet compromise. An NG-tube was placed and general surgery was consulted who took patient on 10/28/2023 for an open incarcerated ventral hernia repair without mesh. He continued with the NG tube postop for decompression. Postop CT of the abdomen pelvis on 10/29/2023 shown postoperative changes consistent with hernia repair, dynamic ileus involving the small bowel with moderate free fluid in the abdomen and pelvis, bladder wall thickening possibly due to cystitis. He also had a renal ultrasound which was unremarkable. Patient was covered with Zosyn. He had a delayed post op due to ileus and had some difficulty with advancement in his diet. He was given suppositories and an enema with little relief. This persisted until 11/04/23 when NGT was pulled. He continued with a bit of nausea at that point as well with one episode of vomiting. On the night of 11/04/23 he started having multiple bowel movements and then his nausea dissipated. He was advanced on his diet and tolerating that fair. He did report another episode of nausea and vomiting this a.m. Dr. Flores called and is still ok with him going home today, patient will just have to take it slow with food. VSS, he is afebrile, currently on room air. He denies any new complaints today. He is stable for discharge at this time. He will need to follow up with General surgery in 2 weeks. Final diagnosis: Incarcerated ventral hernia repair without mesh, small bowel strangulation Status at Discharge Cognitive/behavioral status at discharge: Alert orient x4 Functional status at discharge: independent ambulation Overall status at discharge: patient is progressing back to baseline Time Spent with Patient Time attestation: Total time spent providing and/or coordinating discharge services: Time spent: Greater than 30 minutes Exam Narrative: General: In no acute distress, well nourished Cardiac: Normal S1 and S2. No murmur, gallops or friction rubs, peripheral pulses intact. Respiratory: Lungs clear to auscultation, no adventitious lung sounds, currently on room air Gastrointestinal: soft, distended, tenderness near midline incision, hypoactive bowel sounds in bilateral lower quadrants. Reports nausea and vomiting x1 today. Skin: Midline incision with jim covered with dressing
--- NOTE | 2023-11-06 07:32 | WPDPN ---
Progress Note: A&P Assessment and Plan (1) Status post repair of ventral hernia: Code(s): Z98.890 - Other specified postprocedural states; Z87.19 - Personal history of other diseases of the digestive system Status: Acute Assessment and Plan: Doing well. Tolerating solid food diet and [place] [address] [place] [id number] yesterday. Now on oral abx for pneumonia as per hospitalist. Will leave NANCY drain in place and have nursing teach drain care. Ok to discharge home today from surgery standpoint. Discharge instructions and Rx for pain meds on chart. Subjective Date/time seen: 11/06/23 07:32 Interval history: Pt doing well. Still having multiple bowel movements, not bloody. Breathing ok. No fever. Exam GI: Other: Abd soft, midline incision intact, sub Q NANCY drain still copious serous drainage. No erythema at incision. Objective Data Vital Signs Vital Signs: Vital Signs - 24 hr 11/05/23 07:43 11/05/23 08:00 11/05/23 08:00 Temperature Pulse Rate 90 108 H Respiratory Rate 18 Blood Pressure Pulse Oximetry Oxygen Delivery Room Air Fraction of Inspired Oxygen 11/05/23 12:00 11/05/23 16:00 11/05/23 14:00 Temperature 36.2 C L Pulse Rate 92 86 100 Respiratory Rate 18 Blood Pressure 134/78 Pulse Oximetry 96 Oxygen Delivery Fraction of Inspired Oxygen 11/05/23 20:27 11/05/23 20:46 11/05/23 20:00 Temperature 36.7 C Pulse Rate 92 100 Respiratory Rate 22 H Blood Pressure 162/84 H Pulse Oximetry 98 97 Oxygen Delivery Room Air Fraction of Inspired Oxygen 21 11/05/23 22:46 11/06/23 00:00 11/06/23 04:00 Temperature Pulse Rate 93 87 106 H Respiratory Rate Blood Pressure 147/86 H Pulse Oximetry Oxygen Delivery Fraction of Inspired Oxygen 11/06/23 05:24 Temperature 36.6 C Pulse Rate 94 Respiratory Rate 20 Blood Pressure 146/83 H Pulse Oximetry 97 Oxygen Delivery Fraction of Inspired Oxygen Intake/Output Intake/Output: Intake & Output 11/03/23 11/04/23 11/05/23 11/06/23 23:59 23:59 23:59 23:59 Intake Total 4570.0 3080 3230 400 Output Total 1215 300 230 70 Balance 3355.0 2780 3000 330 Meds/Results Medications: Active Medications Generic Name Dose Route Start Last Admin Trade Name Freq PRN Reason Stop Dose Admin Acetaminophen 1,000 mg 11/05/23 13:14 Acetaminophen 500 Mg Tablet PO Q6H PRN Mild Pain (1-3) or Fever Hydrocodone Bitart/Acetaminophen 1 tab 11/03/23 15:05 11/05/23 22:46 Hydrocodone/Acetaminophen (*Crx) 5-325 Mg Tablet PO 1 tab Q4H PRN Administration Pain Rated 4-6 Albuterol 2 puff 11/05/23 20:00 11/06/23 07:17 Albuterol Sulfate (*Sp) Aerosol 1 Puff INHALATION 2 puff Q12HRT TANNA Administration Amoxicillin/Clavulanate Potassium 1 tablet 11/05/23 14:00 11/05/23 20:22 Amoxicillin/Clavulanate K 875-125 Mg Tab PO 1 tablet Q12HR TANNA Administration Azithromycin 500 mg 11/05/23 09:30 11/05/23 10:11 Azithromycin 250 Mg Tablet PO 11/09/23 09:01 500 mg DAILY TANNA Administration Diphenhydramine HCl 25 mg 11/05/23 13:21 11/05/23 22:49 Diphenhydramine Hcl Cap 25 Mg Capsule PO 25 mg QHS PRN Administration Insomnia Enoxaparin Sodium 40 mg 10/29/23 09:00 11/05/23 09:14 Enoxaparin 40 Mg/0.4 Ml Syringe SUB-Q 40 mg DAILY ATNNA Administration Fluticasone/Umeclidinium/Vilanterol 1 puff 10/29/23 20:00 11/05/23 20:44 Fluticasone/Umeclidin/Vilanter 100-62.5-25 Mcg Ellipta INHALATION 1 puff DAILY@2000 TANNA Administration Hydralazine HCl 10 mg 10/30/23 08:41 Hydralazine 10 Mg Tablet PO Q6H PRN systolic above 160 Hydromorphone HCl 0.5 mg 11/05/23 13:14 11/06/23 05:23 Hydromorphone Hcl Inj (*Crx) 1 Mg/Ml Syr IV PUSH 0.5 mg Q3H PRN Administration Pain Rated 7-10 Levalbuterol HCl 2 puff 10/29/23 17:40 10/29/23 17:56 Levalbuterol Hfa (*Sp) 1
[2023-11-06] MEDS: AZITHROMYCIN 250 MG TABLET 500 MG PO (08:40)
[2023-11-06] MEDS: ENOXAPARIN 40 MG/0.4 ML SYRINGE SUB-Q (08:41)
[2023-11-06] MEDS: AMOXICILLIN/CLAVULANATE K 875-125 MG TAB 1 TABLET PO (08:41)
[2023-11-06] MEDS: PANTOPRAZOLE 40 MG TABLET PO (08:41)
--- NOTE | 2023-11-06 09:55 | WPDPN ---
Progress Note: A&P Assessment and Plan (1) Status post repair of ventral hernia: Code(s): Z98.890 - Other specified postprocedural states; Z87.19 - Personal history of other diseases of the digestive system Status: Acute Assessment and Plan: Patient is tolerating liquids well and was told to keep his solid food diet to smaller portions. I then can be discharged home today and instructed to drink Ensure shakes and advanced to solid food as tolerated. We will leave the NANCY drain in place for now. He will follow in the office next week to have the NANCY drain removed and probably have the jim removed as well. We will send him home with some [place] for pain and Zofran for any nausea. Oral antibiotics for his pneumonia as per the hospitalist service. Patient should call the office to make an appointment to be seen next week. Subjective Date/time seen: 11/06/23 09:55 Interval history: Patient has some nausea today. Did have a little bit emesis of bilious fluid. Still having bowel movements. Walking around the hallways well without assistance. Minimal abdominal pain. He is on a solid food diet. Exam GI: Other: Abdomen is soft and nondistended. The incision is healing well with jim in place. Nose no redness or drainage. Subcutaneous NANCY drain still has copious amounts of [place] serous appearing fluid. Objective Data Vital Signs Vital Signs: Vital Signs - 24 hr 11/05/23 12:00 11/05/23 16:00 11/05/23 14:00 Temperature 36.2 C L Pulse Rate 92 86 100 Respiratory Rate 18 Blood Pressure 134/78 Pulse Oximetry 96 Oxygen Delivery Fraction of Inspired Oxygen 11/05/23 20:27 11/05/23 20:46 11/05/23 20:00 Temperature 36.7 C Pulse Rate 92 100 Respiratory Rate 22 H Blood Pressure 162/84 H Pulse Oximetry 98 97 Oxygen Delivery Room Air Fraction of Inspired Oxygen 21 11/05/23 22:46 11/06/23 00:00 11/06/23 04:00 Temperature Pulse Rate 93 87 106 H Respiratory Rate Blood Pressure 147/86 H Pulse Oximetry Oxygen Delivery Fraction of Inspired Oxygen 11/06/23 05:24 11/06/23 07:15 11/06/23 07:15 Temperature 36.6 C Pulse Rate 94 96 96 Respiratory Rate 20 18 18 Blood Pressure 146/83 H Pulse Oximetry 97 96 Oxygen Delivery Room Air Fraction of Inspired Oxygen Intake/Output Intake/Output: Intake & Output 11/03/23 11/04/23 11/05/23 11/06/23 23:59 23:59 23:59 23:59 Intake Total 4570.0 3080 3230 400 Output Total 1215 300 230 70 Balance 3355.0 2780 3000 330 Meds/Results Medications: Active Medications Generic Name Dose Route Start Last Admin Trade Name Freq PRN Reason Stop Dose Admin Acetaminophen 1,000 mg 11/05/23 13:14 Acetaminophen 500 Mg Tablet PO Q6H PRN Mild Pain (1-3) or Fever Hydrocodone Bitart/Acetaminophen 1 tab 11/03/23 15:05 11/05/23 22:46 Hydrocodone/Acetaminophen (*Crx) 5-325 Mg Tablet PO 1 tab Q4H PRN Administration Pain Rated 4-6 Albuterol 2 puff 11/05/23 20:00 11/06/23 07:17 Albuterol Sulfate (*Sp) Aerosol 1 Puff INHALATION 2 puff Q12HRT TANNA Administration Amoxicillin/Clavulanate Potassium 1 tablet 11/05/23 14:00 11/06/23 08:41 Amoxicillin/Clavulanate K 875-125 Mg Tab PO 1 tablet Q12HR TANNA Administration Azithromycin 500 mg 11/05/23 09:30 11/06/23 08:40 Azithromycin 250 Mg Tablet PO 11/09/23 09:01 500 mg DAILY TANNA Administration Diphenhydramine HCl 25 mg 11/05/23 13:21 11/05/23 22:49 Diphenhydramine Hcl Cap 25 Mg Capsule PO 25 mg QHS PRN Administration Insomnia Enoxaparin Sodium 40 mg 10/29/23 09:00 11/06/23 08:41 Enoxaparin 40 Mg/0.4 Ml Syringe SUB-Q 40 mg DAILY TANNA Administration Fluticasone/Umeclidinium/Vilanterol 1 puff 10/29/23 20:00 11/05/23 20:44 Fluticasone/Umeclidin/Vilanter 100-62.5-25 Mcg Ellipta INHALATION 1 puff DAILY@2000 TANNA Administration Hydralazine HCl 10 mg 10/30/23 08:41 H
== END 2023-11-06 10:55 | disposition home or self-care (01) | DRG 329 ==
LOC: ANHED 18:01 → ANHSURGERY 20:19 → ANH2MED 10-29 00:25
PROVIDERS: Emergency Medicine; Family Medicine; Internal Medicine Nephrology; Nurse Practitioner Family; Surgery; Admitting Provider General Practice; Emergency Provider Student in an Organized Health Care Education/Training Program; PCP Family Medicine; Visit Provider Nurse Practitioner Acute Care
PROC: 0WQF0ZZ Repair Abdominal Wall, Open Approach (ICD-10-PCS; principal; 2023-10-28 21:00)
DX: K43.6 Other and unspecified ventral hernia with obstruction, without gangrene (principal); J18.9 Pneumonia, unspecified organism; K56.2 Volvulus; K56.7 Ileus, unspecified; K91.71 Accidental puncture and laceration of a digestive system organ or structure during a digestive system procedure; N17.9 Acute kidney failure, unspecified; K91.89 Other postprocedural complications and disorders of digestive system; K92.1 Melena; Y83.8 Other surgical procedures as the cause of abnormal reaction of the patient, or of later complication, without mention of misadventure at the time of the procedure; J44.9 Chronic obstructive pulmonary disease, unspecified; I10 Essential (primary) hypertension; E03.9 Hypothyroidism, unspecified; E55.9 Vitamin D deficiency, unspecified; E66.9 Obesity, unspecified; Z68.37 Body mass index [BMI] 37.0-37.9, adult; F17.210 Nicotine dependence, cigarettes, uncomplicated; E78.5 Hyperlipidemia, unspecified; G47.00 Insomnia, unspecified
CPT/HCPCS: 36415; 71045; 74018; 74177; 76775; 80048; 80053; 80069; 80202; 81001; 82550; 82570; 82948; 83605; 83690; 83735; 84100; 84156; 84300; 84540; 85025; 85027; 87040; 87641; 88302; 93005; 94640; 96361; 96365; 96372; 96375; 96376; 99285; A9270; J1170; J1200; J1630; J1650; J1741; J1885; J2185; J2250; J2270; J2310; J2405; J2470; J2543; J2765; J3010; J3360; J3370; J3480; J7030; J7040; J7120; J7121; Q9967

== ENCOUNTER 2023-12-03 10:02 | Outpatient (CLI) | payer OTHER, SELFPAY ==
--- NOTE | ~2023-12-03 | XR_ITS ---
EXAMINATION: XR small bowel follow through DATE: 12/03/2023 12:26 INDICATION: Small bowel stricture TECHNIQUE: [employer] Superintendent radiograph(s) of the abdomen was/were obtained. Oral contrast was administered, and sequential radiographs of the abdomen were obtained until oral contrast was noted to be in the proxi mal colon. Spot fluoroscopic images of the small bowel were obtained. A total of 175 fluoroscopic rachel ges and 7 overhead radiographs were obtained. Fluoroscopy exposure time was 2.6 minutes. Total DAP wa s 78.754 Gycm^2. COMPARISON: CT dated 10/29/2023 and 10/28/2023 FINDINGS: Transit time from the stomach to proximal colon was approximately 90 minutes. There is normal caliber and mucosal fold pattern throughout the proximal to mid small bowel. There are several segments of m ild to moderate severity stricture along a few loops of distal small bowel in the right lower quadran t. No dilated loops of bowel to suggest obstruction. Contrast fills the appendix. IMPRESSION: 1. Multiple segments of mild to moderate severity strictures along the distal ileum in the right lowe r quadrant without secondary obstruction. Reviewed, dictated and finalized at location A. IMPRESSION: 1. Multiple segments of mild to moderate severity strictures along the distal i leum in the right lower quadrant without secondary obstruction.
== END 2023-12-03 10:03 | disposition home or self-care (01) ==
PROVIDERS: PCP Family Medicine; Visit Provider Surgery
DX: K56.699 Other intestinal obstruction unspecified as to partial versus complete obstruction (principal)
CPT/HCPCS: 74250

== ENCOUNTER 2023-12-10 08:34 | Outpatient (CLI) | payer OTHER, SELFPAY ==
[2023-12-10 09:04] LABS: Basophils Absolute Auto 0.1 K/mm3 (0.0-0.1); Basophils Percent Auto 0.6 % (0.2-1.2); Eosinophils Absolute Auto 0.5 K/mm3 (0-0.3); Eosinophils Percent Auto 4.3 % (0-4.4); Hematocrit 35.2 % (42.0-52.0); Hemoglobin 11.7 g/dL (14.0-18.0); Immature Granulocyte Absolute 0.15 K/mm3 (0.00-0.031); Immature Granulocyte Percent A 1.4 % (0-0.5); Lymphocytes Absolute Auto 1.69 K/mm3 (0.9-3.2); Lymphocytes Percent Auto 15.8 % (18.3-44.2); Mean Corpuscular HGB Conc 33.2 g/dl (32-36); Mean Corpuscular Hemoglobin 31.4 pg (26-34); Mean Corpuscular Volume 94.4 fl (80-100); Mean Platelet Volume 8.5 fl (7.4-10.4); Monocytes Absolute Auto 0.9 K/mm3 (0.1-0.6); Monocytes Percent Auto 8.4 % (2.6-8.5); Neutrophils Absolute Auto 7.4 K/mm3 (1.3-6.7); Neutrophils Percent Auto 69.5 % (45.5-73.1); Platelet Count Result 331 k/mm3 (150-375); Red Blood Count 3.73 M/mm3 (4.6-6.20); White Blood Count 10.7 K/mm3 (4.5-10.0)
[2023-12-10 09:19] LABS: Alanine Aminotransferase 102 U/L (6-50); Albumin Level 4.1 g/dL (3.5-5.1); Alkaline Phosphatase 73 U/L (38-126); Anion Gap 14 mmol/L (4-12); Aspartate Amino Transferase 64 U/L (17-59); Bilirubin,Total 0.4 mg/dL (0.2-1.3); Blood Urea Nitrogen 10 mg/dL (9-20); Calcium 8.9 mg/dL (8.4-10.2); Carbon Dioxide 23 mmol/L (22-30); Chloride 96 mmol/L (98-107); Estimated Glomerular Filt Rate > 60; Glucose 128 mg/dL (65-110); Potassium 3.7 mmol/L (3.4-5.0); Sodium 133 mmol/L (137-145)
[2023-12-10 09:26] LABS: Prealbumin 22.1 mg/dL (17.6-36.0)
== END 2023-12-10 08:35 | disposition home or self-care (01) ==
PROVIDERS: PCP Family Medicine; Visit Provider Surgery
DX: K56.699 Other intestinal obstruction unspecified as to partial versus complete obstruction (principal)
CPT/HCPCS: 36415; 80053; 84134; 85025

== ENCOUNTER 2024-01-06 01:29 | Inpatient (IN) | payer OTHER, SELFPAY ==
[2024-01-06] VITALS (23 sets, daily range): BP systolic 117–167; BP diastolic 59–100; PULSE 88–136; RESP 15–20; TEMP 36.6–37.9; O2SAT 92–100; BMI 33.3
--- NOTE | ~2024-01-06 | US_ITS ---
EXAMINATION: US renal BI DATE: 01/09/2024 19:22 INDICATION: SINAN TECHNIQUE: Multiple grayscale and Doppler ultrasound images of the kidneys were obtained. COMPARISON: CT abdomen pelvis 01/06/2024. FINDINGS: The right kidney measures 11.0 x 5.5 x 5.8 cm. The left kidney measures 11.6 x 6.0 x 5.3 cm. The kidn eys demonstrate normal parenchymal echogenicity. There is no hydronephrosis. The bladder is empty and therefore incompletely evaluated. IMPRESSION: Unremarkable renal sonogram findings. Reviewed, dictated and finalized at location K.
--- NOTE | ~2024-01-06 | CT_ITS ---
CT of the Abdomen and Pelvis: Indication: Abdominal pain Technique: 2.5 mm axial scans were obtained through the abdomen and pelvis following intravenous adm inistration of 100 cc of Omnipaque 350. Dose reduction technique was used on this scan by utilizing a utomated exposure control and iterative reconstruction technique. The dose-length product (DLP) was 1 273.45 mGy-cm. COMPARISON: 10/29/2023 Findings: Scans through the lung bases are unremarkable. The liver, spleen, pancreas, gallbladder, adrenals and kidneys are within normal limits. There are at herosclerotic calcifications of the aorta. No lymphadenopathy. There are multiple dilated small bowel loops, with transition point in the anterior mid abdomen (axia l images 74-77), with distal small bowel and large bowel decompressed. There is inflammatory change a t multiple distended small bowel loops, with possible areas of mild wall thickening. There is small t o moderate pneumoperitoneum. There is a 3.7 x 1.4 cm peripherally enhancing fluid collection anterior subcutaneous soft tissues superior to the umbilicus (axial image 101 for example). Images through the pelvis were performed. Urinary bladder unremarkable. Prostate gland and seminal ve sicles are unremarkable. Small amount of pelvic ascites present. Impression: [id number] pneumoperitoneum is suspicious for bowel perforation in the absence of appropriate recent surgical/procedural history. Correlate clinically. Small bowel obstruction, transition point as detailed above. Extensive inflammatory changes involving distended small bowel loops, with inflammatory change the me sentery and areas of mild wall thickening. Infectious/inflammatory enteritis is a consideration, thou gh of note, the terminal/distal ileum appear essentially unaffected. Small seroma versus abscess in the anterior subcutaneous soft tissues superior to the umbilicus. Case discussed with Dr. Germain at the time of this reading. Reviewed, dictated and finalized at location M. Impression: [id number] pneumoperitoneum is suspicious for bowel perforation in the a bsence of appropriate recent surgical/procedural history. Correlate clinically. Small bowel obstruction, transition point as detailed above. Extensive inflammatory changes involving distended small bowel loops, with infl ammatory change the mesentery and areas of mild wall thickening. Infectious/inf lammatory enteritis is a consideration, though of note, the terminal/distal ile um appear essentially unaffected. Small seroma versus abscess in the anterior subcutaneous soft tissues superior to the umbilicus. Case discussed with Dr. Germain at the time of this reading.
--- NOTE | 2024-01-06 01:53 | ED.GENADULT ---
HPI - General Adult General Chief complaint: Abdominal Pain Stated complaint: LLQ PAIN S/P RECENT ABD SURGERY Time Seen by Provider: 01/06/24 01:40 History of Present Illness HPI narrative: Patient 58-year-old gentleman presents emergency department chief complaint of abdominal pain. Patient reports that he had an incarcerated hernia the patient reports that he started having discomfort in his left lower quadrant reports that the pain is not improved by anything and reports that he has not passed gas since this afternoon. Related Data Home Medications Medication Instructions Recorded Confirmed fluticasone fur. 100 mcg-umeclid 1 inh inhalation HS 10/29/23 12/29/23 62.5 mcg-vilant 25 mcg inhalat.powder (Trelegy Ellipta) Allergies Allergy/AdvReac Type Severity Reaction Status Date / Time terbinafine Allergy Mild Hives Verified 12/29/23 08:46 Review of Systems Review of Systems: A 10 system review of systems was completed on the patient and is negative except for what is stated in the HPI. Nursing and ancillary documentation was reviewed. FOR[facility]LY [facility] Past Medical History Medical History Abnormal EKG Acute kidney injury (~10/2023) Chronic obstructive pulmonary disease Chronic shortness of breath Essential (primary) hypertension Hypothyroid Incarcerated ventral hernia (~10/2023) Small bowel strangulation (~10/2023) Syncopal episodes Tinea pedis Vitamin D deficiency Surgical History Surgical History History of ventral hernia repair 10/28/2023 - Open incarcerated ventral hernia repair without mesh. (defect = 7 cm) by Dr. Harsh Flores Family History Family History Father Heart disease Mother Thyroid disease Mother Family history of thyroid disease Father Family history of coronary artery disease Hypertension Social History Social History Social History: Patient is . Lives with his in [place]. Patient works for [employer] Smoking packs per day: 1 Smoking cigarettes per day: 20.0 Years smoked: 40 Smoking pack-years: 40.00 Smoking status: Current every day smoker Tobacco type: cigarettes Second hand tobacco smoke exposure: No Alcohol intake: current Drinks per week: 4 Alcohol use details: social drinker Substance use: never Substance use type: does not use Do You Feel Safe in your Home?: Yes Lack of Transportation: No Lack of Food: Never True Current Housing: I Have Housing Concerned About Future Housing: No Difficulty Paying Gas/Electric Bills: No Difficulty Paying for Meds: YES Currently Unemployed: No Education: High School Diploma/GED Difficulty w/ Childcare or Family Care: No Living arrangements: with family Occupation/Education: occupation Gender identity (if verbalized by the patient): Male Sexual Orientation (if Verbalized by the Patient): Straight or Heterosexual Spiritual care concerns: No Agree to blood products: Yes Exam Narrative: GENERAL: Well-appearing, well-nourished, and in no acute distress. HEAD: Normocephalic, atraumatic. EYES: PERRLA and EOMI. ENT: Nares clear, no rhinorrhea or epistaxis. Mucous membranes moist. NECK: Supple. CHEST: Clear to auscultation. No respiratory distress. HEART: Regular rate and rhythm. No murmur heard. Normal peripheral pulses. ABDOMEN: Soft, tenderness to palpation left lower quadrant, nondistended, normal active bowel sounds. EXTREMITIES: Normal range of motion. No edema. SKIN: Warm, dry, no rash. NEURO: No focal deficits. Alert and oriented x3. PSYCH: Normal mood and affect. Course Vital Signs Vital signs: Vital Signs Temperature 36.6 C 01/06/24 01:30 Pulse Rate 98 01/06/24 01:30 Respiratory Rate 20 01/06/24 01:30 Blood Pressure 138/88 01/06/24 01:30 Pulse Oximetry 95 01/06/24 01:30 Oxygen Delivery Room Air 01/06/24 01:30 Temperature 36.6 C 01/06/24 01:30 Pulse Rate 103 H 01/06/24 02:37 Respiratory Rate 17 01/06/24 02:37 Blood Pressure 118/83 01/06/24 02:37 Pulse Oximetry 97 01/06/24 02:37 Oxygen Delivery Room Air 01/06/24 01:30 Medical Decision Making MDM Narrative Medical decision making narrative: Differential diagnosis includes bowel obstruction, bowel perforation Cyst laboratory studies were obtained the patient white count of 16.9 lactate was slightly elevated at 2.8 Patient received IV fluids pain medications and CT scan was obtained that showed evidence of Xvjgn-we-glrzdetn pneumoperitoneum is suspicious for bowel perforation in the absence of appropriate recent surgical/procedural history. Correlate clinically. Small bowel obstruction, transition point as detailed above. Extensive inflammatory changes involving distended small bowel loops, with inflammatory change the mesentery and areas of mild wall thickening. Infectious/inflammatory enteritis is a consideration, though of note, the terminal/distal ileum appear essentially unaffected. Small seroma versus abscess in the anterior subcutaneous soft tissues superior to the umbilicus. The patient is a patient of Dr. Flores the case was discussed with Dr. Courtney was on-call the patient is accepted to the surgical service patient started on Zosyn received IV fluids in the emergency department Vital Signs Vital Signs: Vital Signs Temperature 36.6 C 01/06/24 01:30 Pulse Rate 98 01/06/24 01:30 Respiratory Rate 20 01/06/24 01:30 Blood Pressure 138/88 01/06/24 01:30 Pulse Oximetry 95 01/06/24 01:30 Oxygen Delivery Room Air 01/06/24 01:30 Temperature 36.6 C 01/06/24 01:30 Pulse Rate 103 H 01/06/24 02:37 Respiratory Rate 17 01/06/24 02:37 Blood Pressure 118/83 01/06/24 02:37 Pulse Oximetry 97 01/06/24 02:37 Oxygen Delivery Room Air 01/06/24 01:30 Lab Data 01/06/24 03:05 01/06/24 03:05 Labs: Lab Results 01/06/24 01/06/24 Range/Units 02:57 03:05 WBC 16.9 H (4.5-10.0) K/mm3 RBC 4.32 L (4.6-6.20) M/mm3 Hgb 13.8 L (14.0-18.0) g/dL Hct 40.6 L (42.0-52.0) % MCV 94.0 (80-100) fl MCH 31.9 (26-34) pg MCHC 34.0 (32-36) g/dl RDW 13.6 (11.5-14.5) % Plt Count 289 (150-375) k/mm3 MPV 8.6 (7.4-10.4) fl Immature Gran % (Auto) Not Reportable Neut % (Auto) Not Reportable Lymph % (Auto) Not Reportable Wallace % (Auto) Not Reportable Eos % (Auto) Not Reportable Baso % (Auto) Not Reportable Lymph # (Auto) Not Reportable Wallace # (Auto) Not Reportable Eos # (Auto) Not Reportable Baso # (Auto) Not Reportable Abs Immat Gran (auto) Not Reportable Absolute Neuts (auto) Not Reportable Absolute Nucleated RBC Not Reportable Total Counted 100 Neutrophils % (Manual) 85 H (46-73) % Band Neutrophils % 8 H (0-6) % Lymphocytes % (Manual) 3 L (18-44) % Monocytes % (Manual) 4 (3-9) % Nucleated RBC % Not Reportable Abs Neuts (Manual) 15.71 H (1.3-6.7) K/mm3 Abs Lymphs (Manual) 0.50 L (1.1-4.5) K/mm3 Abs Monocytes (Manual) 0.67 (0.1-0.90) K/mm3 Platelet Estimate Adequate (Adequate) Schistocytes None seen Sodium 134 L (137-145) mmol/L Potassium 3.9 (3.4-5.0) mmol/L Chloride 98 (98-107) mmol/L Carbon Dioxide 26 (22-30) mmol/L Anion Gap 10 (4-12) mmol/L BUN 13 (9-20) mg/dL Creatinine 1.00 (0.7-1.3) mg/dL Estim Creat Clear Calc 84 ml/min Estimated GFR > 60 (59 - ) Glucose 149 H (65-110) mg/dL Lactic Acid 2.8 H (0.7-2.0) mmol/L Calcium 9.8 (8.4-10.2) mg/dL Total Bilirubin 0.7 (0.2-1.3) mg/dL AST 56 (17-59) U/L ALT 59 H (6-50) U/L Alkaline Phosphatase 94 (38-126) U/L Total Protein 8.0 (6.3-8.2) g/dL Albumin 4.5 (3.5-5.1) g/dL Lipase 67 (23-300) U/L Discharge Plan Discharge Clinical Impression: Bowel perforation, Small bowel obstruction Patient Disposition: Still a Patient Condition: Stable Instructions: Antibiotic Form Prescriptions: No Action Trelegy Ellipta 100-62.5-25 mcg blister with device 1 inh INHALATION HS pantoprazole 40 mg Tablet,Delayed Release (Dr/Ec) 40 mg PO QAM Qty: 30 0RF pravastatin 10 mg tablet 10 mg PO QHS Qty: 90 3RF clotrimazole-betamethasone 1-0.05 % cream 1 applic TOPICAL BID 28 Days Qty: 45 2RF Rx Instructions: feet lisinopril-hydrochlorothiazide 20-12.5 mg tablet 2 tablet PO DAILY Qty: 180 1RF albuterol sulfate [Ventolin HFA] 90 mcg/actuation HFA aerosol inhaler 2 inh INHALATION Q4H PRN (Reason: shortness of breath or wheezing) Qty: 8.5 5RF levothyroxine 100 mcg tablet 100 mcg PO DAILY Qty: 90 1RF Follow-up/Referrals: Renuka Kurtz MD [Primary Care Provider] - Time of Disposition: 06:40
[2024-01-06] MEDS: SODIUM CHLORIDE 0.9% IV 1,000 ML 999 ML IV CONT (01:56)
[2024-01-06] MEDS: ONDANSETRON INJ 4 MG/2 ML VIAL IV PUSH (01:56)
[2024-01-06] MEDS: HYDROmorphone HCL INJ (*CRX) 1 MG/ML SYR IV PUSH ×5 (01:57→20:56)
[2024-01-06 03:11] LABS: Hematocrit 40.6 % (42.0-52.0); Hemoglobin 13.8 g/dL (14.0-18.0); Mean Corpuscular Hemoglobin 31.9 pg (26-34); Mean Platelet Volume 8.6 fl (7.4-10.4); Platelet Count Result 289 k/mm3 (150-375); Red Blood Count 4.32 M/mm3 (4.6-6.20); Red Cell Distribution Width 13.6 % (11.5-14.5); White Blood Count 16.9 K/mm3 (4.5-10.0)
[2024-01-06 03:16] LABS: Total Cells Counted 100
[2024-01-06 03:17] LABS: Lymphocytes Percent Manual 3 % (18-44); Monocytes Absolute Manual 0.67 K/mm3 (0.1-0.90); Monocytes Percent Manual 4 % (3-9)
[2024-01-06 03:18] LABS: Band Neutrophils Percent 8 % (0-6); Neutrophils Absolute Manual 15.71 K/mm3 (1.3-6.7); Neutrophils Percent Manual 85 % (46-73); Platelet Estimate Adequate (Adequate); Schistocytes None Seen
[2024-01-06 03:35] LABS: Alanine Aminotransferase 59 U/L (6-50); Albumin Level 4.5 g/dL (3.5-5.1); Alkaline Phosphatase 94 U/L (38-126); Anion Gap 10 mmol/L (4-12); Aspartate Amino Transferase 56 U/L (17-59); Bilirubin,Total 0.7 mg/dL (0.2-1.3); Blood Urea Nitrogen 13 mg/dL (9-20); Calcium 9.8 mg/dL (8.4-10.2); Carbon Dioxide 26 mmol/L (22-30); Chloride 98 mmol/L (98-107); Estimated CRCL calculation 84 ml/min; Estimated Glomerular Filt Rate > 60; Glucose 149 mg/dL (65-110); Lipase 67 U/L (23-300); Potassium 3.9 mmol/L (3.4-5.0); Sodium 134 mmol/L (137-145)
[2024-01-06 03:36] LABS: Lactic Acid Reflex 2.8 mmol/L (0.7-2.0)
[2024-01-06 06:08] LABS: Reflex Lactic Acid Yes or No Add Lactic
[2024-01-06 06:51] LABS: Lactic Acid 3.5 mmol/L (0.7-2.0)
--- NOTE | 2024-01-06 07:04 | PC.NURSE ---
This Rn attempted to insert NG tube in pt. When inserting pt started freaking out stating to remove it. Pt states theres just no way I refuse . Dr. Germain notified.
--- NOTE | 2024-01-06 07:22 | PC.NURSE ---
Patient refuses NG again at this time to this RN. LUCILLE Germain notified. Patient is attempting to urinate for UA at this time. Patient states he is unsure if he will be able to provide a sample. Attempted to call report at this time to 3rd med surg, Unit is in the middle of shift change at this time.
[2024-01-06] MEDS: PIPERACILLN/TAZ 3.375GM/NS50ML 3.375 GM/50 ML BAG IVPB ×4 (08:03→23:00)
[2024-01-06] MEDS: SODIUM CHLORIDE 0.9% IV 1,000 ML 125 ML IV CONT (08:03)
--- NOTE | 2024-01-06 08:06 | ADMGEN ---
This patient, Patrick House, was admitted to [address] [facility] Surg Room 316-01. Patient/family oriented to hospital policies and general routines including ID bracelet, bed and alarms, visiting hours, pain management, procedures, bathroom and other care routines, personal items, smoking policy, room service/diet, and visiting hours. Information on how to activate the Rapid Response Team has been discussed. Patient/Family are encouraged to report perceived risks to care and to ask questions if they do not understand what they are told or what they should do. Report from BOGDAN in er. Pt arrived at 0750.
--- NOTE | 2024-01-06 09:05 | ECG_ITS ---
Test Date: 2024-01-06 09:26:38 Measurements Intervals [place] Rate: 131 P: 16 NC: 132 QRS: 0 QRSD: 86 T: 9 QT: 312 QTc: 461 Interpretive Statements SINUS TACHYCARDIA NONSPECIFIC ST & T-WAVE ABNORMALITY ABNORMAL ECG Electronically Signed On 01-06-2024 14:02:27 CDT by Salvador Watson M.D.
--- NOTE | 2024-01-06 09:09 | P.HP_ITS ---
H&P: HPI History of Present Illness Date/Time: 01/06/24 09:09 Chief Complaint: Abdominal pain Narrative: This is a 58-year-old man who is known to our service who underwent open incarcerated ventral hernia repair without mesh on 10/28/[address] Flores for an incarcerated ventral hernia causing a small bowel obstruction. He has been followed as an outpatient during his recovery. Surgically he was healing well, although he has had intermittent RLQ pain and intermittent episodes of nausea and vomiting since surgery. He had outpatient workup and found to have mild to moderate small bowel strictures in the distal ileum which was previously ischemic during the time of surgery. There was no high-grade obstruction and he chose to monitor his symptoms and defer operative management at that time. The patient reports he was doing well the past week. He has been taking dulcolax twice daily and would take milk of magnesia as needed if he was constipated. Typically, his RLQ pain and nausea would improved after his bowels would move with the laxatives. No recent nausea, vomiting, or diarrhea over the past week leading up to this acute episode. He reports last night, he was lying in bed and had a sudden onset of right shoulder pain and LLQ abdominal pain. His abdominal pain was different than what he had been experiencing since surgery and was sharp and severe. No alleviating factors. He had associated bloating and his reports his abdomen began to look distended. He felt full and thought he needed to vomit, but was not able to do so. Due to the severe pain, he came into the ED for evaluation. In the ED, he was afebrile and vital signs were stable. Labs showed a WBC count of 16,900, hemoglobin 13.8, hematocrit 40.6, and lactic acid 2.8. Other labs were unremarkable. CT scan of the abdomen and pelvis showed small-moderate pneumoperitoneum suspicious for bowel perforation, small bowel obstruction with transition point in the anterior mid abdomen, and distal small bowel and large bowel decompressed. Extensive inflammatory changes involving distended small bowel loops with inflammatory change the mesentery and areas of mild wall thickening, infectious/inflammatory enteritis is a consideration although the distal ileum appears essentially unaffected. Mall seroma vs abscess in the anterior subcutaneous soft tissues superior to the umbilicus. Our service was contacted by the ED provider and he was admitted to our service for surgical evaluation. Repeat lactic acid at 6 am was up to 3.5. Since admission, his heart rate is up into the 130's. He is seen on the medical floor. He is still c omplaining of severe abdominal pain that is now more generalized. He feels more bloated and distended. No flatus. His last BM was yesterday morning around 11:00 am. Review of Systems Review of Systems: All systems reviewed & are unremarkable except as noted in HPI and below PMFSH Past Medical History Medical History Abnormal EKG Acute kidney injury (~10/2023) Chronic obstructive pulmonary disease Chronic shortness of breath Essential (primary) hypertension Hypothyroid Incarcerated ventral hernia (~10/2023) Small bowel strangulation (~10/2023) Syncopal episodes Tinea pedis Vitamin D deficiency Surgical History Surgical History History of ventral hernia repair 10/28/2023 - Open incarcerated ventral hernia repair without mesh. (defect = 7 cm) by Dr. Harsh Flores Family History Family History Father Heart disease Mother Thyroid disease Mother Family history of thyroid disease Father Family history of coronary artery disease Hypertension Social History Social History Social History: Patient is . Lives with his in [place]. Patient works for [employer]. Smoking packs per day: 1 Smoking cigarettes per day: 20.0 Years smoked: 40 Smoking pack-years: 40.00 Smoking status: Current every day smoker Second hand tobacco smoke exposure: No Alcohol intake: current Drinks per week: 4 Alcohol use details: social drinker Substance use: never Substance use type: does not use Do You Feel Safe in your Home?: Yes Lack of Transportation: No Lack of Food: Never True Current Housing: I Have Housing Concerned About Future Housing: No Difficulty Paying Gas/Electric Bills: No Difficulty Paying for Meds: YES Currently Unemployed: No Education: High School Diploma/GED Difficulty w/ Childcare or Family Care: No Living arrangements: with family Occupation/Education: occupation Gender identity (if verbalized by the patient): Male Sexual Orientation (if Verbalized by the Patient): Straight or Heterosexual Spiritual care concerns: No Agree to blood products: Yes Meds Home Medications and Allergies Home Medications Medication Instructions Recorded Confirmed Type pravastatin 10 mg tablet 10 mg PO QHS #90 tabs 05/22/23 01/06/24 Rx clotrimazole-betamethasone 1 1 applic topical BID 4 weeks #45 09/21/23 01/06/24 Rx %-0.05 % topical cream grams lisinopril 20 2 tablet PO DAILY #180 tabs 10/06/23 01/06/24 Rx mg-hydrochlorothiazide 12.5 mg tablet albuterol sulfate 90 mcg/actuation 2 inh inhalation Q4H PRN shortness 10/07/23 01/06/24 Rx aerosol inhaler (Ventolin HFA) of breath or wheezing #8.5 grams levothyroxine 100 mcg tablet 100 mcg PO DAILY #90 tabs 10/12/23 01/06/24 Rx fluticasone fur. 100 mcg-umeclid 1 inh inhalation HS 10/29/23 01/06/24 History 62.5 mcg-vilant 25 mcg inhalat.powder (Trelegy Ellipta) Allergies Allergy/AdvReac Type Severity Reaction Status Date / Time terbinafine Allergy Mild Hives Verified 12/29/23 08:46 Vital Signs Vital Signs - 24 hr 01/06/24 01:30 01/06/24 02:37 01/06/24 06:46 Temperature 97.9 F Pulse Rate 98 103 H 128 H Respiratory Rate 20 17 15 Blood Pressure 138/88 118/83 133/88 Pulse Oximetry 95 97 97 Oxygen Delivery Room Air 01/06/24 07:27 Temperature Pulse Rate 131 H Respiratory Rate 18 Blood Pressure 135/68 Pulse Oximetry 100 Oxygen Delivery Exam Const: General: no acute distress and uncomfortable Nutritional Appearance: overweight Orientation/consciousness: patient oriented x3 HENMT: Head: normocephalic and atraumatic Ears: hearing grossly normal bilaterally Mouth: Yes moist mucous membranes Eyes: General: appearance normal, both eyes and all related structures Pupils: Equal, round and reactive pupils present Neck: Neck: normal visual inspection and full ROM Resp: Effort & Inspection: no respiratory distress and not tachypneic Auscultation: wheezes expiratory wheezes and throughout Cardio: Rate: tachycardic Rhythm: regular rhythm Peripheral pulses: Peripheral pulses 2+ throughout GI: Inspection: distended and scar (midline scar from open hernia repair, well healed, no erythema of the skin) GI Palp: Yes Firmness to palpation present (GI), Yes Tenderness to palpation present (GI), Yes Guarding due to palpation present (GI), Yes Rebound tenderness present and Yes Other GI palpation findings present (diffuse peritoneal signs) Auscultation: Hypoactive bowel sounds present Skin: General skin exam: normal color Neuro: General: moves all extremities and no focal motor deficits Speech: normal speech Motor exam (neuro): 5/5 motor strength present throughout Extrem: General: normal to inspection and no edema Psych: Mental Status: mental status grossly normal Attitude: cooperative Insight: Good insight present (Psych) Judgement: Good judgement present (Psych) H&P: Results Labs Labs: Short CBC 01/06/24 Range/Units 03:05 WBC 16.9 H (4.5-10.0) K/mm3 Hgb 13.8 L (14.0-18.0) g/dL Hct 40.6 L (42.0-52.0) % Plt Count 289 (150-375) k/mm3 BMP 01/06/24 03:05 Sodium 134 L Potassium 3.9 Chloride 98 Carbon Dioxide 26 BUN 13 Creatinine 1.00 Glucose 149 H Calcium 9.8 Liver Function 01/06/24 Range/Units 03:05 Total Bilirubin 0.7 (0.2-1.3) mg/dL AST 56 (17-59) U/L ALT 59 H (6-50) U/L Alkaline Phosphatase 94 (38-126) U/L Albumin 4.5 (3.5-5.1) g/dL Imaging CT scan - abdomen: Radiologist's impression: ITS Impressions Abdomen/Pelvis CT 01/06/24 06:14 Impression: Tqtyo-[id number]-fzzeoijt pneumoperitoneum is suspicious for bowel perforation in the absence of appropriate recent surgical/procedural history. Correlate clinically. Small bowel obstruction, transition point as detailed above. Extensive inflammatory changes involving distended small bowel loops, with inflammatory change the mesentery and areas of mild wall thickening. Infectio us/inflammatory enteritis is a consideration, though of note, the terminal/distal ileum appear essentially unaffected. Small seroma versus abscess in the anterior subcutaneous soft tissues superior to the umbilicus. Case discussed with Dr. Germain at the time of this reading. Assessment and Plan Assessment and plan (1) Pneumoperitoneum: Code(s): K66.8 - Other specified disorders of peritoneum Status: Acute Assessment and Plan: The patient had an open incarcerated ventral hernia repair 2.[address] Flores. This was a primary repair and he was found to have ischemic bowel during surgery that appeared viable after being reduced. Since surgery he has had some intermittent complaints of RLQ pain, nausea, and vomiting. Outpatient workup showed mild strictures of the distal ileum which was previously ischemic. No evidence of a high-grade bowel obstruction as an outpatient. He has presented now with an acute onset of abdominal pain. CT reviewed and shows evidence of a small bowel obstruction and moderate amount of pneumoperitoneum, concerning for bowel perforation. He was initially stable in the ED, but has become tachycardic since admission and his lactic acid is trending up. He has an acute surgical abdomen on exam. His case was immediately discussed with Dr. Flores, who recommends proceeding emergently with an exploratory laparotomy, possible bowel resection. Dr. Flores has added him onto the schedule today. Description of the procedure, risks, benefits, alternatives, and expected recovery/outcomes were discussed with the patient and his in detail. We also discussed the possibility of requiring a bowel resection. The patient understands and all questions were answered. He agrees to proceed with surgery. I have ordered additional pre-operative labs, stat EKG, type and screen, and will obtain consent. (2) Small bowel obstruction: Code(s): K56.609 - Unspecified intestinal obstruction, unspecified as to partial versus complete obstruction Status: Acute Assessment and Plan: CT shows evidence of small bowel obstruction as mentioned above. NG tube placement was attempted x 1 in the ER. Will have nursing attempt NG placement again now. Keep him NPO with IV fluids. See plan above. (3) Sepsis: Code(s): A41.9 - Sepsis, unspecified organism Status: Acute Assessment and Plan: Secondary to bowel perforation. Patient is now tachycardic with leukocytosis and lactic acidosis. Blood pressures have been stable. He is being taken urgently to the OR as mentioned above for source control. Continue IV antibiotics and fluid resuscitation. He is currently on IV Zosyn, and I will add IV Flagyl. Blood cultures pending. (4) Small bowel stricture: Code(s): K56.699 - Other intestinal obstruction unspecified as to partial versus complete obstruction Status: Acute (5) Status post repair of ventral hernia: Code(s): Z98.890 - Other specified postprocedural states; Z87.19 - Personal history of other diseases of the digestive system Status: Acute Assessment and Plan: October 2023 patient had primary repair of an incarcerated ventral hernia. (6) Tobacco abuse: Code(s): Z72.0 - Tobacco use Status: Acute Assessment and Plan: Encouraged cessation. Can consider nicotine patch after surgery if needed. (7) Essential (primary) hypertension: Code(s): I10 - Essential (primary) hypertension Status: Chronic Assessment and Plan: Hold medications while NPO. (8) Hypothyroid: Qualifiers: Hypothyroidism type: acquired Qualified Code(s): E03.9 - Hypothyroidism, unspecified Code(s): E03.9 - Hypothyroidism, unspecified Status: Chronic Assessment and Plan: Hold medication while NPO. (9) Chronic obstructive pulmonary disease: Qualifiers: COPD type: emphysema Emphysema type: unspecified Qualified Code(s): J43.9 - Emphysema, unspecified Code(s): J44.9 - Chronic obstructive pulmonary disease, unspecified Status: Acute (10) Hyperlipidemia: Qualifiers: Hyperlipidemia type: unspecified Qualified Code(s): E78.5 - Hy perlipidemia, unspecified Code(s): E78.5 - Hyperlipidemia, unspecified Status: Acute Assessment and Plan: Hold medications while NPO. Plan I have discussed the patient's case and plan of care with Dr. Flores.
[2024-01-06 09:36] LABS: INR 1.2; Partial Thromboplastin Time 28.6 Seconds (22.3-36.8)
--- NOTE | 2024-01-06 09:50 | PC.NURSE ---
To OR per [ ], IV [ ]. Report given to [Carola ].
[2024-01-06] MEDS: metroNIDAZOLE 500 MG/ISO 100ML 500 MG/100 ML BAG 100 MG IVPB ×2 (10:00→16:57)
[2024-01-06] MEDS: LACTATED RINGERS 1,000 ML 30 ML IV CONT ×2 (10:00→14:50)
--- NOTE | 2024-01-06 10:39 | WPDANESEPPF ---
Anes - Initial Pre Proc Eval Procedure: Operation Date: 01/06/24 10:45 Proposed Procedures p Exploratory Laparotomy for Bowel Resection - Harsh Flores MD Date/Time: 01/06/24 10:39 Surgeon: Jailene Galindo MD Pre Op Diagnosis: small bowel obstruction,bowel perforation Patient Data Age: 58 Gender: M Height: 1.75 m Weight: 102.3 kg Last Vital Signs Temp 37.9 C H 01/06/24 09:45 Pulse 136 H 01/06/24 09:45 Resp 20 01/06/24 09:45 BP 123/84 01/06/24 09:45 Pulse Ox 95 01/06/24 09:45 O2 Del Method Room Air 01/06/24 01:30 Allergies Allergy/AdvReac Type Severity Reaction Status Date / Time terbinafine Allergy Mild Hives Verified 01/06/24 10:06 Home Medications Medication Instructions Recorded Confirmed Type pravastatin 10 mg tablet 10 mg PO QHS #90 tabs 05/22/23 01/06/24 Rx clotrimazole-betamethasone 1 1 applic topical BID 4 weeks #45 09/21/23 01/06/24 Rx %-0.05 % topical cream grams lisinopril 20 2 tablet PO DAILY #180 tabs 10/06/23 01/06/24 Rx mg-hydrochlorothiazide 12.5 mg tablet albuterol sulfate 90 mcg/actuation 2 inh inhalation Q4H PRN shortness 10/07/23 01/06/24 Rx aerosol inhaler (Ventolin HFA) of breath or wheezing #8.5 grams levothyroxine 100 mcg tablet 100 mcg PO DAILY #90 tabs 10/12/23 01/06/24 Rx fluticasone fur. 100 mcg-umeclid 1 inh inhalation HS 10/29/23 01/06/24 History 62.5 mcg-vilant 25 mcg inhalat.powder (Trelegy Ellipta) Laboratory Tests 01/06/24 01/06/24 01/06/24 02:57 03:05 06:36 WBC 16.9 H K/mm3 (4.5-10.0) RBC 4.32 L M/mm3 (4.6-6.20) Hgb 13.8 L g/dL (14.0-18.0) Hct 40.6 L % (42.0-52.0) MCV 94.0 fl (80-100) MCH 31.9 pg (26-34) MCHC 34.0 g/dl (32-36) RDW 13.6 % (11.5-14.5) Plt Count 289 k/mm3 (150-375) MPV 8.6 fl (7.4-10.4) Immature Gran % (Auto) Not Reportable Neut % (Auto) Not Reportable Lymph % (Auto) Not Reportable [place] % (Auto) Not Reportable Eos % (Auto) Not Reportable Baso % (Auto) Not Reportable Lymph # (Auto) Not Reportable [place] # (Auto) Not Reportable Eos # (Auto) Not Reportable Baso # (Auto) Not Reportable Abs Immat Gran (auto) Not Reportable Absolute Neuts (auto) Not Reportable Absolute Nucleated RBC Not Reportable Total Counted 100 Neutrophils % (Manual) 85 H % (46-73) Band Neutrophils % 8 H % (0-6) Lymphocytes % (Manual) 3 L % (18-44) Monocytes % (Manual) 4 % (3-9) Nucleated RBC % Not Reportable Abs Neuts (Manual) 15.71 H K/mm3 (1.3-6.7) Abs Lymphs (Manual) 0.50 L K/mm3 (1.1-4.5) Abs Monocytes (Manual) 0.67 K/mm3 (0.1-0.90) Platelet Estimate Adequate (Adequate) Schistocytes None seen PT INR APTT Sodium 134 L mmol/L (137-145) Potassium 3.9 mmol/L (3.4-5.0) Chloride 98 mmol/L (98-107) Carbon Dioxide 26 mmol/L (22-30) Anion Gap 10 mmol/L (4-12) BUN 13 mg/dL (9-20) Creatinine 1.00 mg/dL (0.7-1.3) Estim Creat Clear Calc 84 ml/min Estimated GFR > 60 (59 - ) Glucose 149 H mg/dL (65-110) Lactic Acid 2.8 H mmol/L 3.5 H mmol/L (0.7-2.0) (0.7-2.0) Calcium 9.8 mg/dL (8.4-10.2) Total Bilirubin 0.7 mg/dL (0.2-1.3) AST 56 U/L (17-59) ALT 59 H U/L (6-50) Alkaline Phosphatase 94 U/L (38-126) Total Protein 8.0 g/dL (6.3-8.2) Albumin 4.5 g/dL (3.5-5.1) Lipase 67 U/L (23-300) Blood Type Antibody Screen 01/06/24 01/06/24 09:12 09:17 WBC RBC Hgb Hct MCV MCH MCHC RDW Plt Count MPV Immature Gran % (Auto) Neut % (Auto) Lymph % (Auto) [place] % (Auto) Eos % (Auto) Baso % (Auto) Lymph # (Auto) [place] # (Auto) Eos # (Auto) Baso # (Auto) Abs Immat Gran (auto) Absolute Neuts (auto) Absolute Nucleated RBC Total Counted Neutrophils % (Manual) Band Neutrophils % Lymphocytes % (Manual) Monocytes % (Manual) Nucleated RBC % Abs Neuts (Manual) Abs Lymphs (Manual) Abs Monocytes (Manual) Platelet Estimate Schistocytes PT 15.0 H Seconds (11.1-14.7) INR 1.2 APTT 28.6 Seconds (22.3-36.8) Sodium Potassium Chloride Carbon Dioxide Anion Gap BUN Creatinine Estim Creat Clear Calc Estimated GFR Glucose Lactic Acid 4.0 H mmol/L (0.7-2.0) Calcium Total Bilirubin AST ALT Alkaline Phosphatase Total Protein Albumin Lipase Blood Type O Positive Antibody Screen Negative Patient hx anesthesia problems: none Family hx anesthesia problems: none Results Review: All pre-operative results and documents have been reviewed as part of the pre-operative evaluation. [facility]LY [facility] Past Medical History Medical History Abnormal EKG Acute kidney injury (~10/2023) Chronic obstructive pulmonary disease Chronic shortness of breath Essential (primary) hypertension Hypothyroid Incarcerated ventral hernia (~10/2023) Small bowel strangulation (~10/2023) Syncopal episodes Tinea pedis Vitamin D deficiency Surgical History Surgical History History of ventral hernia repair 10/28/2023 - Open incarcerated ventral hernia repair without mesh. (defect = 7 cm) by Dr. Harsh Flores Family History Family History Father Heart disease Mother Thyroid disease Mother Family history of thyroid disease Father Family history of coronary artery disease Hypertension Social History Social History Social History: Patient is . Lives with his in [place]. Patient works for [employer]. Smoking packs per day: 1 Smoking cigarettes per day: 20.0 Years smoked: 40 Smoking pack-years: 40.00 Smoking status: Current every day smoker Second hand tobacco smoke exposure: No Alcohol intake: current Drinks per week: 4 Alcohol use details: social drinker Substance use: never Substance use type: does not use Do You Feel Safe in your Home?: Yes Lack of Transportation: No Lack of Food: Never True Current Housing: I Have Housing Concerned About Future Housing: No Difficulty Paying Gas/Electric Bills: No Difficulty Paying for Meds: YES Currently Unemployed: No Education: High School Diploma/GED Difficulty w/ Childcare or Family Care: No Living arrangements: with family Occupation/Education: occupation Gender identity (if verbalized by the patient): Male Sexual Orientation (if Verbalized by the Patient): Straight or Heterosexual Spiritual care concerns: No Agree to blood products: Yes Anes - Eval Final PreProcedure Day of Procedure 01/06/24 10:39 Patient weight: normal Heart: regular rate and rhythm Lungs: clear to auscultation Airway: Mallampati scale class II Neurological: alert and oriented Last oral intake: >/= 8 hours ASA classification: III Emergent: yes Anesthetic plan: proceed Anesthesia type and monitoring: general ETT and standard monitoring Results Review: All pre-operative results and documents have been reviewed as part of the pre-operative evaluation. Informed Consent: The patient's anesthetic plan and its attendant risks and benefits were discussed with the patient/family/POA. Questions were solicited and answers provided to the satisfaction of the patient/family/POA.
[2024-01-06] MEDS: LIDO 1%/EPINEPHRINE 1:100,000 50 ML VIAL 30 ML INFILTRATE (13:10)
[2024-01-06] MEDS: BUPivacaine HCL 0.5% PF 30 ML VIAL INFILTRATE (13:10)
[2024-01-06] MEDS: fentaNYL CITRATE INJ (*CRX) 100 MCG/2 ML VIAL 25 MCG IV PUSH ×8 (13:48→14:10)
[2024-01-06] MEDS: METOPROLOL TARTRATE INJ 5 MG/5 ML VIAL IV PUSH ×2 (13:49→20:56)
[2024-01-06] MEDS: HYDROmorphone HCL INJ (*CRX) 1 MG/ML SYR 0.25 MG IV PUSH ×6 (14:12→14:50)
--- NOTE | 2024-01-06 14:48 | PC.NURSE ---
Returned from OR per [ ]. Report received from [ILENE].
[2024-01-06] MEDS: LIDOCAINE 5% PATCH 1 PATCH TRANSDERM (15:41)
[2024-01-06] MEDS: IPRATROPIUM 0.5 MG/ALBUTEROL SULFATE 2.5 MG AMPUL.NEB 3 ML INHALATION ×2 (15:50→20:54)
[2024-01-06] MEDS: MAG HYDROX/AL HYDROX/SIMETH 30 ML UDC PO ×2 (15:53→20:57)
[2024-01-06] MEDS: IBUPROFEN IV 800 MG/200 ML 800 MG/200 ML BAG 400 MG IVPB ×2 (15:55→20:57)
[2024-01-06] MEDS: DEXTROSE 5%/0.9% SOD CHL 1,000 ML 130 ML IV CONT (15:55)
[2024-01-06] MEDS: diazePAM INJ (*CRX) 10 MG/2 ML SYRINGE 5 MG IV PUSH (20:56)
[2024-01-07] VITALS (14 sets, daily range): BP systolic 116–130; BP diastolic 71–82; PULSE 73–94; RESP 14–20; TEMP 35.9–36.7; O2SAT 92–97; BMI 33.3
[2024-01-07] MEDS: metroNIDAZOLE 500 MG/ISO 100ML 500 MG/100 ML BAG 100 MG IVPB ×3 (01:17→16:11)
[2024-01-07] MEDS: IPRATROPIUM 0.5 MG/ALBUTEROL SULFATE 2.5 MG AMPUL.NEB 3 ML INHALATION ×4 (02:40→19:48)
[2024-01-07] MEDS: DEXTROSE 5%/0.9% SOD CHL 1,000 ML 130 ML IV CONT ×2 (04:22→12:30)
[2024-01-07] MEDS: HYDROmorphone HCL INJ (*CRX) 1 MG/ML SYR IV PUSH (04:23)
[2024-01-07] MEDS: PIPERACILLN/TAZ 3.375GM/NS50ML 3.375 GM/50 ML BAG IVPB ×4 (05:00→23:54)
[2024-01-07] MEDS: MAG HYDROX/AL HYDROX/SIMETH 30 ML UDC PO ×3 (06:30→21:17)
[2024-01-07] MEDS: METOPROLOL TARTRATE INJ 5 MG/5 ML VIAL IV PUSH ×3 (06:30→23:31)
[2024-01-07] MEDS: IBUPROFEN IV 800 MG/200 ML 800 MG/200 ML BAG 400 MG IVPB ×3 (06:30→23:31)
[2024-01-07 07:24] LABS: Alanine Aminotransferase 35 U/L (6-50); Albumin Level 3.3 g/dL (3.5-5.1); Alkaline Phosphatase 56 U/L (38-126); Anion Gap 10 mmol/L (4-12); Aspartate Amino Transferase 36 U/L (17-59); Blood Urea Nitrogen 17 mg/dL (9-20); Calcium 8.7 mg/dL (8.4-10.2); Carbon Dioxide 21 mmol/L (22-30); Chloride 105 mmol/L (98-107); Estimated CRCL calculation 76 ml/min; Estimated Glomerular Filt Rate > 60; Glucose 131 mg/dL (65-110); Potassium 3.5 mmol/L (3.4-5.0); Sodium 136 mmol/L (137-145)
[2024-01-07 08:45] LABS: Basophils Absolute Auto 0.1 K/mm3 (0.0-0.1); Basophils Percent Auto 0.4 % (0.2-1.2); Eosinophils Percent Auto 0.1 % (0-4.4); Hematocrit 32.2 % (42.0-52.0); Hemoglobin 10.5 g/dL (14.0-18.0); Immature Granulocyte Absolute 0.09 K/mm3 (0.00-0.031); Immature Granulocyte Percent A 0.6 % (0-0.5); Lymphocytes Absolute Auto 0.85 K/mm3 (0.9-3.2); Lymphocytes Percent Auto 5.5 % (18.3-44.2); Mean Corpuscular HGB Conc 32.6 g/dl (32-36); Mean Corpuscular Hemoglobin 31.7 pg (26-34); Mean Corpuscular Volume 97.3 fl (80-100); Mean Platelet Volume 9.3 fl (7.4-10.4); Monocytes Percent Auto 6.4 % (2.6-8.5); Neutrophils Absolute Auto 13.4 K/mm3 (1.3-6.7); Platelet Count Result 234 k/mm3 (150-375); Red Blood Count 3.31 M/mm3 (4.6-6.20); Red Cell Distribution Width 14.3 % (11.5-14.5); White Blood Count 15.4 K/mm3 (4.5-10.0)
[2024-01-07] MEDS: ENOXAPARIN 40 MG/0.4 ML SYRINGE SUB-Q (09:04)
[2024-01-07] MEDS: PANTOPRAZOLE SODIUM IV 40 MG VIAL IV PUSH (09:04)
[2024-01-07] MEDS: diazePAM INJ (*CRX) 10 MG/2 ML SYRINGE 5 MG IV PUSH ×2 (09:05→23:31)
[2024-01-07] MEDS: LIDOCAINE 5% PATCH 1 PATCH TRANSDERM (09:05)
--- NOTE | 2024-01-07 10:07 | P.PNAN_ITS ---
Anes - Prog Note Post-Op Date/Time: 01/07/24 10:07 Cardiovascular status: normal Respiratory status: normal Airway patency: baseline Mental status: baseline Post-Op hydration status: normal Vital Signs: Last Vital Signs Temp 36.7 C 01/07/24 08:00 Pulse 73 01/07/24 08:00 Resp 16 01/07/24 08:00 BP 116/74 01/07/24 08:00 Pulse Ox 97 01/07/24 08:00 O2 Del Method Room Air 01/07/24 08:00 O2 Flow Rate 2 01/06/24 14:45 Pain Score (VAS): 2 I/O: Intake & Output 01/06/24 01/07/24 01/07/24 23:59 07:59 15:59 Intake Total 1600 350 Output Total 175 600 Balance 1425 -250 Laboratory Tests 01/07/24 06:25 01/07/24 06:25 01/06/24 01/07/24 09:12 06:25 WBC 15.4 H RBC 3.31 L Hgb 10.5 L D Hct 32.2 L MCV 97.3 MCH 31.7 MCHC 32.6 RDW 14.3 Plt Count 234 MPV 9.3 Immature Gran % (Auto) 0.6 H Neut % (Auto) 87.0 H Lymph % (Auto) 5.5 L [place] % (Auto) 6.4 Eos % (Auto) 0.1 Baso % (Auto) 0.4 Lymph # (Auto) 0.85 L [place] # (Auto) 1.0 H Eos # (Auto) 0.0 Baso # (Auto) 0.1 Abs Immat Gran (auto) 0.09 H Absolute Neuts (auto) 13.4 H Absolute Nucleated RBC 0.000 Nucleated RBC % 0.0 Sodium 136 L Potassium 3.5 Chloride 105 Carbon Dioxide 21 L Anion Gap 10 BUN 17 Creatinine 1.10 Estim Creat Clear Calc 76 Estimated GFR > 60 Glucose 131 H Calcium 8.7 Total Bilirubin 1.0 AST 36 ALT 35 Alkaline Phosphatase 56 Total Protein 6.0 L Albumin 3.3 L Antibody Screen Negative Microbiology 01/06/24 09:03 Blood Blood Culture - Preliminary 01/06/24 08:55 Blood Blood Culture - Preliminary Post-procedural complaints: none Patient Feedback: Patient satisfied with anesthetic care.
--- NOTE | 2024-01-07 13:18 | P.CDI_ITS ---
CDI Query Clarification Request BMI: 33.3 Nutritional Diagnostic Statement: Please refer to the comprehensive nutrition assessment for further information. If you agree with diagnosis of Moderate protein calorie malnutrition related to inadequate energy intake for greater than 1 month due to altered GI function and noted a -11% weight loss x 2 months. Please specify severity if known: * Mild * Moderate * Severe * Other/Unknown <Vickie Churchill RN - Last Filed: 01/07/24 13:19> Clarified Diagnosis Clarified Diagnosis: Moderate protein calorie malnutrition related to inadequate energy intake for greater than 1 month <MAURICIO Santiago - Last Filed: 01/07/24 14:33> Provider Comments Patient has had weight loss in the past 2 months following his last surgery for his incarcerated ventral hernia repair. He has had issues tolerating a diet and intermittent episodes of nausea/vomiting. EMR showed -11% weight loss in the past 2 months. <MAURICIO Santiago - Last Filed: 01/07/24 14:33>
--- NOTE | 2024-01-07 14:31 | WPDANESPN ---
Anes - Prog Note Post-Op Date/Time: 01/07/24 14:31 Cardiovascular status: normal Respiratory status: normal Airway patency: baseline Mental status: baseline Post-Op hydration status: normal Vital Signs: Last Vital Signs Temp 36.6 C 01/07/24 12:00 Pulse 82 01/07/24 14:26 Resp 20 01/07/24 14:26 BP 129/82 01/07/24 12:00 Pulse Ox 94 01/07/24 12:00 O2 Del Method Room Air 01/07/24 08:00 O2 Flow Rate 2 01/06/24 14:45 Pain Score (VAS): 4 I/O: Intake & Output 01/06/24 01/07/24 01/07/24 23:59 07:59 15:59 Intake Total 5357 221 7965 Output Total 175 600 Balance 1425 -250 1150 Laboratory Tests 01/07/24 06:25 01/07/24 06:25 01/07/24 06:25 WBC 15.4 H RBC 3.31 L Hgb 10.5 L D Hct 32.2 L MCV 97.3 MCH 31.7 MCHC 32.6 RDW 14.3 Plt Count 234 MPV 9.3 Immature Gran % (Auto) 0.6 H Neut % (Auto) 87.0 H Lymph % (Auto) 5.5 L [place] % (Auto) 6.4 Eos % (Auto) 0.1 Baso % (Auto) 0.4 Lymph # (Auto) 0.85 L [place] # (Auto) 1.0 H Eos # (Auto) 0.0 Baso # (Auto) 0.1 Abs Immat Gran (auto) 0.09 H Absolute Neuts (auto) 13.4 H Absolute Nucleated RBC 0.000 Nucleated RBC % 0.0 Sodium 136 L Potassium 3.5 Chloride 105 Carbon Dioxide 21 L Anion Gap 10 BUN 17 Creatinine 1.10 Estim Creat Clear Calc 76 Estimated GFR > 60 Glucose 131 H Calcium 8.7 Total Bilirubin 1.0 AST 36 ALT 35 Alkaline Phosphatase 56 Total Protein 6.0 L Albumin 3.3 L Microbiology 01/06/24 09:03 Blood Blood Culture - Preliminary 01/06/24 08:55 Blood Blood Culture - Preliminary Post-procedural complaints: none Patient Feedback: Patient satisfied with anesthetic care.
--- NOTE | 2024-01-07 14:33 | P.PNGS_ITS ---
Progress Note: A&P Assessment and Plan (1) Pneumoperitoneum: Code(s): K66.8 - Other specified disorders of peritoneum Status: Acute Assessment and Plan: Patient presented with CT evidence of a small bowel obstruction with pneumoperitoneum who underwent exploratory laparotomy and small bowel resection. Doing well postop day 1. Continue IV antibiotics. Continue NG tube decompression, bowel rest, and IV fluids. Guaman catheter discontinued today. Encouraged IS use and increasing activity. Repeat labs tomorrow. (2) Small bowel obstruction: Code(s): K56.609 - Unspecified intestinal obstruction, unspecified as to partial versus complete obstruction Status: Acute Assessment and Plan: CT on admission showed evidence of a small bowel obstruction likely secondary to the small bowel inflammation with stricturing, which was surgically resected yesterday. Await return of bowel function. Continue NG tube decompression, bowel rest, and IV fluids. Encouraged increasing activity and ambulating a few times today. He has been up to the chair. (3) Sepsis: Code(s): A41.9 - Sepsis, unspecified organism Status: Acute Assessment and Plan: Secondary to bowel perforation. S/p source control. He has been afebrile since surgery. Tachycardia resolved. WBC count down to 15,400. Continue IV antibiotics. Blood cx pending. (4) Protein-calorie malnutrition, moderate: Code(s): E44.0 - Moderate protein-calorie malnutrition Status: Acute Assessment and Plan: Weight loss in the past 2 months following his ventral hernia repair due his inability to tolerate a diet intermittently. EMR shows -11% weight loss in 2 months. Dietitian following. (5) Small bowel stricture: Code(s): K56.699 - Other intestinal obstruction unspecified as to partial versus complete obstruction Status: Acute Assessment and Plan: Resected during surgery. Pathology pending. (6) Essential (primary) hypertension: Code(s): I10 - Essential (primary) hypertension Status: Chronic Assessment and Plan: Home medications on hold. BP stable. Currently on scheduled IV metoprolol. (7) Hypothyroid: Qualifiers: Hypothyroidism type: acquired Qualified Code(s): E03.9 - Hy pothyroidism, unspecified Code(s): E03.9 - Hypothyroidism, unspecified Status: Chronic Assessment and Plan: Levothyroxine on hold while NPO. (8) Tobacco abuse: Code(s): Z72.0 - Tobacco use Status: Acute (9) Chronic obstructive pulmonary disease: Qualifiers: COPD type: emphysema Emphysema type: unspecified Qualified Code(s): J43.9 - Emphysema, unspecified Code(s): J44.9 - Chronic obstructive pulmonary disease, unspecified Status: Acute Plan I have discussed the patient's case and plan of care with Dr. Flores. Subjective Subjective Date/Time Seen: 01/07/24 14:33 Patient reports: no flatus and no bowel movement Interval history: Patient doing well today. He still reports generalized abdominal pain that is aggravated by any movement or coughing. He feels overall better than yesterday. No flatus. He has been up walking in the room and sat up in the chair earlier today. He complains of a sore throat from the NG tube. No nausea. Still feels bloated today. His Gu[place] catheter was removed shortly before my exam and he has not yet voided. Exam Const: General: comfortable and no acute distress Orientation/consciousness: patient oriented x3 GI: Auscultation: Hypoactive bowel sounds present Other: Abdomen obese, mildly distended, and softer today. Midline incision is covered by an island dressing that is dry and intact. He has diffuse tenderness throughout but improved. No guarding or peritoneal signs. Objective Data Vital Signs Vital Signs: Vital Signs - 24 hr 01/06/24 14:45 01/06/24 15:52 01/06/24 15:52 Temperature 99.8 F H Pulse Rate 98 94 Respiratory Rate 16 20 Blood Pressure 155/78 H Pulse Oximetry 98 94 Oxygen Delivery Nasal Cannula Room Air Oxygen Flow Rate 2 01/06/24 16:00 01/06/24 15:10 01/06/24 15:25 Temperature 98.4 F 98.5 F Pulse Rate 96 95 93 Respiratory Rate 20 20 20 Blood Pressure 129/96 H 133/83 Pulse Oximetry 98 97 Oxygen Delivery Oxygen Flow Rate 01/06/24 15:55 01/06/24 16:59 01/06/24 20:54 Temperature 98.4 F 98.2 F Pulse Rate 95 99 92 Respiratory Rate 20 20 20 Blood Pressure 150/59 H 133/79 Pulse Oximetry 100 94 Oxygen Delivery Oxygen Flow Rate 01/06/24 21:04 01/06/24 20:00 01/07/24 02:42 Temperature Pulse Rate 92 88 Respiratory Rate 20 20 Blood Pressure Pulse Oximetry Oxygen Delivery Room Air Oxygen Flow Rate 01/07/24 02:48 01/06/24 20:30 01/07/24 04:00 Temperature 96.6 F L Pulse Rate 90 94 81 Respiratory Rate 20 18 Blood Pressure 117/72 120/77 Pulse Oximetry 96 Oxygen Delivery Oxygen Flow Rate 01/07/24 07:45 01/07/24 07:45 01/07/24 07:56 Temperature Pulse Rate 74 80 Respiratory Rate 20 20 Blood Pressure Pulse Oximetry 96 Oxygen Delivery Room Air Oxygen Flow Rate 01/07/24 08:00 01/07/24 08:00 01/07/24 12:00 Temperature 98.0 F 97.8 F Pulse Rate 73 83 Respiratory Rate 16 16 Blood Pressure 116/74 129/82 Pulse Oximetry 97 94 Oxygen Delivery Room Air Oxygen Flow Rate 01/07/24 13:53 01/07/24 14:26 Temperature Pulse Rate 83 82 Respiratory Rate 20 Blood Pressure Pulse Oximetry Oxygen Delivery Oxygen Flow Rate Intake/Output Intake/Output: Intake & Output 01/04/24 01/05/24 01/06/24 01/07/24 23:59 23:59 23:59 23:59 Intake Total 2800 1500 Output Total 215 600 Balance 2585 900 Meds/Results Medications: Active Medications Generic Name Dose Route Start Last Admin Trade Name Freq PRN Reason Stop Dose Admin Acetaminophen 1,000 mg 01/06/24 14:56 Acetaminophen 500 Mg Tablet PO Q6H PRN Mild Pain (1-3) or Fever Al Hydrox/Mg Hydrox/Simethicone 30 ml 01/06/24 14:56 01/07/24 13:52 Mag Hydrox/Al Hydrox/Simeth 30 Ml Udc PO 30 ml Q8HR TANNA Administration Albuterol/Ipratropium 3 ml 01/06/24 14:56 01/07/24 14:26 Ipratropium 0.5 Mg/Albuterol Sulfate 2.5 Mg Ampul.Neb 3 Ml INHALATION 3 ml Q6HRT TANNA Administration Diazepam 5 mg 01/06/24 21:00 01/07/24 09:05 Diazepam Inj (*Crx) 10 Mg/2 Ml Syringe IV PUSH 5 mg Q12HR TANNA Administration Enoxaparin Sodium 40 mg 01/07/24 09:00 01/07/24 09:04 Enoxaparin 40 Mg/0.4 Ml Syringe SUB-Q 40 mg DAILY TANNA Administration Hydromorphone HCl 1 mg 01/06/24 14:56 01/07/24 04:23 Hydromorphone Hcl Inj (*Crx) 1 Mg/Ml Syr IV PUSH 1 mg Q3H PRN Administration Pain Rated 7-10 Piperacillin/Tazobactam/Dextrose 3.375 gm in 50 mls @ 100 mls/hr 01/06/24 12:00 01/07/24 12:22 Zosyn 3.375 Gm/Ns 50 Ml IVPB Infused Q6H TANNA Infusion Metronidazole 500 mg in 100 mls @ 100 mls/hr 01/06/24 09:00 01/07/24 10:10 Flagyl 500 Mg/Iso Soln 100 Ml IVPB Infused Q8H TANNA Infusion Ibuprofen 800 mg in 200 mls @ 400 mls/hr 01/06/24 14:56 01/07/24 13:53 Caldolor 800 Mg/200 Ml IVPB 400 mls/hr Q8HR TANNA Administration Dextrose/Sodium Chloride 1,000 mls @ 130 mls/hr 01/06/24 14:56 01/07/24 12:30 Dextrose 5% Sodium Chloride 0.9% IV CONT 130 mls/hr .Q7H42M TANNA Administration Lidocaine 1 patch 01/06/24 13:50 01/07/24 09:05 Lidocaine 5% Patch TRANSDERM 1 patch DAILY TANNA Administration Metoprolol Tartrate 5 mg 01/06/24 13:45 01/07/24 13:53 Metoprolol Tartrate Inj 5 Mg/5 Ml Vial IV PUSH 5 mg Q8HR TANNA Administration Ondansetron HCl 4 mg 01/06/24 06:38 Ondansetron Inj 4 Mg/2 Ml Vial IV PUSH Q4H PRN Nausea Pantoprazole Sodium 40 mg 01/07/24 09:00 01/07/24 09:04 Pantoprazole Sodium Iv 40 Mg Vial IV PUSH 40 mg QAM TANNA Administration Radiology Results: ITS Impressions Abdomen/Pelvis CT 01/06/24 06:14 Impression: [id number] pneumoperitoneum is suspicious for bowel perforation in the absence of appropriate recent surgical/procedural history. Correlate clinically. Small bowel obstruction, transition point as detailed above. Extensive inflammatory changes involving distended small bowel loops, with inflammatory change the mesentery and areas of mild wall thickening. Infectious/inflammatory enteritis is a consideration, though of note, the terminal/distal ileum appear essentially unaffected. Small seroma versus abscess in the anterior subcutaneous soft tissues superior to the umbilicus. Case discussed with Dr. Germain at the time of this reading. Labs Labs: Laboratory Results - last 24 hr 01/07/24 06:25 WBC 15.4 H RBC 3.31 L Hgb 10.5 L D Hct 32.2 L MCV 97.3 MCH 31.7 MCHC 32.6 RDW 14.3 Plt Count 234 MPV 9.3 Immature Gran % (Auto) 0.6 H Neut % (Auto) 87.0 H Lymph % (Auto) 5.5 L [place] % (Auto) 6.4 Eos % (Auto) 0.1 Baso % (Auto) 0.4 Lymph # (Auto) 0.85 L [place] # (Auto) 1.0 H Eos # (Auto) 0.0 Baso # (Auto) 0.1 Abs Immat Gran (auto) 0.09 H Absolute Neuts (auto) 13.4 H Absolute Nucleated RBC 0.000 Nucleated RBC % 0.0 Sodium 136 L Potassium 3.5 Chloride 105 Carbon Dioxide 21 L Anion Gap 10 BUN 17 Creatinine 1.10 Estim Creat Clear Calc 76 Estimated GFR > 60 Glucose 131 H Calcium 8.7 Total Bilirubin 1.0 AST 36 ALT 35 Alkaline Phosphatase 56 Total Protein 6.0 L Albumin 3.3 L
[2024-01-07] MEDS: PHENOL/SOD PHENO SPRAY CHERRY (*BKC) 1 SPRAY MUCOUS MEM (15:45)
--- NOTE | 2024-01-07 17:10 | W.PM.PROC2 ---
Procedure Note - Detailed Date of Procedure 01/06/24 Pre-op Diagnosis Small bowel obstruction,bowel perforation Post-op Diagnosis Same Procedure Performed Exploratory laparotomy with segmental small bowel resection and [id number] stapled small bowel anastomosis. Open appendectomy. Surgeon Harsh Flores MD Sizing Machine And Drier Operator Clayton Galindo MD Anesthesia General Indications Patient is a 58-year-old gentleman who presented to the emergency room with a 12hour history of worsening lower abdominal pain. Had a significant prior history of having an open incarcerated ventral hernia repaired about 2 months ago by me. No mesh was used at that time. The bowel was ischemic but it was viable. Due to having some symptoms of bloating and nausea he underwent workup with a barium small bowel study. This showed some areas of mild stricture ring in distal small bowel which was the same areas of small bowel affected by the hernia ischemic small bowel. The patient was offered surgery electively to resect the areas of stricture but he did not feel that he will not undergo surgery for his symptoms at that time. He now presents with acute surgical abdomen due to with his looks to be likely perforation of the small bowel and free air in the abdomen. Findings The patient had indurated and thickened small-bowel in the distal jejunum all the way to the distal terminal ileum. About 10cm of the terminal ileum just proximal to the ileocecal valve appeared to be normal. The affected area bowel had fibropurulent rind on many loops and adhesions of the omentum to these loops of small bowel but no obvious large perforation could be seen. We ran the small bowel multiple times the ligament Treitz to terminal ileum did not find a true perforation. There is no pelvic abscess. The colon appeared to be normal. The stomach and duodenum appeared to be normal. I ended up resecting approximately 2ft of small bowel that included the distal jejunum and the terminal ileum up to about 10cm proximal to the ileocecal valve. A [id number] stapled small bowel anastomosis was performed to restore continuity to the GI tract. Description of Procedure After informed consent was obtained patient was brought to the operating room he was placed supine position and general endotracheal anesthesia was administered. A Guaman catheter was then placed decompress the bladder and a nasogastric tube was already in place to decompress the stomach. The abdomen was then prepped and draped usual sterile fashion. A time-out was then performed correctly identifying the patient as well as the procedure to be performed. Was already on scheduled IV antibiotics. I then made a midline incision starting in the mid epigastric region and extended down to a few cm below the umbilicus. This included the old midline scar which was excised out sharply with a scalpel. The tissue was discarded. I continued dissecting down through the subcutaneous tissues intact reach the midline fascia. In the upper portion of the and incision I then entered the abdomen with electrocautery taking great care not to injure any bowel underneath. Once I placed my finger into the abdomen I then opened the fascia over my finger to avoid injury to any bowel. Surprisingly there was very minimal adhesions of the small bowel to the abdominal wall. Once I had the midline fascia opened up the whole length of the skin incision I then took down a few small bowel adhesions to the right side of the abdominal wall easily with electrocautery. I then placed a Jef retracted to aid with exposure. The small bowel was then eviscerated and there was an area of distal small bowel the right lower quadrant the abdomen that had matted loops of small bowel with fiber purulent rind on the surface of the bowel. This was easily with blunt finger dissection. There is no large perforation in this area. There were some adhesions of the omentum to the small bowel which were released utilizing the LigaSure energy device. The small bowel loops appeared to be edematous and inflamed. It extended from the distal jejunum all the way down to the the terminal ileum and the process stopped about 10cm proximal to the ileocecal valve. We then checked the stomach and duodenum as well as the sigmoid colon and these all appeared to be normal without evidence of inflammation. I then proceeded to resect the abnormal appearing small bowel by making a defect through the mesentery approximately to 30cm proximal to where the bowel was inflamed. This was done electrocautery. Distally a defect was made through the mesentery to the terminal ileum about 10cm proximal to the ileocecal valve where the terminal ileum appeared to be normal. I then used 55mm GI staplers to divide the small bowel these resection points. The mesentery between the 2 resection points were then divided utilizing the LigaSure device. The small bowel was then marked with a suture on the distal staple line and sent to pathology for examination. I then proceeded to perform a sjrl-[id number]-plty anti peristaltic stapled small bowel anastomosis between the jejunum and the terminal ileum. The 2 ends of small bowel were then brought in apposition ajqd-vr-appz fashion and 3-0 silk sutures were placed for stay sutures with good serosal bites. The corner of the staple line on each end the bowel was then resected utilizing Metzenbaum scissors. A reload to the CHRISTINA 55 stapler was then used to create a common channel between the 2 ends of the bowel. The resulting enterotomy the top of the anastomosis was then closed utilizing a single firing a TA 60 stapler. There was a good wide anastomosis measuring at least 2 to 3 cm By palpation. I then proceeded to close the mesenteric defect by placing a running 3-0 chromic suture. I then proceeded to perform a an open appendectomy since the appendix was right in the operative field and there would be minimal downsized to remove the appendix at this time. The mesoappendix was then divided with the LigaSure device. A reload to the CHRISTINA 55 stapler was used to divide the appendix flush with the cecum. The appendix was passed off table sent to pathology for examination. I checked the staple line on the appendiceal stump and it was intact. The mesoappendix was hemostatic. The anastomosis and bowel was then placed back into the abdomen and the abdomen is irrigated with 3L of warm saline solution. Hemostasis was good. I then proceeded to close the abdomen by placing a running looped 1. PDS suture started at each end of the incision around to the middle with a met and then were tied to each other. Along the way and closing the fascia and every 2 to 3 cm intervals interrupted 0 Vicryl sutures were placed for internal retention sutures on the fascia. The fascia closed easily without any tension. I then irrigated the subcutaneous tissues with sterile saline solution. Hemostasis was good. The subcu tissues were then closed in layers utilizing interrupted 2-0 Vicryl sutures which were then followed by running 3-0 Vicryl suture the more superficial subcutaneous tissues. The skin edges were then approximated utilizing skin jim. Incision was then cleaned and then a sterile silver impregnated island dressing was placed. The patient tolerated the procedure well no complications. All sponges, needles, and instrument counts were correct at the end procedure. EBL was _50__cc. The patient was awakened and taken to recovery in stable and satisfactory condition. Implants None Estimated Blood Loss 50 Drains No Packing No Pathology Yes ( distal jejunum and terminal ileum and appendix was sent to pathology.) Complications No immediate complications Condition Stable Disposition PACU [facility] Billing Surgery - Charge Forward: Surgery Billing
[2024-01-07] MEDS: HYDROcodone/acetaminophen (*CRX) 10-325 MG TABLET 1 TAB PO (21:16)
[2024-01-07] MEDS: KCL 20 MEQ/D5/0.9% SOD CHL 1,000 ML 130 ML IV CONT (23:31)
[2024-01-08] VITALS (18 sets, daily range): BP systolic 113–125; BP diastolic 67–79; PULSE 78–96; RESP 14–20; TEMP 36.1–37.4; O2SAT 93–96
[2024-01-08] MEDS: metroNIDAZOLE 500 MG/ISO 100ML 500 MG/100 ML BAG 100 MG IVPB ×3 (01:43→16:03)
[2024-01-08] MEDS: IPRATROPIUM 0.5 MG/ALBUTEROL SULFATE 2.5 MG AMPUL.NEB 3 ML INHALATION ×4 (02:33→19:58)
[2024-01-08] MEDS: METOPROLOL TARTRATE INJ 5 MG/5 ML VIAL IV PUSH ×3 (06:22→21:09)
[2024-01-08] MEDS: MAG HYDROX/AL HYDROX/SIMETH 30 ML UDC PO ×3 (06:22→21:10)
[2024-01-08] MEDS: IBUPROFEN IV 800 MG/200 ML 800 MG/200 ML BAG 400 MG IVPB ×3 (06:22→21:10)
[2024-01-08] MEDS: PIPERACILLN/TAZ 3.375GM/NS50ML 3.375 GM/50 ML BAG IVPB ×3 (06:23→18:08)
[2024-01-08 06:37] LABS: Basophils Percent Auto 0.2 % (0.2-1.2); Eosinophils Absolute Auto 0.3 K/mm3 (0-0.3); Eosinophils Percent Auto 2.7 % (0-4.4); Hematocrit 27.9 % (42.0-52.0); Hemoglobin 9.1 g/dL (14.0-18.0); Immature Granulocyte Absolute 0.11 K/mm3 (0.00-0.031); Immature Granulocyte Percent A 0.9 % (0-0.5); Lymphocytes Percent Auto 5.9 % (18.3-44.2); Mean Corpuscular HGB Conc 32.6 g/dl (32-36); Mean Corpuscular Hemoglobin 31.7 pg (26-34); Mean Corpuscular Volume 97.2 fl (80-100); Mean Platelet Volume 8.8 fl (7.4-10.4); Monocytes Absolute Auto 0.8 K/mm3 (0.1-0.6); Monocytes Percent Auto 6.9 % (2.6-8.5); Neutrophils Percent Auto 83.4 % (45.5-73.1); Platelet Count Result 212 k/mm3 (150-375); Red Blood Count 2.87 M/mm3 (4.6-6.20); Red Cell Distribution Width 14.2 % (11.5-14.5)
[2024-01-08 06:52] LABS: Anion Gap 10 mmol/L (4-12); Blood Urea Nitrogen 18 mg/dL (9-20); Calcium 8.1 mg/dL (8.4-10.2); Carbon Dioxide 20 mmol/L (22-30); Chloride 109 mmol/L (98-107); Estimated CRCL calculation 56 ml/min; Estimated Glomerular Filt Rate 48; Glucose 114 mg/dL (65-110); Potassium 3.1 mmol/L (3.4-5.0); Sodium 139 mmol/L (137-145)
[2024-01-08 07:54] LABS: Magnesium 1.2 mg/dL (1.6-2.3)
[2024-01-08] MEDS: LIDOCAINE 5% PATCH 1 PATCH TRANSDERM (08:21)
[2024-01-08] MEDS: ENOXAPARIN 40 MG/0.4 ML SYRINGE SUB-Q (08:21)
[2024-01-08] MEDS: diazePAM INJ (*CRX) 10 MG/2 ML SYRINGE 5 MG IV PUSH ×2 (08:22→21:09)
[2024-01-08] MEDS: PANTOPRAZOLE SODIUM IV 40 MG VIAL IV PUSH (08:36)
[2024-01-08] MEDS: SODIUM CHLORIDE 0.9% IV 1,000 ML 100 ML IV CONT (09:10)
[2024-01-08] MEDS: HYDROmorphone HCL INJ (*CRX) 1 MG/ML SYR IV PUSH ×2 (13:13→19:51)
--- NOTE | 2024-01-08 15:54 | WPDPN ---
Progress Note: A&P Assessment and Plan (1) Small bowel obstruction: Code(s): K56.609 - Unspecified intestinal obstruction, unspecified as to partial versus complete obstruction Status: Acute Assessment and Plan: Patient is doing well postop day number 2 after emergent exploratory laparotomy segmental small bowel resection for perforation due to small-bowel strictures. Knowledge is back and it shows areas of transmural necrosis and stricture ring likely due to his prior episode of acute ischemia of small after his incarcerated hernia repair 2 months ago. The small bowel did not become totally necrotic that time but healing process he formed structures and small-bowel obstruction. No evidence of malignancy was noted. No obvious evidence of inflammatory bowel disease was seen. We will clamp his nasogastric tube since had a small bowel movement. If he is doing well clamping the nasogastric tube that he can have removed we started on liquids tomorrow. Continue IV antibiotics for today. If white blood cell count continues to fall or for normalizes tomorrow then likely switch to oral antibiotics. Continue to ambulate the hallways and up to chair. Continue routine postoperative supportive management. His potassium and magnesium were both low today and they were repleted with IV boluses. Recheck levels tomorrow. Subjective Date/time seen: 01/08/24 15:54 Interval history: Patient is doing fairly well today. Up ambulating in the hallways and sitting in chair. He had a small bowel movement this morning. White blood count is down to 12,000. No fever. Creatinine did increase to 1.5. Trouble with current pain med scheduled IV ibuprofen, transdermal lidocaine patch, and breakthrough morphine. Nasogastric tube remains in place. Output is low. Both the patient potassium and magnesium are low. Exam GI: Other: Abdomen is soft and mildly distended. Bowel sounds are noted. Midline incision is healing well without any redness or drainage. Yancy are in place. Expected mild tenderness to palpation around the midline incision. Objective Data Vital Signs Vital Signs: Vital Signs - 24 hr 01/07/24 16:00 01/07/24 19:50 01/07/24 19:50 Temperature 36.7 C Pulse Rate 83 90 Respiratory Rate 14 18 Blood Pressure 119/71 Pulse Oximetry 94 94 Oxygen Delivery Room Air 01/07/24 20:00 01/07/24 20:00 01/07/24 23:31 Temperature 36.5 C Pulse Rate 94 90 Respiratory Rate 18 Blood Pressure 130/76 Pulse Oximetry 92 Oxygen Delivery Room Air 01/08/24 00:00 01/08/24 02:34 01/07/24 20:00 Temperature 36.4 C Pulse Rate 95 82 91 Respiratory Rate 20 18 18 Blood Pressure 115/67 Pulse Oximetry 94 Oxygen Delivery 01/08/24 02:44 01/08/24 04:00 01/08/24 06:22 Temperature 36.5 C Pulse Rate 84 86 86 Respiratory Rate 18 20 Blood Pressure 117/73 Pulse Oximetry 94 Oxygen Delivery 01/08/24 07:10 01/08/24 07:10 01/08/24 07:20 Temperature Pulse Rate 84 84 83 Respiratory Rate 18 18 18 Blood Pressure Pulse Oximetry 93 Oxygen Delivery Room Air 01/08/24 08:00 01/08/24 08:00 01/08/24 12:00 Temperature 36.1 C L 36.2 C L Pulse Rate 78 82 Respiratory Rate 16 14 Blood Pressure 113/73 120/68 Pulse Oximetry 96 95 Oxygen Delivery Room Air 01/08/24 13:04 01/08/24 13:20 01/08/24 13:30 Temperature Pulse Rate 82 81 84 Respiratory Rate 18 18 Blood Pressure Pulse Oximetry Oxygen Delivery Intake/Output Intake/Output: Intake & Output 01/05/24 01/06/24 01/07/24 01/08/24 23:59 23:59 23:59 23:59 Intake Total 2800 2450 1989 Output Total 215 1525 Balance 2589 925 1989 Meds/Results Medications: Active Medications Generic Name Dose Route Start Last Admin Trade Name Freq PRN Reason Stop Dose Admin Acetaminophen 1,000 mg 01/06/24 14:56 Acetaminophen 500 Mg Tablet PO Q6H PRN Mild Pain (1-3) or Fever Al Hydrox/Mg Hydrox/Simethicone 30 ml 01/06/24 14:56 01/08/24 13:04 Mag Hydrox/Al Hydrox/Simeth 30 Ml Udc PO 30 ml Q8HR TANNA Administration Albuterol/Ipratropium 3 ml 01/06/24 14:56 01/08/24 13:20 Ipratropium 0.5 Mg/Albuterol Sulfate 2.5 Mg Ampul.Neb 3 Ml INHALATION 3 ml Q6HRT TANNA Administration Diazepam 5 mg 01/06/24 21:00 10/04/24 08:22 Diazepam Inj (*Crx) 10 Mg/2 Ml Syringe IV PUSH 5 mg Q12HR TANNA Administration Enoxaparin Sodium 40 mg 01/07/24 09:00 01/08/24 08:21 Enoxaparin 40 Mg/0.4 Ml Syringe SUB-Q 40 mg DAILY TANNA Administration Hydromorphone HCl 1 mg 01/06/24 14:56 01/08/24 13:13 Hydromorphone Hcl Inj (*Crx) 1 Mg/Ml Syr IV PUSH 1 mg Q3H PRN Administration Pain Rated 7-10 Piperacillin/Tazobactam/Dextrose 3.375 gm in 50 mls @ 100 mls/hr 01/06/24 12:00 01/08/24 12:30 Zosyn 3.375 Gm/Ns 50 Ml IVPB Infused Q6H TANNA Infusion Metronidazole 500 mg in 100 mls @ 100 mls/hr 01/06/24 09:00 01/08/24 09:36 Flagyl 500 Mg/Iso Soln 100 Ml IVPB Infused Q8H TANNA Infusion Ibuprofen 800 mg in 200 mls @ 400 mls/hr 01/06/24 14:56 01/08/24 13:33 Caldolor 800 Mg/200 Ml IVPB Infused Q8HR TANNA Infusion Potassium Chloride/Dextrose/Sod Cl 1,000 mls @ 130 mls/hr 01/07/24 15:40 01/08/24 09:11 Kcl 20 Meq/D5/0.9% Sod Chl IV CONT Not Given .Q7H42M TANNA Sodium Chloride 1,000 mls @ 100 mls/hr 01/08/24 07:30 01/08/24 09:10 Normal Saline Iv IV CONT 100 mls/hr .Q10H TANNA Administration Magnesium Sulfate 2 gm in 50 mls @ 25 mls/hr 01/08/24 15:50 Magnesium Sulf 2 Gm/Water 50ml IVPB 01/08/24 17:49 ONCE ONE Lidocaine 1 patch 01/06/24 13:50 01/08/24 08:21 Lidocaine 5% Patch TRANSDERM 1 patch DAILY TANNA Administration Metoprolol Tartrate 5 mg 01/06/24 13:45 01/08/24 13:04 Metoprolol Tartrate Inj 5 Mg/5 Ml Vial IV PUSH 5 mg Q8HR TANNA Administration Ondansetron HCl 4 mg 01/06/24 06:38 Ondansetron Inj 4 Mg/2 Ml Vial IV PUSH Q4H PRN Nausea Pantoprazole Sodium 40 mg 01/07/24 09:00 01/08/24 08:36 Pantoprazole Sodium Iv 40 Mg Vial IV PUSH 40 mg QAM TANNA Administration Phenol 1 spray 01/07/24 14:43 01/07/24 15:45 Phenol/Sod Pheno [place] (*Bkc) MUCOUS MEM 1 spray PRN PRN Administration Sore Throat Radiology Results: ITS Impressions Abdomen/Pelvis CT 01/06/24 06:14 Impression: [id number] pneumoperitoneum is suspicious for bowel perforation in the absence of appropriate recent surgical/procedural history. Correlate clinically. Small bowel obstruction, transition point as detailed above. Extensive inflammatory changes involving distended small bowel loops, with inflammatory change the mesentery and areas of mild wall thickening. Infectious/inflammatory enteritis is a consideration, though of note, the terminal/distal ileum appear essentially unaffected. Small seroma versus abscess in the anterior subcutaneous soft tissues superior to the umbilicus. Case discussed with Dr. Germain at the time of this reading. Labs Labs: Laboratory Results - last 24 hr 01/08/24 01/08/24 06:20 06:28 WBC 12.0 H RBC 2.87 L Hgb 9.1 L Hct 27.9 L MCV 97.2 MCH 31.7 MCHC 32.6 RDW 14.2 Plt Count 212 MPV 8.8 Immature Gran % (Auto) 0.9 H Neut % (Auto) 83.4 H Lymph % (Auto) 5.9 L [place] % (Auto) 6.9 Eos % (Auto) 2.7 Baso % (Auto) 0.2 Lymph # (Auto) 0.70 L [place] # (Auto) 0.8 H Eos # (Auto) 0.3 Baso # (Auto) 0.0 Abs Immat Gran (auto) 0.11 H Absolute Neuts (auto) 10.0 H Absolute Nucleated RBC 0.000 Nucleated RBC % 0.0 Sodium 139 Potassium 3.1 L Chloride 109 H Carbon Dioxide 20 L Anion Gap 10 BUN 18 Creatinine 1.50 H Estim Creat Clear Calc 56 Estimated GFR 48 L Glucose 114 H Calcium 8.1 L Magnesium 1.2 L
[2024-01-08] MEDS: MAGNESIUM SULF 2 GM/WATER 50ML 2 GM/50 ML BAG IVPB (16:01)
[2024-01-08] MEDS: POTASSIUM CHLORIDE INJ 40 MEQ in SODIUM CHLORIDE 0.9% IV 500 ML 130 MEQ IVPB (22:16)
[2024-01-09] VITALS (17 sets, daily range): BP systolic 125–131; BP diastolic 72–82; PULSE 70–95; RESP 16–18; TEMP 36.1–37.2; O2SAT 94–100
[2024-01-09] MEDS: HYDROmorphone HCL INJ (*CRX) 1 MG/ML SYR IV PUSH ×4 (00:23→22:52)
[2024-01-09] MEDS: PIPERACILLN/TAZ 3.375GM/NS50ML 3.375 GM/50 ML BAG IVPB ×5 (00:24→22:57)
[2024-01-09] MEDS: metroNIDAZOLE 500 MG/ISO 100ML 500 MG/100 ML BAG 100 MG IVPB ×3 (01:32→16:51)
[2024-01-09] MEDS: IPRATROPIUM 0.5 MG/ALBUTEROL SULFATE 2.5 MG AMPUL.NEB 3 ML INHALATION ×4 (02:11→19:50)
[2024-01-09] MEDS: KCL 20 MEQ/D5/0.9% SOD CHL 1,000 ML 130 ML IV CONT ×2 (02:15→17:00)
[2024-01-09] MEDS: IBUPROFEN IV 800 MG/200 ML 800 MG/200 ML BAG 400 MG IVPB (05:58)
[2024-01-09 06:22] LABS: Basophils Percent Auto 0.2 % (0.2-1.2); Eosinophils Absolute Auto 0.4 K/mm3 (0-0.3); Eosinophils Percent Auto 3.2 % (0-4.4); Hematocrit 28.7 % (42.0-52.0); Immature Granulocyte Percent A 0.8 % (0-0.5); Lymphocytes Absolute Auto 0.56 K/mm3 (0.9-3.2); Lymphocytes Percent Auto 4.6 % (18.3-44.2); Mean Corpuscular HGB Conc 31.4 g/dl (32-36); Mean Corpuscular Hemoglobin 31.1 pg (26-34); Mean Corpuscular Volume 99.3 fl (80-100); Mean Platelet Volume 9.4 fl (7.4-10.4); Monocytes Percent Auto 7.7 % (2.6-8.5); Neutrophils Absolute Auto 10.3 K/mm3 (1.3-6.7); Neutrophils Percent Auto 83.5 % (45.5-73.1); Platelet Count Result 262 k/mm3 (150-375); Red Blood Count 2.89 M/mm3 (4.6-6.20); Red Cell Distribution Width 14.6 % (11.5-14.5); White Blood Count 12.3 K/mm3 (4.5-10.0)
[2024-01-09] MEDS: MAG HYDROX/AL HYDROX/SIMETH 30 ML UDC PO (06:31)
[2024-01-09] MEDS: METOPROLOL TARTRATE INJ 5 MG/5 ML VIAL IV PUSH ×3 (06:31→21:24)
[2024-01-09 06:36] LABS: Alanine Aminotransferase 21 U/L (6-50); Albumin Level 3.2 g/dL (3.5-5.1); Alkaline Phosphatase 61 U/L (38-126); Anion Gap 8 mmol/L (4-12); Aspartate Amino Transferase 26 U/L (17-59); Bilirubin,Total 0.6 mg/dL (0.2-1.3); Blood Urea Nitrogen 18 mg/dL (9-20); Calcium 7.9 mg/dL (8.4-10.2); Carbon Dioxide 20 mmol/L (22-30); Chloride 113 mmol/L (98-107); Estimated CRCL calculation 50 ml/min; Estimated Glomerular Filt Rate 41; Glucose 120 mg/dL (65-110); Magnesium 1.7 mg/dL (1.6-2.3); Phosphorus 2.5 mg/dL (2.5-4.5); Potassium 3.1 mmol/L (3.4-5.0); Sodium 141 mmol/L (137-145)
[2024-01-09] MEDS: diazePAM INJ (*CRX) 10 MG/2 ML SYRINGE 5 MG IV PUSH (07:55)
[2024-01-09] MEDS: ENOXAPARIN 40 MG/0.4 ML SYRINGE SUB-Q (07:56)
--- NOTE | 2024-01-09 07:59 | PC.NURSE ---
On 01/09/24, the student, [Antonio Strong], provided care and completed [employer] documentation on this patient. I have reviewed the student's documentation and agree with the findings.
[2024-01-09] MEDS: PANTOPRAZOLE SODIUM IV 40 MG VIAL IV PUSH (08:13)
--- NOTE | 2024-01-09 10:31 | P.PN_ITS ---
Progress Note: A&P Assessment and Plan (1) Acute renal insufficiency: Code(s): N28.9 - Disorder of kidney and ureter, unspecified Status: Acute Assessment and Plan: Creatinine has slowly increased from his baseline around 1 to 1.7 over the past 2 days. Will have Nephrology come see him to assess him for his acute renal insufficiency. IV ibuprofen has been stopped. Not on any VANGIE inhibitors. Continue with IV fluids. Potassium has been low at 3.1. Potassium has been ordered for today. (2) Small bowel stricture: Code(s): K56.699 - Other intestinal obstruction unspecified as to partial versus complete obstruction Status: Acute Assessment and Plan: Strictures of his distal small bowel. Causing small bowel obstruction and small perforation. Apology showed benign strictures. Area has been resected and his bowel function is returning. We will go ahead remove his nasogastric tube today. Go ahead start him on clear liquids and advanced to full liquids as tolerated. Medications to p.o.. His white blood count is still 12,000 so we will continue with IV antibiotics he had a small bowel perforation. Continue to get up and ambulate the hallways. Subjective Date/time seen: 01/09/24 10:31 Interval history: Patient looks good today. He has been up walking in the hallways. Passing a lot of flatus but bowel movements since yesterday. Nasogastric tube was then clamped all night he has tolerated that well. No nausea no increasing abdominal pain. He does not feel bloated. His potassium is still 3.1 despite potassium boluses yesterday IV. Magnesium bolus was also given to him yesterday and Magnesium level today is normal. His creatinine increased from 1.5 to 1.7. His baseline was around 1. Urine output has been good. Exam GI: Other: Abdomen is soft and minimally distended. Midline incision is healing well without redness or drainage. He has a rash over the area where the lidocaine patches were placed. Expected mild tenderness around the incision but otherwise seems to be healing well. Objective Data Vital Signs Vital Signs: Vital Signs - 24 hr 01/08/24 12:00 01/08/24 13:04 01/08/24 13:20 Temperature 36.2 C L Pulse Rate 82 82 81 Respiratory Rate 14 18 Blood Pressure 120/68 Pulse Oximetry 95 Oxygen Delivery Fraction of Inspired Oxygen 01/08/24 13:30 01/08/24 16:00 01/08/24 19:58 Temperature 36.8 C Pulse Rate 84 88 88 Respiratory Rate 18 18 18 Blood Pressure 125/79 Pulse Oximetry 95 Oxygen Delivery Fraction of Inspired Oxygen 01/08/24 20:01 01/08/24 20:06 01/08/24 20:00 Temperature Pulse Rate 88 85 Respiratory Rate 18 Blood Pressure Pulse Oximetry 95 Oxygen Delivery Room Air Room Air Fraction of Inspired Oxygen 21 01/08/24 21:09 01/08/24 20:00 01/09/24 02:11 Temperature 37.4 C Pulse Rate 94 96 79 Respiratory Rate 18 18 Blood Pressure 114/70 Pulse Oximetry 95 Oxygen Delivery Fraction of Inspired Oxygen 01/09/24 02:18 01/09/24 06:31 01/09/24 06:30 Temperature 36.3 C L Pulse Rate 81 95 80 Respiratory Rate 18 18 Blood Pressure 131/80 Pulse Oximetry 97 Oxygen Delivery Fraction of Inspired Oxygen 01/09/24 07:09 01/09/24 07:09 01/09/24 07:17 Temperature Pulse Rate 72 70 Respiratory Rate 18 18 Blood Pressure Pulse Oximetry 96 Oxygen Delivery Room Air Fraction of Inspired Oxygen 21 01/09/24 07:53 01/09/24 08:00 Temperature 36.1 C L Pulse Rate 73 Respiratory Rate 18 Blood Pressure 131/80 Pulse Oximetry 97 Oxygen Delivery Room Air Fraction of Inspired Oxygen Intake/Output Intake/Output: Intake & Output 01/06/24 01/07/24 01/08/24 01/09/24 23:59 23:59 23:59 23:59 Intake Total 2800 2450 3630 1230 Output Total 215 1525 Balance 2585 925 3630 1230 Meds/Results Medications: Active Medications Generic Name Dose Route Start Last Admin Trade Name Freq PRN Reason Stop Dose Admin Acetaminophen 1,000 mg 01/06/24 14:56 Acetaminophen 500 Mg Tablet PO Q6H PRN Mild Pain (1-3) or Fever Hydrocodone Bitart/Acetaminophen 1 tab 01/09/24 10:23 Hydrocodone/Acetaminophen (*Crx) 5-325 Mg Tablet PO Q4H PRN Pain Rated 4-6 Albuterol/Ipratropium 3 ml 01/06/24 14:56 01/09/24 07:09 Ipratropium 0.5 Mg/Albuterol Sulfate 2.5 Mg Ampul.Neb 3 Ml INHALATION 3 ml Q6HRT TANNA Administration Diazepam 5 mg 01/09/24 17:00 Diazepam (*Crx) 5 Mg Tablet PO BID TANNA Enoxaparin Sodium 40 mg 01/07/24 09:00 01/09/24 07:56 Enoxaparin 40 Mg/0.4 Ml Syringe SUB-Q 40 mg DAILY TANNA Administration Hydromorphone HCl 1 mg 01/06/24 14:56 01/09/24 08:01 Hydromorphone Hcl Inj (*Crx) 1 Mg/Ml Syr IV PUSH 1 mg Q3H PRN Administration Pain Rated 7-10 Piperacillin/Tazobactam/Dextrose 3.375 gm in 50 mls @ 100 mls/hr 01/06/24 12:00 01/09/24 06:21 Zosyn 3.375 Gm/Ns 50 Ml IVPB 100 mls/hr Q6H ATNNA Administration Metronidazole 500 mg in 100 mls @ 100 mls/hr 01/06/24 09:00 01/09/24 07:57 Flagyl 500 Mg/Iso Soln 100 Ml IVPB 100 mls/hr Q8H TANNA Administration Potassium Chloride/Dextrose/Sod Cl 1,000 mls @ 130 mls/hr 01/07/24 15:40 01/09/24 02:15 Kcl 20 Meq/D5/0.9% Sod Chl IV CONT 130 mls/hr .Q7H42M TANNA Administration Potassium Chloride 100 mls @ 50 mls/hr 01/09/24 10:26 Kcl 20 Meq/Sw 100 Ml IVPB 01/09/24 12:25 ONCE ONE Metoprolol Tartrate 5 mg 01/06/24 13:45 01/09/24 06:31 Metoprolol Tartrate Inj 5 Mg/5 Ml Vial IV PUSH 5 mg Q8HR TANNA Administration Ondansetron HCl 4 mg 01/06/24 06:38 Ondansetron Inj 4 Mg/2 Ml Vial IV PUSH Q4H PRN Nausea Oxycodone HCl 5 mg 01/09/24 10:23 Oxycodone Hcl (*Crx) 5 Mg Tab Ir PO Q4H PRN Pain Rated 7-10 Pantoprazole Sodium 40 mg 01/10/24 09:00 Pantoprazole 40 Mg Tablet PO QAM [facility] Phenol 1 spray 01/07/24 14:43 01/07/24 15:45 Phenol/Sod Pheno [place] Jordan (*Bkc) MUCOUS MEM 1 spray PRN PRN Administration Sore Throat Potassium Chloride 40 meq 01/09/24 10:40 Potassium Chloride 20 Meq Er Tablet PO 01/09/24 10:41 ONCE ONE Radiology Results: ITS Impressions Abdomen/Pelvis CT 01/06/24 06:14 Impression: [id number] pneumoperitoneum is suspicious for bowel perforation in the absence of appropriate recent surgical/procedural history. Correlate clinically. Small bowel obstruction, transition point as detailed above. Extensive inflammatory changes involving distended small bowel loops, with inflammatory change the mesentery and areas of mild wall thickening. Infectious/inflammatory enteritis is a consideration, though of note, the terminal/distal ileum appear essentially unaffected. Small seroma versus abscess in the anterior subcutaneous soft tissues superior to the umbilicus. Case discussed with Dr. Germain at the time of this reading. Labs Labs: Laboratory Results - last 24 hr 01/09/24 05:40 WBC 12.3 H RBC 2.89 L Hgb 9.0 L Hct 28.7 L MCV 99.3 MCH 31.1 MCHC 31.4 L RDW 14.6 H Plt Count 262 MPV 9.4 Immature Gran % (Auto) 0.8 H Neut % (Auto) 83.5 H Lymph % (Auto) 4.[address] [place] % (Auto) 7.7 Eos % (Auto) 3.2 Baso % (Auto) 0.2 Lymph # (Auto) 0.[address] [place] # (Auto) 1.0 H Eos # (Auto) 0.4 H Baso # (Auto) 0.0 Abs Immat Gran (auto) 0.10 H Absolute Neuts (auto) 10.3 H Absolute Nucleated RBC 0.000 Nucleated RBC % 0.0 Sodium 141 Potassium 3.1 L Chloride 113 H Carbon Dioxide 20 L Anion Gap 8 BUN 18 Creatinine 1.70 H Estim Creat Clear Calc 50 Estimated GFR 41 L Glucose 120 H Calcium 7.9 L Phosphorus 2.5 Magnesium 1.7 Total Bilirubin 0.6 AST 26 ALT 21 Alkaline Phosphatase 61 Total Protein 6.0 L Albumin 3.2 L
[2024-01-09] MEDS: KCL 20 MEQ/SW 100 ML 100 ML 50 MEQ IVPB (10:48)
[2024-01-09] MEDS: POTASSIUM CHLORIDE 20 MEQ ER TABLET 40 MEQ PO (10:56)
--- NOTE | 2024-01-09 12:29 | P.CONNP_ITS ---
Assessment and Plan Assessment and plan (1) Acute kidney injury: Onset Date: ~01/09/24 Code(s): N17.9 - Acute kidney failure, unspecified Status: Acute Assessment and Plan: * normal creatinine at baseline and on admission * increased to 1.5mg/dl yesterday and up to 1.7mg/dl today * no critical electrolytes and making reasonable urine output * suspect multifactorial etiology: * possible prerenal factors * VANGIE-I + HCTZ use prior to admission * contrast exposure (CT scan on 01/06/24) * relative hypotension (although no evidence of perioperative or postoperative hypotension) * IV NSAID use (but seems a bit too quick for this) * check urine studies, CPK, and renal ultrasound * ongoing IVFs * follow trend of repeat labs and UOP (2) Small bowel stricture: Code(s): K56.699 - Other intestinal obstruction unspecified as to partial versus complete obstruction Status: Acute Assessment and Plan: * s/p exploratory laparotomy with segmental small bowel resection and [id number] stapled small bowel anastomosis on 01/06/24 * findings noted:strictures of his distal small bowel causing small bowel obstruction and small perforation * Surgery following * on IV antibiotics given small bowel perforation * NG tube out and advancing diet as tolerated (3) Essential (primary) hypertension: Code(s): I10 - Essential (primary) hypertension Status: Chronic Assessment and Plan: * despite history, reasonable control at this time * on IV metoprolol PRN * follow trend of hemodynamics (4) Hypokalemia: Code(s): E87.6 - Hypokalemia Status: Acute Assessment and Plan: * due to NPO status and diminished oral intake * IV replacement as needed * follow trend Discussed with Dr. Flores. I will continue to follow the patient with you while he remains hospitalized and make further recommendations as deemed necessary. Thank you for allowing me to participate in the care of this patient. History of Present Illness Reason for Consult Consult date: 01/09/24 Reason for consult: acute renal failure Chief Complaint Chief complaint: small bowel obstruction,bowel perforation History of Present Illness Narrative: The patient is a 58-year-old male with a past medical history as outlined below who presented to [facility] urgency room with complaints of abdominal pain. Apparently, the night before admission, he was laying in bed and had sudden onset of right shoulder pain in conjunction with left lower quadrant abdominal p ain. This abdominal pain was different than what he had been experiencing since his recent surgery in October of 2023. He described the pain as sharp and severe with no specific alleviating factors and was associated with abdominal bloating and distention. He reported that he felt full at the time and felt as he needed to vomit but was unable to do so. the patient underwent open incarcerated ventral hernia knee repair surgery in late October of this year at [facility] as this hernia was causing a small-bowel obstruction. He tolerated that surgical intervention reasonably well and has been following with surgery during this recovery. He apparently had intermittent right lower quadrant pain and intermittent episodes of nausea and vomiting since surgery but the symptoms would resolve with bowel movements. Given the severity of the pain that he had been having more recently which apparently continued to worsen, he presented to the emergency room for further assessment. Workup and evaluation in the emergency room demonstrated the patient to be hemodynamically stable and afebrile. Routine blood tests were significant for a white blood cell count of 16.9, stable hemoglobin and hematocrit, and a lactic acid of 2.8. His chemistry was essentially unremarkable with normal renal function and stable electrolytes. Given his surgical history, a CT scan of the abdomen pelvis was done which demonstrated a small to moderate pneumoperitoneum suspicious for bowel perforation, small-bowel obstruction with a transition point in the anterior mid abdomen, and Distal small bowel and large bowel decompression with extensive inflammatory changes involving the distended small bowel loops with inflammatory change in the mesentery and areas of mild wall thickening Dr. hackett infectious/in [place] inflammatory enteritis is a consideration although the distal ileum appeared unaffected with a small seroma versus abscess in the anterior subcutaneous soft tissue superior to the umbilicus. The ER physician consulted surgery given the CT scan findings and the patient was subsequently admitted to the hospital under the surgical service for ongoing evaluation and therapy. Labs the next morning demonstrated his lactic acid being somewhat higher in association with tachycardia. He was still complaining of severe abdominal pain that was more generalized along with a sensation of increased bloating/distension. Given his CT scan findings and symptoms on admission, he was taken to the OR for operative intervention. He underwent an exploratory laparotomy with segmental small bowel resection and [id number] stapled small bowel anastomosis on 01/06/24 and tolerated this procedure reasonably well. Since the surgery, he has been slowly improving. Renal consultation was requested due to his acute kidney injury/acute renal failure. On admission, his renal function was well within normal limits but then yesterday his creatinine had antonia to 1.5 mg/dL and subsequently up to 1.7 mg/dL by labs done this morning. In spite of his rising creatinine, he has had stable hemodynamics as well as reasonable urine output without any evidence of critical electrolyte abnormalities. He remains on IV antibiotics given the elevated white blood cell count on presentation as well as the small perforation as well. In spite of his renal dysfunction, he otherwise appears to be doing reasonably well and in no apparent distress. It should be noted the patient has had episodes of acute kidney injury/ acute renal failure in the past including his most recent hospitalization here in October of 2023 but by the time of discharge, his renal function had improved back to baseline. Currently, at the time my visit, he does not appear to be in any acute distress. Review of Systems Review of Systems: As per HPI. [facility] Past Medical History Medical History (Updated 01/09/24 @ 14:00 by Mireya Wells MD) Abnormal EKG Acute kidney injury (~01/09/24) Chronic obstructive pulmonary disease Chronic shortness of breath Essential (primary) hypertension Hypothyroid Incarcerated ventral hernia (~10/2023) Small bowel strangulation (~10/2023) Syncopal episodes Tinea pedis Vitamin D deficiency Surgical History Surgical History History of ventral hernia repair 10/28/2023 - Open incarcerated ventral hernia repair without mesh. (defect = 7 cm) by Dr. Harsh Flores Family History Family History Father Heart disease Mother Thyroid disease Mother Family history of thyroid disease Father Family history of coronary artery disease Hypertension Social History Social History Social History: Patient is . Lives with his in [place]. Patient works for [employer]. Smoking packs per day: 1 Smoking cigarettes per day: 20.0 Years smoked: 40 Smoking pack-years: 40.00 Smoking status: Current every day smoker Second hand tobacco smoke exposure: No Alcohol intake: current Drinks per week: 4 Alcohol use details: social drinker Substance use: never Substance use type: does not use Do You Feel Safe in your Home?: Yes Lack of Transportation: No Lack of Food: Never True Current Housing: I Have Housing Concerned About Future Housing: No Difficulty Paying Gas/Electric Bills: No Difficulty Paying for Meds: YES Currently Unemployed: No Education: High School Diploma/GED Difficulty w/ Childcare or Family Care: No Living arrangements: with family Occupation/Education: occupation Gender identity (if verbalized by the patient): Male Sexual Orientation (if Verbalized by the Patient): Straight or Heterosexual Spiritual care concerns: No Agree to blood products: Yes Meds Home Medications and Allergies Home Medications Medication Instructions Recorded Confirmed Type pravastatin 10 mg tablet 10 mg PO QHS #90 tabs 05/22/23 01/06/24 Rx clotrimazole-betamethasone 1 1 applic topical BID 4 weeks #45 09/21/23 01/06/24 Rx %-0.05 % topical cream grams lisinopril 20 2 tablet PO DAILY #180 tabs 10/06/23 01/06/24 Rx mg-hydrochlorothiazide 12.5 mg tablet albuterol sulfate 90 mcg/actuation 2 inh inhalation Q4H PRN shortness 10/07/23 01/06/24 Rx aerosol inhaler (Ventolin HFA) of breath or wheezing #8.5 grams levothyroxine 100 mcg tablet 100 mcg PO DAILY #90 tabs 10/12/23 01/06/24 Rx fluticasone fur. 100 mcg-umeclid 1 inh inhalation HS 10/29/23 01/06/24 History 62.5 mcg-vilant 25 mcg inhalat.powder (Trelegy Ellipta) Allergies Allergy/AdvReac Type Severity Reaction Status Date / Time terbinafine Allergy Mild Hives Verified 01/06/24 10:06 Vital Signs Vital Signs Temp Pulse Resp BP Pulse Ox O2 Del Method FiO2 01/09/24 12:00 97.9 F 83 18 131/78 96 01/09/24 08:00 97.1 F L 73 18 131/80 97 01/09/24 08:00 Room Air 01/09/24 07:53 97.0 F L 73 18 131/80 97 01/09/24 07:17 70 18 01/09/24 07:09 72 18 01/09/24 07:09 96 Room Air 21 01/09/24 06:30 97.4 F L 80 18 131/80 97 01/09/24 06:31 95 01/09/24 02:18 81 18 01/09/24 02:11 79 18 01/08/24 20:00 99.4 F 96 18 114/70 95 01/08/24 21:09 94 01/08/24 20:00 Room Air 01/08/24 20:06 85 18 01/08/24 20:01 88 95 Room Air 21 01/08/24 19:58 88 18 01/08/24 16:00 98.2 F 88 18 125/79 95 Exam Narrative: GENERAL APPEARANCE: well developed well nourished male in no acute distress HEENT: normocephalic, atraumatic, normal conjunctiva and sclera, nares patient NECK: no lymphadenopathy, thyromegaly, or JVD MOUTH: normal lips, teeth, and gums CARDIOVASCULAR: RRR, normal S1 and S2, no rub detected RESPIRATORY: clear to auscultation bilaterally ABDOMEN: soft with mild distension; mild TTP around incision site; +BS EXTREMITIES: no evidence of cyanosis, clubbing, or edema NEUROLOGICAL: alert and oriented x 3; CN II - XII intact bilaterally; no focal deficits noted Results Lab Results 01/09/24 05:40 01/09/24 05:40 Lab results: Most recent lab results Calcium 7.9 mg/dL (8.4-10.2) L 01/09/24 05:40 Phosphorus 2.5 mg/dL (2.5-4.5) 01/09/24 05:40 Magnesium 1.7 mg/dL (1.6-2.3) 01/09/24 05:40
--- NOTE | 2024-01-09 13:49 | PCPTNOTE ---
Patient refused therapy this date stating he is independent and does not need therapy.
[2024-01-09] MEDS: diazePAM (*CRX) 5 MG TABLET PO (16:51)
[2024-01-09] MEDS: HYDROcodone/acetaminophen (*CRX) 5-325 MG TABLET 1 TAB PO (20:42)
[2024-01-10] VITALS (14 sets, daily range): BP systolic 128–146; BP diastolic 80–86; PULSE 62–93; RESP 13–22; TEMP 37.1–37.6; O2SAT 97–99
[2024-01-10] MEDS: metroNIDAZOLE 500 MG/ISO 100ML 500 MG/100 ML BAG 100 MG IVPB ×3 (00:55→16:59)
[2024-01-10] MEDS: IPRATROPIUM 0.5 MG/ALBUTEROL SULFATE 2.5 MG AMPUL.NEB 3 ML INHALATION ×4 (01:36→20:43)
[2024-01-10] MEDS: KCL 20 MEQ/D5/0.9% SOD CHL 1,000 ML 130 ML IV CONT (03:38)
[2024-01-10] MEDS: HYDROmorphone HCL INJ (*CRX) 1 MG/ML SYR IV PUSH ×2 (03:39→08:52)
[2024-01-10] MEDS: PIPERACILLN/TAZ 3.375GM/NS50ML 3.375 GM/50 ML BAG IVPB ×3 (05:29→17:02)
[2024-01-10] MEDS: METOPROLOL TARTRATE INJ 5 MG/5 ML VIAL IV PUSH ×3 (05:30→20:49)
[2024-01-10 05:33] LABS: Basophils Percent Auto 0.2 % (0.2-1.2); Eosinophils Absolute Auto 0.4 K/mm3 (0-0.3); Eosinophils Percent Auto 3.2 % (0-4.4); Hematocrit 27.6 % (42.0-52.0); Immature Granulocyte Absolute 0.15 K/mm3 (0.00-0.031); Immature Granulocyte Percent A 1.2 % (0-0.5); Lymphocytes Absolute Auto 0.81 K/mm3 (0.9-3.2); Lymphocytes Percent Auto 6.7 % (18.3-44.2); Mean Corpuscular HGB Conc 32.6 g/dl (32-36); Mean Corpuscular Hemoglobin 32.3 pg (26-34); Mean Corpuscular Volume 98.9 fl (80-100); Mean Platelet Volume 8.8 fl (7.4-10.4); Monocytes Absolute Auto 1.2 K/mm3 (0.1-0.6); Monocytes Percent Auto 9.6 % (2.6-8.5); Neutrophils Absolute Auto 9.6 K/mm3 (1.3-6.7); Neutrophils Percent Auto 79.1 % (45.5-73.1); Platelet Count Result 243 k/mm3 (150-375); Red Blood Count 2.79 M/mm3 (4.6-6.20); Red Cell Distribution Width 14.5 % (11.5-14.5); White Blood Count 12.1 K/mm3 (4.5-10.0)
[2024-01-10 05:47] LABS: Alanine Aminotransferase 18 U/L (6-50); Alkaline Phosphatase 65 U/L (38-126); Anion Gap 7 mmol/L (4-12); Aspartate Amino Transferase 25 U/L (17-59); Bilirubin,Total 0.4 mg/dL (0.2-1.3); Blood Urea Nitrogen 13 mg/dL (9-20); Calcium 7.6 mg/dL (8.4-10.2); Carbon Dioxide 21 mmol/L (22-30); Chloride 113 mmol/L (98-107); Creatine Kinase 192 U/L (55-170); Estimated CRCL calculation 65 ml/min; Estimated Glomerular Filt Rate 57; Glucose 122 mg/dL (65-110); Potassium 3.2 mmol/L (3.4-5.0); Sodium 141 mmol/L (137-145)
[2024-01-10] MEDS: diazePAM (*CRX) 5 MG TABLET PO ×2 (08:42→16:57)
[2024-01-10] MEDS: PANTOPRAZOLE 40 MG TABLET PO (08:42)
[2024-01-10] MEDS: ENOXAPARIN 40 MG/0.4 ML SYRINGE SUB-Q (08:52)
[2024-01-10] MEDS: POTASSIUM CHLORIDE 20 MEQ PACKET (FOR LIQUID) 40 MEQ PO ×2 (08:52→11:53)
--- NOTE | 2024-01-10 10:47 | P.PN_ITS ---
Progress Note: A&P Assessment and Plan (1) Small bowel stricture: Code(s): K56.699 - Other intestinal obstruction unspecified as to partial versus complete obstruction Status: Acute Assessment and Plan: Postop day 4. After exploratory laparotomy and segmental distal small-bowel resection for small-bowel strictures. Continue IV antibiotics for now. Continue just full liquids with some Ensure supplements for now. Continue supportive management and ambulating. Incentive spirometry for pulmonary toilet and the prophylaxis with Lovenox. Nephrology is following for his kidney function but it seems to be improving. We will decrease his IV fluids and 90cc/hour. Stop his Dilaudid and manage his pain with oral narcotics. (2) Acute kidney injury: Onset Date: ~01/09/24 Code(s): N17.9 - Acute kidney failure, unspecified Status: Acute Assessment and Plan: Nephrology following and managing. Subjective Date/time seen: 01/10/24 10:47 Interval history: Patient without acute changes overnight. Passing flatus but still no bowel movement. Minimal nausea. Tolerated full liquids. Feels a little bit more bloated to this morning but no emesis. White blood cell count is still stable 12,000. No fever. Nephrology saw the patient feels that the acute renal insufficiency is likely multifactorial but due to recent contrast load and fluid shifts and acute illness. Nephrotoxic medications have been held and supportive management is anticipated. Patient getting up to ambulate without difficulty. Exam GI: Other: Abdomen is soft and mildly distended. Decreasing tenderness around his midline incision. The midline incision is healing well without redness or drainage. He does have contact rash in the distribution of the pain lidocaine patch on his bilateral abdominal wall. The patch is been removed. The rash is not particularly itchy. Objective Data Vital Signs Vital Signs: Vital Signs - 24 hr 01/09/24 12:00 01/09/24 13:43 01/09/24 13:43 Temperature 36.6 C Pulse Rate 83 84 76 Respiratory Rate 18 18 Blood Pressure 131/78 Pulse Oximetry 96 Oxygen Delivery Fraction of Inspired Oxygen 01/09/24 13:51 01/09/24 16:00 01/09/24 19:51 Temperature 36.4 C L Pulse Rate 72 83 86 Respiratory Rate 18 18 18 Blood Pressure 131/82 Pulse Oximetry 98 Oxygen Delivery Fraction of Inspired Oxygen 01/09/24 19:53 01/09/24 19:59 01/09/24 20:24 Temperature 37.2 C Pulse Rate 87 89 Respiratory Rate 18 16 Blood Pressure 125/72 Pulse Oximetry 94 100 Oxygen Delivery Room Air Fraction of Inspired Oxygen 21 01/09/24 21:24 01/09/24 20:00 01/10/24 01:36 Temperature Pulse Rate 89 93 Respiratory Rate 21 H Blood Pressure Pulse Oximetry Oxygen Delivery Room Air Fraction of Inspired Oxygen 01/10/24 01:46 01/10/24 05:30 01/10/24 05:39 Temperature 37.1 C Pulse Rate 90 74 79 Respiratory Rate 20 13 Blood Pressure 128/86 Pulse Oximetry 98 Oxygen Delivery Fraction of Inspired Oxygen 01/10/24 07:40 01/10/24 07:40 01/10/24 07:51 Temperature Pulse Rate 76 76 80 Respiratory Rate 18 18 18 Blood Pressure Pulse Oximetry 99 Oxygen Delivery Room Air Fraction of Inspired Oxygen 21 01/10/24 08:00 Temperature Pulse Rate 79 Respiratory Rate 13 Blood Pressure Pulse Oximetry 98 Oxygen Delivery Room Air Fraction of Inspired Oxygen 21 Intake/Output Intake/Output: Intake & Output 01/07/24 01/08/24 01/09/24 01/10/24 23:59 23:59 23:59 23:59 Intake Total 2450 3630 6328.2 3198.0 Output Total 1525 Balance 925 3630 6328.2 3198.0 Meds/Results Medications: Active Medications Generic Name Dose Route Start Last Admin Trade Name Freq PRN Reason Stop Dose Admin Acetaminophen 1,000 mg 01/06/24 14:56 Acetaminophen 500 Mg Tablet PO Q6H PRN Mild Pain (1-3) or Fever Hydrocodone Bitart/Acetaminophen 1 tab 01/09/24 10:23 01/09/24 20:42 Hydrocodone/Acetaminophen (*Crx) 5-325 Mg Tablet PO 1 tab Q4H PRN Administration Pain Rated 4-6 Albuterol/Ipratropium 3 ml 01/06/24 14:56 01/10/24 07:40 Ipratropium 0.5 Mg/Albuterol Sulfate 2.5 Mg Ampul.Neb 3 Ml INHALATION 3 ml Q6HRT TANNA Administration Diazepam 5 mg 01/09/24 17:00 01/10/24 08:42 Diazepam (*Crx) 5 Mg Tablet PO 5 mg BID TANNA Administration Enoxaparin Sodium 40 mg 01/07/24 09:00 01/10/24 08:52 Enoxaparin 40 Mg/0.4 Ml Syringe SUB-Q 40 mg DAILY TANNA Administration Piperacillin/Tazobactam/Dextrose 3.375 gm in 50 mls @ 100 mls/hr 01/06/24 12:00 01/10/24 06:00 Zosyn 3.375 Gm/Ns 50 Ml IVPB Infused Q6H TANNA Infusion Metronidazole 500 mg in 100 mls @ 100 mls/hr 01/06/24 09:00 01/10/24 08:43 Flagyl 500 Mg/Iso Soln 100 Ml IVPB 100 mls/hr Q8H TANNA Administration Potassium Chloride/Dextrose/Sod Cl 1,000 mls @ 90 mls/hr 01/07/24 15:40 01/10/24 06:00 Kcl 20 Meq/D5/0.9% Sod Chl IV CONT 130 mls/hr .Q11H7M TANNA Infusion Metoprolol Tartrate 5 mg 01/06/24 13:45 01/10/24 05:30 Metoprolol Tartrate Inj 5 Mg/5 Ml Vial IV PUSH 5 mg Q8HR TANNA Administration Ondansetron HCl 4 mg 01/06/24 06:38 Ondansetron Inj 4 Mg/2 Ml Vial IV PUSH Q4H PRN Nausea Oxycodone HCl 5 mg 01/09/24 10:23 Oxycodone Hcl (*Crx) 5 Mg Tab Ir PO Q4H PRN Pain Rated 7-10 Pantoprazole Sodium 40 mg 01/10/24 09:00 01/10/24 08:42 Pantoprazole 40 Mg Tablet PO 40 mg QAM TANNA Administration Phenol 1 spray 01/07/24 14:43 01/07/24 15:45 Phenol/Sod Pheno [place] (*Bkc) MUCOUS MEM 1 spray PRN PRN Administration Sore Throat Potassium Chloride 40 meq 01/10/24 12:00 Potassium Chloride 20 Meq Packet (For Liquid) PO 01/10/24 12:01 ONCE ONE Radiology Results: ITS Impressions Abdomen/Pelvis CT 01/06/24 06:14 Impression: [id number] pneumoperitoneum is suspicious for bowel perforation in the absence of appropriate recent surgical/procedural history. Correlate clinically. Small bowel obstruction, transition point as detailed above. Extensive inflammatory changes involving distended small bowel loops, with inflammatory change the mesentery and areas of mild wall thickening. Infec tious/inflammatory enteritis is a consideration, though of note, the terminal/distal ileum appear essentially unaffected. Small seroma versus abscess in the anterior subcutaneous soft tissues superior to the umbilicus. Case discussed with Dr. Germain at the time of this reading. Renal Ultrasound 01/09/24 19:24 IMPRESSION: Unremarkable renal sonogram findings. Labs Labs: Laboratory Results - last 24 hr 01/08/24 01/10/24 00:00 05:17 WBC 12.1 H RBC 2.79 L Hgb 9.0 L Hct 27.6 L MCV 98.9 MCH 32.3 MCHC 32.6 RDW 14.5 Plt Count 243 MPV 8.8 Immature Gran % (Auto) 1.2 H Neut % (Auto) 79.1 H Lymph % (Auto) 6.7 L [place] % (Auto) 9.6 H Eos % (Auto) 3.2 Baso % (Auto) 0.2 Lymph # (Auto) 0.81 L [place] # (Auto) 1.2 H Eos # (Auto) 0.4 H Baso # (Auto) 0.0 Abs Immat Gran (auto) 0.15 H Absolute Neuts (auto) 9.6 H Absolute Nucleated RBC 0.000 Nucleated RBC % 0.0 Sodium 141 Potassium 3.2 L Chloride 113 H Carbon Dioxide 21 L Anion Gap 7 BUN 13 D Creatinine 1.30 Estim Creat Clear Calc 65 Estimated GFR 57 L Glucose 122 H Calcium 7.6 L Total Bilirubin 0.4 AST 25 ALT 18 Alkaline Phosphatase 65 Total Creatine Kinase 192 H Total Protein 6.0 L Albumin 3.0 L Urine Color Cancelled Urine Appearance Cancelled Urine pH Cancelled Ur Specific [place] Cancelled Urine Protein Cancelled Urine Glucose (UA) Cancelled Urine Ketones Cancelled Ur Blood (Man) Cancelled Urine Nitrate Cancelled Urine Bilirubin Cancelled Urine Urobilinogen Cancelled Add Ur Microanalysis Cancelled Leukocyte Esterase Rfl Cancelled Urine RBC Cancelled Urine WBC Cancelled Urine WBC Clumps Cancelled Ur Squamous Epith Cells Cancelled Ur Transition Epith Cell Cancelled Ur Renal Epithelial Cell Cancelled [place] Biurate Crystals Cancelled Calcium Carbonate Cryst Cancelled Calcium Phosphate Cryst Cancelled Calcium Oxalate Crystal Cancelled Leucine Crystals Cancelled Cystine Crystals Cancelled Uric Acid Crystals Cancelled Triple Phos Crystals Cancelled Sulfonamide Crystals Cancelled Cholesterol Crystals Cancelled [place] Crystals Cancelled Tyrosine Crystals Cancelled Hippuric Acid Crystals Cancelled Bilirubin Crystals Cancelled Other Crystals Cancelled Amorphous Sediment Cancelled Other Sediment Cancelled Urine Bacteria Cancelled Urine Casts Cancelled Cellular Casts Cancelled Epithelial Casts Cancelled Fatty Casts Cancelled Hyaline Casts Cancelled Granular Casts Cancelled Waxy Casts Cancelled Broad Casts Cancelled RBC Casts Cancelled WBC Casts Cancelled Urine Starch Cancelled Urine Mucus Cancelled Urine Trichomonas Cancelled Urine Yeast (Budding) Cancelled Ur Oval Fat Bodies Cancelled Sperm Presence Cancelled
--- NOTE | 2024-01-10 11:33 | P.PNNP_ITS ---
Progress Note: A&P Assessment and Plan (1) Acute kidney injury: Onset Date: ~01/09/24 Code(s): N17.9 - Acute kidney failure, unspecified Status: Acute Assessment and Plan: * improvement noted * normal creatinine at baseline and on admission * increased to 1.5mg/dl on 01/07 and up to 1.7mg/dl on 01/08 * no critical electrolytes and making reasonable urine output * suspect multifactorial etiology: * possible prerenal factors * VANGEI-I + HCTZ use prior to admission * contrast exposure (CT scan on 01/06/24) * relative hypotension (although no evidence of perioperative or post operative hypotension) * IV NSAID use (but seems a bit too quick for this) * on IVFs - wean off as tolerated * evaluation to date noted: * renal ultrasound normal * CPK mildly elevated (but not enough to affect kidney function) * UA/urine studies still pending(?) * lisinopril/HCTZ on hold * follow trend of repeat labs and UOP (2) Small bowel stricture: Code(s): K56.699 - Other intestinal obstruction unspecified as to partial versus complete obstruction Status: Acute Assessment and Plan: * s/p exploratory laparotomy with segmental small bowel resection and [id number] stapled small bowel anastomosis on 01/06/24 * findings noted:strictures of his distal small bowel causing small bowel obstruction and small perforation * Surgery following * on IV antibiotics given small bowel perforation * NG tube out and advancing diet as tolerated * pain control (3) Essential (primary) hypertension: Code(s): I10 - Essential (primary) hypertension Status: Chronic Assessment and Plan: * despite history, reasonable control at this time * on IV metoprolol PRN * suspect pain medication indirectly helping * follow trend of hemodynamics (4) Hypokalemia: Code(s): E87.6 - Hypokalemia Status: Acute Assessment and Plan: * due to previous NPO status, diminished oral intake, and previous hypomagnesemia * oral replacement as needed * check magnesium intermittently * follow trend Will continue to follow. Subjective Date/time seen: 01/10/24 11:33 Interval history: Follow-up for acute kidney injury/acute renal failure. Renal function/creatinine appears to be improving with supportive therapy; no apparent distress noted at the time of my visit; tolerating full liquid diet without any issues or problems; no nausea or vomiting but feels a little bloated currently; no events overnight or earlier this morning. Exam Narrative: General: WD/WN male in NAD Heart: normal S1 and S2; no rub Lungs: clear to auscultation Abdomen: soft, mild distension and associated TTP, positive bowel sounds Extremities: no cyanosis or clubbing; no edema Skin: warm and dry Objective Data Vital Signs Vital Signs: Vital Signs Temp Pulse Resp BP Pulse Ox O2 Del Method FiO2 01/10/24 08:00 79 13 98 Room Air 21 01/10/24 07:51 80 18 01/10/24 07:40 76 18 01/10/24 07:40 76 18 99 Room Air 21 01/10/24 05:39 98.8 F 79 13 128/86 98 01/10/24 05:30 74 01/10/24 01:46 90 20 01/10/24 01:36 93 21 H 01/09/24 20:00 Room Air 01/09/24 21:24 89 01/09/24 20:24 98.9 F 89 16 125/72 100 01/09/24 19:59 87 18 01/09/24 19:53 94 Room Air 21 01/09/24 19:51 86 18 01/09/24 16:00 97.5 F L 83 18 131/82 98 01/09/24 13:51 72 18 01/09/24 13:43 76 18 01/09/24 13:43 84 01/09/24 12:00 97.9 F 83 18 131/78 96 Intake/Output Intake/Output: Intake & Output 01/07/24 01/08/24 01/09/24 01/10/24 23:59 23:59 23:59 23:59 Intake Total 2450 3630 6328.2 3976.2 Output Total 1525 Balance 925 3630 6328.2 3976.2 Meds/Results Medications: Active Medications Generic Name Dose Route Start Last Admin Trade Name Freq PRN Reason Stop Dose Admin Acetaminophen 1,000 mg 01/06/24 14:56 Acetaminophen 500 Mg Tablet PO Q6H PRN Mild Pain (1-3) or Fever Hydrocodone Bitart/Acetaminophen 1 tab 01/09/24 10:23 01/09/24 20:42 Hydrocodone/Acetaminophen (*Crx) 5-325 Mg Tablet PO 1 tab Q4H PRN Administration Pain Rated 4-6 Albuterol/Ipratropium 3 ml 01/06/24 14:56 01/10/24 07:40 Ipratropium 0.5 Mg/Albuterol Sulfate 2.5 Mg Ampul.Neb 3 Ml INHALATION 3 ml Q6HRT TANNA Administration Diazepam 5 mg 01/09/24 17:00 01/10/24 08:42 Diazepam (*Crx) 5 Mg Tablet PO 5 mg BID TANNA Administration Enoxaparin Sodium 40 mg 01/07/24 09:00 01/10/24 08:52 Enoxaparin 40 Mg/0.4 Ml Syringe SUB-Q 40 mg DAILY TANNA Administration Piperacillin/Tazobactam/Dextrose 3.375 gm in 50 mls @ 100 mls/hr 01/06/24 12:00 01/10/24 06:00 Zosyn 3.375 Gm/Ns 50 Ml IVPB Infused Q6H TANNA Infusion Metronidazole 500 mg in 100 mls @ 100 mls/hr 01/06/24 09:00 01/10/24 09:43 Flagyl 500 Mg/Iso Soln 100 Ml IVPB Infused Q8H TANNA Infusion Potassium Chloride/Dextrose/Sod Cl 1,000 mls @ 90 mls/hr 01/07/24 15:40 01/10/24 11:13 Kcl 20 Meq/D5/0.9% Sod Chl IV CONT 90 mls/hr .Q11H7M TANNA Infusion Metoprolol Tartrate 5 mg 01/06/24 13:45 01/10/24 05:30 Metoprolol Tartrate Inj 5 Mg/5 Ml Vial IV PUSH 5 mg Q8HR TANNA Administration Ondansetron HCl 4 mg 01/06/24 06:38 Ondansetron Inj 4 Mg/2 Ml Vial IV PUSH Q4H PRN Nausea Oxycodone HCl 5 mg 01/09/24 10:23 Oxycodone Hcl (*Crx) 5 Mg Tab Ir PO Q4H PRN Pain Rated 7-10 Pantoprazole Sodium 40 mg 01/10/24 09:00 01/10/24 08:42 Pantoprazole 40 Mg Tablet PO 40 mg QAM TANNA Administration Phenol 1 spray 01/07/24 14:43 01/07/24 15:45 Phenol/Sod Pheno [place] (*Bkc) MUCOUS MEM 1 spray PRN PRN Administration Sore Throat Potassium Chloride 40 meq 01/10/24 12:00 Potassium Chloride 20 Meq Packet (For Liquid) PO 01/10/24 12:01 ONCE ONE Radiology Results: ITS Impressions Abdomen/Pelvis CT 01/06/24 06:14 Impression: Sgumd-[id number] pneumoperitoneum is suspicious for bowel perforation in the absence of appropriate recent surgical/procedural history. Correlate clinically. Small bowel obstruction, transition point as detailed above. Extensive inflammatory changes involving distended small bowel loops, with inflammatory change the mesentery and areas of mild wall thickening. Infectious/inflammatory enteritis is a consideration, though of note, the terminal/distal ileum appear essentially unaffected. Small seroma versus abscess in the anterior subcutaneous soft tissues superior to the umbilicus. Case discussed with Dr. Germain at the time of this reading. Renal Ultrasound 01/09/24 19:24 IMPRESSION: Unremarkable renal sonogram findings. Labs Labs: Laboratory Tests 01/10/24 05:17 01/10/24 05:17 Calcium 7.6 L Total Bilirubin 0.4 AST 25 ALT 18 Alkaline Phosphatase 65 Total Creatine Kinase 192 H Total Protein 6.0 L Albumin 3.0 L
[2024-01-10] MEDS: POTASSIUM CHLORIDE 20 MEQ ER TABLET 40 MEQ PO (11:52)
[2024-01-10] MEDS: oxyCODONE HCL (*CRX) 5 MG TAB IR PO ×3 (13:03→20:49)
[2024-01-10 14:15] LABS: Add Urine Microscopic? YES; Appearance Urine Clear (Clear); Bacteria Urine None Seen /hpf; Bilirubin Urine Negative (Negative); Blood Urine Negative (Negative); Color Urine Dark Yellow (Yellow); Glucose Urine UA Trace mg/dL (Negative); Ketones Urine Trace mg/dL (Negative); Leukocyte Esterase Ur 1+ LEU/UL (Negative); Need Manual Microscopic Reviewed; Nitrate Urine Negative (Negative); Protein Urine 1+ mg/dL (Negative); RBC Urine 0-2 /hpf (0-2); Specific Grav Ur 1.027 (1.001-1.035); Squamous Epithelial Cell Urine Moderate /hpf (Few); WBC Urine 0-5 /hpf (0-3); pH Urine 5.5 (5.0-9.0)
[2024-01-10 14:17] LABS: Creatinine Urine 208.5 mg/dL; Total Protein Urine Random 63 mg/dL; Urea Random Urine 666 MG/DL
[2024-01-10 14:19] LABS: Sodium Urine Random 76 meq/L
[2024-01-10 14:47] LABS: Eosinophil Urine None Seen % (None Seen); Urine Eos QC 2nd Tech Confirmed
[2024-01-10] MEDS: KCL 20 MEQ/D5/0.9% SOD CHL 1,000 ML 90 ML IV CONT (15:27)
[2024-01-11] VITALS (15 sets, daily range): BP systolic 126–138; BP diastolic 69–74; PULSE 63–100; RESP 16–20; TEMP 36.3–37.1; O2SAT 96–100
[2024-01-11] MEDS: metroNIDAZOLE 500 MG/ISO 100ML 500 MG/100 ML BAG 100 MG IVPB ×2 (00:21→09:56)
[2024-01-11] MEDS: KCL 20 MEQ/D5/0.9% SOD CHL 1,000 ML 90 ML IV CONT (00:21)
[2024-01-11] MEDS: PIPERACILLN/TAZ 3.375GM/NS50ML 3.375 GM/50 ML BAG IVPB ×3 (00:21→11:35)
[2024-01-11] MEDS: oxyCODONE HCL (*CRX) 5 MG TAB IR PO ×2 (00:26→05:09)
[2024-01-11] MEDS: IPRATROPIUM 0.5 MG/ALBUTEROL SULFATE 2.5 MG AMPUL.NEB 3 ML INHALATION ×4 (03:09→20:39)
[2024-01-11] MEDS: METOPROLOL TARTRATE INJ 5 MG/5 ML VIAL IV PUSH ×3 (05:09→21:18)
[2024-01-11 06:15] LABS: Basophils Percent Auto 0.2 % (0.2-1.2); Eosinophils Absolute Auto 0.4 K/mm3 (0-0.3); Eosinophils Percent Auto 3.4 % (0-4.4); Hematocrit 26.5 % (42.0-52.0); Hemoglobin 8.4 g/dL (14.0-18.0); Immature Granulocyte Absolute 0.26 K/mm3 (0.00-0.031); Immature Granulocyte Percent A 2.4 % (0-0.5); Lymphocytes Absolute Auto 1.16 K/mm3 (0.9-3.2); Lymphocytes Percent Auto 10.8 % (18.3-44.2); Mean Corpuscular HGB Conc 31.7 g/dl (32-36); Mean Corpuscular Hemoglobin 31.7 pg (26-34); Mean Platelet Volume 8.9 fl (7.4-10.4); Monocytes Absolute Auto 1.1 K/mm3 (0.1-0.6); Monocytes Percent Auto 10.6 % (2.6-8.5); Neutrophils Absolute Auto 7.8 K/mm3 (1.3-6.7); Neutrophils Percent Auto 72.6 % (45.5-73.1); Platelet Count Result 237 k/mm3 (150-375); Red Blood Count 2.65 M/mm3 (4.6-6.20); Red Cell Distribution Width 14.7 % (11.5-14.5); White Blood Count 10.7 K/mm3 (4.5-10.0)
[2024-01-11 06:38] LABS: Anion Gap 5 mmol/L (4-12); Blood Urea Nitrogen 10 mg/dL (9-20); Calcium 7.8 mg/dL (8.4-10.2); Carbon Dioxide 22 mmol/L (22-30); Chloride 112 mmol/L (98-107); Estimated CRCL calculation 91 ml/min; Estimated Glomerular Filt Rate > 60; Glucose 119 mg/dL (65-110); Magnesium 1.3 mg/dL (1.6-2.3); Phosphorus 2.9 mg/dL (2.5-4.5); Potassium 3.7 mmol/L (3.4-5.0); Sodium 139 mmol/L (137-145)
[2024-01-11 06:39] LABS: Alanine Aminotransferase 15 U/L (6-50); Albumin Level 2.8 g/dL (3.5-5.1); Alkaline Phosphatase 49 U/L (38-126); Aspartate Amino Transferase 25 U/L (17-59); Bilirubin,Total 0.4 mg/dL (0.2-1.3)
[2024-01-11] MEDS: MAGNESIUM SULF 2 GM/WATER 50ML 2 GM/50 ML BAG IVPB (07:34)
[2024-01-11] MEDS: oxyCODONE/ACETAMINOPHEN (*CRX) 10-325 MG TABLET 1 TAB PO ×3 (08:41→20:35)
[2024-01-11] MEDS: diazePAM (*CRX) 5 MG TABLET PO ×2 (09:06→16:23)
[2024-01-11] MEDS: PANTOPRAZOLE 40 MG TABLET PO (09:06)
[2024-01-11] MEDS: ENOXAPARIN 40 MG/0.4 ML SYRINGE SUB-Q (09:09)
--- NOTE | 2024-01-11 11:05 | PCNFU ---
Nutrition Follow-Up Complete: Moderate protein calorie malnutrition related to inadequate energy intake for greater than 1 month due to altered GI function and noted a -11% weight loss x 2 months. Goal:Diet order Pt meeting goal. New goal of continued diet advancement with tolerance Pt current nutrition is Full liquids. Nutrition recommendation: Ensure Enlive daily, chocolate flavor. Advance diet when appropriate Last recorded weight is 102.3 kg. Bowel Motility: No BM, pt states they are going to try a suppository Labs Reviewed: Hgb:8.4, HCT:26.5, Alb:2.8 Meds Noted: lovenox, zofran, protonix, KCL Skin: no skin issues Additional Notes: Pt diet advanced to full liquids, pt tolerating well, but not BM yet. Agreed to Ensure Enlive, chocolate for additional calories. Advance diet as tolerated Monitor for diet orders, plan of care, wt, labs. Follow up in 3 days.
--- NOTE | 2024-01-11 11:08 | P.PNNP_ITS ---
Progress Note: A&P Assessment and Plan (1) Acute kidney injury: Onset Date: ~01/09/24 Code(s): N17.9 - Acute kidney failure, unspecified Status: Acute Assessment and Plan: * improvement noted if not back to baseline * normal creatinine at baseline and on admission * increased to 1.5mg/dl on 01/07 and up to 1.7mg/dl on 01/08 * no critical electrolytes and making reasonable urine output * suspect multifactorial etiology: * possible prerenal factors * VANGIE-I + HCTZ use prior to admission * contrast exposure (CT scan on 01/06/24) * relative hypotension (although no evidence of perioperative or postoperative hypotension) * IV NSAID use (but seems a bit too quick for this) * on IVFs - wean off as tolerated * evaluation to date noted: * renal ultrasound normal * CPK mildly elevated (but not enough to affect kidney function) * UA without infection * urine eosinophils negataive * urine electrolytes pre-renal * lisinopril/HCTZ on hold * follow trend of repeat labs and UOP (2) Small bowel stricture: Code(s): K56.699 - Other intestinal obstruction unspecified as to partial versus complete obstruction Status: Acute Assessment and Plan: * s/p exploratory laparotomy with segmental small bowel resection and [id number] stapled small bowel anastomosis on 01/06/24 * findings noted:strictures of his distal small bowel causing small bowel obstruction and small perforation * Surgery following * on IV antibiotics given small bowel perforation * NG tube out and advancing diet as tolerated * pain control (3) Essential (primary) hypertension: Code(s): I10 - Essential (primary) hypertension Status: Chronic Assessment and Plan: * despite history, reasonable control at this time * on IV metoprolol PRN * suspect pain medication indirectly helping * follow trend of hemodynamics (4) Hypokalemia: Code(s): E87.6 - Hypokalemia Status: Acute Assessment and Plan: * due to previous NPO status, diminished oral intake, and previous hypom agnesemia * oral replacement as needed * check magnesium intermittently * follow trend Not much else to add -- will continue to follow from a distance. Subjective Date/time seen: 01/11/24 11:08 Interval history: Follow-up for acute kidney injury/acute renal failure. Renal function/creatinine appears has normalized/back to baseline with ongoing supportive therapy/interventions; otherwise feels reasonably well at the time of my visit; no apparent distress noted; tolerating diet without any issues or problems. Exam Narrative: General: WD/WN male in NAD Heart: normal S1 and S2; no rub Lungs: clear to auscultation Abdomen: soft, mild distension and associated TTP, positive bowel sounds Extremities: no cyanosis or clubbing; no edema Skin: warm and intact Objective Data Vital Signs Vital Signs: Vital Signs Temp Pulse Resp BP Pulse Ox O2 Del Method FiO2 01/11/24 08:22 63 20 01/11/24 08:16 66 20 01/11/24 08:16 96 Room Air 21 01/11/24 08:00 100 Room Air 01/11/24 06:00 97.4 F L 66 20 126/74 100 01/11/24 05:09 98 01/11/24 03:18 94 20 01/11/24 03:11 100 20 01/10/24 20:45 Room Air 01/10/24 21:31 99.4 F 84 22 H 146/86 H 98 01/10/24 20:53 71 18 01/10/24 20:49 62 01/10/24 20:44 62 18 01/10/24 20:44 97 Room Air 01/10/24 14:00 99.6 F 68 18 138/80 97 01/10/24 14:13 66 18 01/10/24 14:06 68 18 Intake/Output Intake/Output: Intake & Output 01/08/24 01/09/24 01/10/24 01/11/24 23:59 23:59 23:59 23:59 Intake Total 3630 6328.2 5097.5 2340 Output Total 600 Balance 3630 6328.2 4497.5 2340 Meds/Results Medications: Active Medications Generic Name Dose Route Start Last Admin Trade Name Freq PRN Reason Stop Dose Admin Acetaminophen 1,000 mg 01/06/24 14:56 Acetaminophen 500 Mg Tablet PO Q6H PRN Mild Pain (1-3) or Fever Albuterol/Ipratropium 3 ml 01/06/24 14:56 01/11/24 08:16 Ipratropium 0.5 Mg/Albuterol Sulfate 2.5 Mg Ampul.Neb 3 Ml INHALATION 3 ml Q6HRT TANNA Administration Diazepam 5 mg 01/09/24 17:00 01/11/24 09:06 Diazepam (*Crx) 5 Mg Tablet PO 5 mg BID TANNA Administration Enoxaparin Sodium 40 mg 01/07/24 09:00 01/11/24 09:09 Enoxaparin 40 Mg/0.4 Ml Syringe SUB-Q 40 mg DAILY TANNA Administration Piperacillin/Tazobactam/Dextrose 3.375 gm in 50 mls @ 100 mls/hr 01/06/24 12:00 01/11/24 11:35 Zosyn 3.375 Gm/Ns 50 Ml IVPB 100 mls/hr Q6H TANNA Administration Metronidazole 500 mg in 100 mls @ 100 mls/hr 01/06/24 09:00 01/11/24 09:56 Flagyl 500 Mg/Iso Soln 100 Ml IVPB 100 mls/hr Q8H TANNA Administration Potassium Chloride/Dextrose/Sod Cl 1,000 mls @ 50 mls/hr 01/07/24 15:40 01/11/24 02:30 Kcl 20 Meq/D5/0.9% Sod Chl IV CONT 90 mls/hr .Q20H TANNA Infusion Metoprolol Tartrate 5 mg 01/06/24 13:45 01/11/24 05:09 Metoprolol Tartrate Inj 5 Mg/5 Ml Vial IV PUSH 5 mg Q8HR TANNA Administration Ondansetron HCl 4 mg 01/06/24 06:38 Ondansetron Inj 4 Mg/2 Ml Vial IV PUSH Q4H PRN Nausea Oxycodone/Acetaminophen 1 tablet 01/11/24 08:27 Oxycodone/Acetaminophen (*Crx) 5-325 Mg Tablet PO Q4H PRN Pain Rated 4-6 Oxycodone/Acetaminophen 1 tab 01/11/24 08:27 01/11/24 08:41 Oxycodone/Acetaminophen (*Crx) 10-325 Mg Tablet PO 1 tab Q6H PRN Administration Pain Rated 7-10 Pantoprazole Sodium 40 mg 01/10/24 09:00 01/11/24 09:06 Pantoprazole 40 Mg Tablet PO 40 mg QAM TANNA Administration Phenol 1 spray 01/07/24 14:43 01/07/24 15:45 Phenol/Sod Pheno [place] (*Bkc) MUCOUS MEM 1 spray PRN PRN Administration Sore Throat Radiology Results: ITS Impressions Abdomen/Pelvis CT 01/06/24 06:14 Impression: [id number]-bf-[id number] pneumoperitoneum is suspicious for bowel perforation in the absence of appropriate recent surgical/procedural history. Correlate clinically. Small bowel obstruction, transition point as detailed above. Extensive inflammatory changes involving distended small bowel loops, with inflammatory change the mesentery and areas of mild wall thickening. Infectious/inflammatory enteritis is a consideration, though of note, the terminal/distal ileum appear essentially unaffected. Small seroma versus abscess in the anterior subcutaneous soft tissues superior to the umbilicus. Case discussed with Dr. Germain at the time of this reading. Renal Ultrasound 01/09/24 19:24 IMPRESSION: Unremarkable renal sonogram findings. Labs Labs: Laboratory Tests 01/11/24 06:10 01/11/24 06:10 Calcium 7.8 L Phosphorus 2.9 Magnesium 1.3 L Total Bilirubin 0.4 AST 25 ALT 15 Alkaline Phosphatase 49 Total Protein 6.0 L Albumin 2.8 L
--- NOTE | 2024-01-11 12:50 | P.PNGS_ITS ---
Progress Note: A&P Assessment and Plan (1) Small bowel stricture: Code(s): K56.699 - Other intestinal obstruction unspecified as to partial versus complete obstruction Status: Acute Assessment and Plan: Postop day 5 after exploratory laparotomy and segmental distal small-bowel resection for small-bowel strictures. Still awaiting full return of bowel function. Dulcolax supp ordered. Will advane his diet later today or tomorrow if he continues to improve. Creatinine down to normal and he is tolerating oral intake well. Will stop IV fluids. Adding Ensure supplements. I adjusted his oxycodone dose, which has improved his pain control. Continue to increase activity and encourage incentive spirometry. Magnesium was replaced by Nephrology. WBC count is trending down to 10,000 today. Will switch to oral a ntibiotics. Repeat labs and exam tomorrow. (2) Acute kidney injury: Onset Date: ~01/09/24 Code(s): N17.9 - Acute kidney failure, unspecified Status: Acute Assessment and Plan: Nephrology following and managing. Plan I have discussed the patient's case and plan of care with Dr. Flores. Subjective Subjective Date/Time Seen: 01/11/24 12:50 Patient reports: tolerating liquids well and flatus Interval history: Chart reviewed since last seen. Patient is tolerating full liquids well. No nausea or vomiting. Passing lots of flatus, but no good bowel movement yet since surgery. He does report a few small amounts of brown stool passing with flatus. He feels like he could have a bowel movement. He is tolerating activity in ambulating in the halls multiple times daily. He felt his abdominal pain was not controlled with Percocet 5-325 earlier this morning. The nurse had called me saying it did not help with his pain. He has since tried the Percocet 10/325 and feels this has helped his pain significantly more. He reports having some abdominal pain along both sides of his abdomen away from his incisions. This pain has continued to improve slightly every day. He stopped taking the IV Dilaudid, which was discontinued yesterday. He wants to continue to try a getting his pain controlled with oral medication and avoid IV pain medication. No other complaints at this time. Exam Const: General: comfortable and no acute distress Orientation/consciousn ess: patient oriented x3 GI: Inspection: incision (dry and jim intact, no drainage or erythema) and other (red slightly raised rash on both sides of incision from lidocaine patches) GI Palp: Yes Soft to palpation, No Tenderness to palpation present (GI), No Guarding due to palpation present (GI), No Hernia present and No Rebound tenderness present Auscultation: normal bowel sounds Extrem: General: no calf tenderness and edema (mild bilateral trace edema of ankles) Psych: Mental Status: mental status grossly normal Objective Data Vital Signs Vital Signs: Vital Signs - 24 hr 01/10/24 14:06 01/10/24 14:13 01/10/24 14:00 Temperature 99.6 F Pulse Rate 68 66 68 Respiratory Rate 18 18 18 Blood Pressure 138/80 Pulse Oximetry 97 Oxygen Delivery Fraction of Inspired Oxygen 01/10/24 20:44 01/10/24 20:44 01/10/24 20:49 Temperature Pulse Rate 62 62 Respiratory Rate 18 Blood Pressure Pulse Oximetry 97 Oxygen Delivery Room Air Fraction of Inspired Oxygen 01/10/24 20:53 01/10/24 21:31 01/10/24 20:45 Temperature 99.4 F Pulse Rate 71 84 Respiratory Rate 18 22 H Blood Pressure 146/86 H Pulse Oximetry 98 Oxygen Delivery Room Air Fraction of Inspired Oxygen 01/11/24 03:11 01/11/24 03:18 01/11/24 05:09 Temperature Pulse Rate 100 94 98 Respiratory Rate 20 20 Blood Pressure Pulse Oximetry Oxygen Delivery Fraction of Inspired Oxygen 01/11/24 06:00 01/11/24 08:00 01/11/24 08:16 Temperature 97.4 F L Pulse Rate 66 Respiratory Rate 20 Blood Pressure 126/74 Pulse Oximetry 100 100 96 Oxygen Delivery Room Air Room Air Fraction of Inspired Oxygen 21 01/11/24 08:16 01/11/24 08:22 Temperature Pulse Rate 66 63 Respiratory Rate 20 20 Blood Pressure Pulse Oximetry Oxygen Delivery Fraction of Inspired Oxygen Intake/Output Intake/Output: Intake & Output 01/08/24 01/09/24 01/10/24 01/11/24 23:59 23:59 23:59 23:59 Intake Total 3630 6328.2 5097.5 2340 Output Total 600 Balance 3630 6328.2 4497.5 2340 Meds/Results Medications: Active Medications Generic Name Dose Route Start Last Admin Trade Name Freq PRN Reason Stop Dose Admin Acetaminophen 1,000 mg 10/02/24 14:56 Acetaminophen 500 Mg Tablet PO Q6H PRN Mild Pain (1-3) or Fever Albuterol/Ipratropium 3 ml 01/06/24 14:56 01/11/24 08:16 Ipratropium 0.5 Mg/Albuterol Sulfate 2.5 Mg Ampul.Neb 3 Ml INHALATION 3 ml Q6HRT TANNA Administration Diazepam 5 mg 01/09/24 17:00 01/11/24 09:06 Diazepam (*Crx) 5 Mg Tablet PO 5 mg BID TANNA Administration Enoxaparin Sodium 40 mg 01/07/24 09:00 01/11/24 09:09 Enoxaparin 40 Mg/0.4 Ml Syringe SUB-Q 40 mg DAILY TNANA Administration Piperacillin/Tazobactam/Dextrose 3.375 gm in 50 mls @ 100 mls/hr 01/06/24 12:00 01/11/24 11:35 Zosyn 3.375 Gm/Ns 50 Ml IVPB 100 mls/hr Q6H TANNA Administration Metronidazole 500 mg in 100 mls @ 100 mls/hr 01/06/24 09:00 01/11/24 09:56 Flagyl 500 Mg/Iso Soln 100 Ml IVPB 100 mls/hr Q8H TANNA Administration Potassium Chloride/Dextrose/Sod Cl 1,000 mls @ 50 mls/hr 01/07/24 15:40 01/11/24 02:30 Kcl 20 Meq/D5/0.9% Sod Chl IV CONT 90 mls/hr .Q20H TANNA Infusion Metoprolol Tartrate 5 mg 01/06/24 13:45 01/11/24 05:09 Metoprolol Tartrate Inj 5 Mg/5 Ml Vial IV PUSH 5 mg Q8HR TANNA Administration Ondansetron HCl 4 mg 01/06/24 06:38 Ondansetron Inj 4 Mg/2 Ml Vial IV PUSH Q4H PRN Nausea Oxycodone/Acetaminophen 1 tablet 01/11/24 08:27 Oxycodone/Acetaminophen (*Crx) 5-325 Mg Tablet PO Q4H PRN Pain Rated 4-6 Oxycodone/Acetaminophen 1 tab 01/11/24 08:27 01/11/24 08:41 Oxycodone/Acetaminophen (*Crx) 10-325 Mg Tablet PO 1 tab Q6H PRN Administration Pain Rated 7-10 Pantoprazole Sodium 40 mg 01/10/24 09:00 01/11/24 09:06 Pantoprazole 40 Mg Tablet PO 40 mg QAM TANNA Administration Phenol 1 spray 01/07/24 14:43 01/07/24 15:45 Phenol/Sod Pheno [place] Jordan (*Bkc) MUCOUS MEM 1 spray PRN PRN Administration Sore Throat Radiology Results: ITS Impressions Abdomen/Pelvis CT 01/06/24 06:14 Impression: Xoegp-th-[id number] pneumoperitoneum is suspicious for bowel perforation in the absence of appropriate recent surgical/procedural history. Correlate clinically. Small bowel obstruction, transition point as detailed above. Extensive inflammatory changes involving distended small bowel loops, with inflammatory change the mesentery and areas of mild wall thickening. Infectious/inflammatory enteritis is a consideration, though of note, the terminal/distal ileum appear essentially unaffected. Small seroma versus abscess in the anterior subcutaneous soft tissues superior to the umbilicus. Case discussed with Dr. Germain at the time of this reading. Renal Ultrasound 01/09/24 19:24 IMPRESSION: Unremarkable renal sonogram findings. Labs Labs: Laboratory Results - last 24 hr 01/10/24 01/10/24 01/11/24 13:43 13:43 06:10 WBC 10.7 H RBC 2.65 L Hgb 8.4 L Hct 26.5 L MCV 100.0 MCH 31.7 MCHC 31.7 L RDW 14.7 H Plt Count 237 MPV 8.9 Immature Gran % (Auto) 2.4 H Neut % (Auto) 72.6 Lymph % (Auto) 10.8 L [place] % (Auto) 10.6 H Eos % (Auto) 3.4 Baso % (Auto) 0.2 Lymph # (Auto) 1.16 [place] # (Auto) 1.1 H Eos # (Auto) 0.4 H Baso # (Auto) 0.0 Abs Immat Gran (auto) 0.26 H Absolute Neuts (auto) 7.8 H Absolute Nucleated RBC 0.000 Nucleated RBC % 0.0 Sodium 139 Potassium 3.7 Chloride 112 H Carbon Dioxide 22 Anion Gap 5 BUN 10 Creatinine 0.90 Estim Creat Clear Calc 91 Estimated GFR > 60 Glucose 119 H Calcium 7.8 L Phosphorus 2.9 Magnesium 1.3 L Total Bilirubin 0.4 AST 25 ALT 15 Alkaline Phosphatase 49 Total Protein 6.0 L Albumin 2.8 L Urine Color Dark yellow Urine Appearance Clear Urine pH 5.5 Ur Specific [place] 1.027 Urine Protein 1+ H Urine Glucose (UA) Trace H Urine Ketones Trace H Ur Blood (Man) Negative Urine Nitrate Negative Urine Bilirubin Negative Urine Urobilinogen 1.0 Add Ur Microanalysis Reviewed Leukocyte Esterase Rfl 1+ H Urine RBC 0-2 Urine WBC 0-5 Ur Squamous Epith Cells Moderate Urine Bacteria None seen Urine Casts 3-5 Urine Eosinophils None seen U Random Total Protein Cancelled 63 Ur Random Sodium 76 Ur Random Urea 666 Urine Total Volume Cancelled Urine Creatinine 208.5 Protein/Creat Ratio 2 0.30 H
[2024-01-11] MEDS: metroNIDAZOLE 500 MG TABLET PO ×2 (14:10→21:18)
[2024-01-11] MEDS: BISACODYL 10 MG SUPPOSITORY RECTAL (14:40)
[2024-01-11] MEDS: AMOXICILLIN/CLAVULANATE K 875-125 MG TAB 1 TABLET PO (20:36)
[2024-01-12] VITALS (10 sets, daily range): BP systolic 138–149; BP diastolic 83–87; PULSE 78–87; RESP 18–20; TEMP 36.4; O2SAT 97–98
[2024-01-12] MEDS: oxyCODONE/ACETAMINOPHEN (*CRX) 10-325 MG TABLET 1 TAB PO ×3 (02:17→14:11)
[2024-01-12] MEDS: IPRATROPIUM 0.5 MG/ALBUTEROL SULFATE 2.5 MG AMPUL.NEB 3 ML INHALATION ×3 (02:46→13:00)
[2024-01-12] MEDS: METOPROLOL TARTRATE INJ 5 MG/5 ML VIAL IV PUSH (05:20)
[2024-01-12] MEDS: metroNIDAZOLE 500 MG TABLET PO (05:20)
[2024-01-12] MEDS: diazePAM (*CRX) 5 MG TABLET PO (08:08)
[2024-01-12] MEDS: PANTOPRAZOLE 40 MG TABLET PO (08:08)
[2024-01-12] MEDS: AMOXICILLIN/CLAVULANATE K 875-125 MG TAB 1 TABLET PO (08:08)
[2024-01-12] MEDS: ENOXAPARIN 40 MG/0.4 ML SYRINGE SUB-Q (08:09)
[2024-01-12 08:14] LABS: Alanine Aminotransferase 13 U/L (6-50); Albumin Level 2.7 g/dL (3.5-5.1); Alkaline Phosphatase 79 U/L (38-126); Anion Gap 7 mmol/L (4-12); Aspartate Amino Transferase 20 U/L (17-59); Bilirubin,Total 0.3 mg/dL (0.2-1.3); Blood Urea Nitrogen 10 mg/dL (9-20); Carbon Dioxide 22 mmol/L (22-30); Chloride 107 mmol/L (98-107); Estimated CRCL calculation 102 ml/min; Estimated Glomerular Filt Rate > 60; Glucose 100 mg/dL (65-110); Magnesium 1.5 mg/dL (1.6-2.3); Potassium 3.5 mmol/L (3.4-5.0); Sodium 136 mmol/L (137-145)
[2024-01-12 08:31] LABS: Hematocrit 27.8 % (42.0-52.0); Hemoglobin 8.8 g/dL (14.0-18.0); Mean Corpuscular HGB Conc 31.7 g/dl (32-36); Mean Corpuscular Hemoglobin 31.1 pg (26-34); Mean Corpuscular Volume 98.2 fl (80-100); Mean Platelet Volume 9.4 fl (7.4-10.4); Platelet Count Result 294 k/mm3 (150-375); Red Blood Count 2.83 M/mm3 (4.6-6.20); Red Cell Distribution Width 14.6 % (11.5-14.5); White Blood Count 10.6 K/mm3 (4.5-10.0)
[2024-01-12] MEDS: MAGNESIUM OXIDE 400 MG TABLET PO (10:41)
--- NOTE | 2024-01-12 14:00 | PM.DS ---
DS: Admitting Diagnosis Discharge Date January 12, 2024 Admitting Diagnosis Small-bowel perforation secondary to small-bowel obstruction due to small-bowel stricture DS: Discharge Diagnosis Discharge Diagnosis (1) Small bowel stricture: Code(s): K56.699 - Other intestinal obstruction unspecified as to partial versus complete obstruction Status: Acute (2) Bowel perforation: Code(s): K63.1 - Perforation of intestine (nontraumatic) Status: Acute DS: Summary Hospital Course Reason for hospitalization: Small-bowel perforation secondary to small-bowel stricture and obstruction Hospital Course: Patient is a 58-year-old gentleman is well known to me from a incarcerated ventral hernia repair emergently about 2 months ago. At that time the incarcerated small bowel was ischemic but not frankly necrotic. The hernia was repaired primarily without any mesh. He eventually covered from that surgery but the small bowel that did not necrosis ended up getting small-bowel strictures from the ischemic event. The patient was having some mild obstructive type symptoms and a small bowel series was performed confirming the areas of small bowel stricture of distal small bowel. I discussed with him elective resection of the areas of stricture but he decided against having surgery at that time. He seemed to be doing okay until he came into the emergency room with severe lower abdominal pain. His workup in emergency room showed a leukocytosis and tachycardia and fever. He appeared to have sepsis. CT scan abdomen pelvis was performed showing free air in the abdomen and multiple loops of distal small bowel which appeared to be thickened and have stricturing. He was then taken emergently to the operating room after being hydrated IV fluids and given broad-spectrum IV antibiotics. Time of surgery he was noted to have multiple loops of distal small bowel which were thickened and had strictures causing partial small-bowel obstructions. No obvious area of perforation was seen. Approximately 2 to 3 ft of distal small bowel consisting of the distal jejunum and the majority of the terminal ileum was resected. A [id number] stapled small bowel anastomosis was performed. Postoperatively of course in the recovery unit was uneventful he was transferred to surgical for routine postoperative care. He remained on IV antibiotics has nasogastric tube in place for 48hours. He started passing flatus and nasogastric tube was removed. His and started on clear liquids. Over the course of the next 2 to 3 days he was advanced from clear liquids then to full liquids and then to regular soft diet. During that time he was able to get up and ambulate by himself although therapy was coming in to see him. He was doing well enough that he would not need home physical therapy or occupational therapy. He did develop a rash on his anterior abdominal wall were lidocaine patches were placed for postoperative pain. The patches were removed and the rashes were improving at the time of discharge. The midline incision was healing well without evidence of wound infection. Postop day 5 he was doing well enough to be discharged home in improved condition. He was ambulating independently and having bowel movements. Tolerating regular diet was afebrile and no tachycardia or hypotension. He is to resume all of his home medications. He was discharged with a prescription for some oxycodone for pain. He is to see me in my office in about 7 to 10 days. Instructed not do any heavy lifting more than 10 to 15 lb for next 6 to 8 weeks. No driving until seen back in the office. Status at Discharge Functional status at discharge: independent ambulation Time Spent with Patient Time attestation: Total time spent providing and/or coordinating discharge services: Time spent: Less than 30 minutes Exam GI: Other: Abdomen is soft obese. Nondistended. Midline incision is healing well with jim in place. No redness or drainage. Rash on the abdominal wall has pretty much resolved. DS: Data Data Completed and Pending Completed studies during hospitalization: Pending at discharge 01/06/24 11:56 Surgical [PTH] Routine Pending studies at discharge: Pending at discharge 01/06/24 12:03 Surgical [PTH] Routine Labs on day of discharge: Labs from last 24 hours 01/12/24 07:33 WBC 10.6 H RBC 2.83 L Hgb 8.8 L Hct 27.8 L MCV 98.2 MCH 31.1 MCHC 31.7 L RDW 14.6 H Plt Count 294 MPV 9.4 Sodium 136 L Potassium 3.5 Chloride 107 Carbon Dioxide 22 Anion Gap 7 BUN 10 Creatinine 0.80 Estim Creat Clear Calc 102 Estimated GFR > 60 Glucose 100 Calcium 8.0 L Magnesium 1.5 L Total Bilirubin 0.3 AST 20 ALT 13 Alkaline Phosphatase 79 Total Protein 6.0 L Albumin 2.7 L Discharge Plan Discharge Attending physician on discharge: Harsh Flores Consulting providers: Mireya Wells Discharging Clinician: Harsh Flores Anticipated Discharge Date/Time: 01/12/24 13:56 Patient Disposition: Home, Self-Care Activity: may shower Diet: regular Wound Care Instructions: other - see discharge instructions Discharge Instructions: Discharge patient home when stable. May remove dressing in 24 hr and then shower. No soaking incision under water x2 weeks. Protect surgical site from any trauma. Follow up in the office with Dr. Flores in 1 week. Call [phone] for an appointment. Resume home medications and any prescriptions for postoperative narcotic medication will be sent to the patient's pharmacy. If taking any blood thinners, okay to resume blood thinners in 24hours. No driving until after seen by Dr. Flores in the office. May use Tylenol and/or ibuprofen in addition to or in place of narcotic pain medications. Patient Instructions: Antibiotic Form, How to Stop Smoking (DC), Pain Management (DC), Bowel Obstruction (DC) Stand Alone Forms: General Discharge Information Follow-up/Referrals: Harsh Flores MD [Physician] - Discharge Medications: New oxycodone 5 mg tablet 5 mg PO Q6H PRN (Reason: pain) Qty: 20 0RF Continued Trelegy Ellipta 100-62.5-25 mcg blister with device 1 inh INHALATION HS pravastatin 10 mg tablet 10 mg PO QHS Qty: 90 3RF clotrimazole-betamethasone 1-0.05 % cream 1 applic TOPICAL BID 28 Days Qty: 45 2RF Rx Instructions: feet lisinopril-hydrochlorothiazide 20-12.5 mg tablet 2 tablet PO DAILY Qty: 180 1RF albuterol sulfate [Ventolin HFA] 90 mcg/actuation HFA aerosol inhaler 2 inh INHALATION Q4H PRN (Reason: shortness of breath or wheezing) Qty: 8.5 5RF levothyroxine 100 mcg tablet 100 mcg PO DAILY Qty: 90 1RF Date of admission: 01/06/24 09:43 Primary Care Provider: Renuka Kurtz Admitting Provider: Jailene Galindo Attending physician on admission: Jailene Galindo Condition: Stable
== END 2024-01-12 15:31 | disposition home or self-care (01) | DRG 853 ==
LOC: ANHED 06:41 → ANH3MEDSUR 07:11
PROVIDERS: Internal Medicine Nephrology; Nurse Practitioner Family; Admitting Provider Surgery; Emergency Provider Emergency Medicine; PCP Family Medicine; Visit Provider Surgery
PROC: 0DTA0ZZ Resection of Jejunum, Open Approach (ICD-10-PCS; CPT 49000; principal; 2024-01-06 10:45)
DX: A41.9 Sepsis, unspecified organism (principal); K63.1 Perforation of intestine (nontraumatic); K65.9 Peritonitis, unspecified; E44.0 Moderate protein-calorie malnutrition; K56.699 Other intestinal obstruction unspecified as to partial versus complete obstruction; N17.9 Acute kidney failure, unspecified; E03.9 Hypothyroidism, unspecified; E87.6 Hypokalemia; E78.5 Hyperlipidemia, unspecified; E55.9 Vitamin D deficiency, unspecified; F17.210 Nicotine dependence, cigarettes, uncomplicated; I10 Essential (primary) hypertension; J44.9 Chronic obstructive pulmonary disease, unspecified; K66.8 Other specified disorders of peritoneum; R21 Rash and other nonspecific skin eruption; Z28.21 Immunization not carried out because of patient refusal
CPT/HCPCS: 36415; 74177; 76775; 80048; 80053; 81001; 82550; 82570; 83605; 83690; 83735; 84100; 84156; 84300; 84540; 85025; 85027; 85610; 85730; 85999; 86850; 86900; 86901; 87040; 87086; 88307; 93005; 94640; 96361; 96365; 96375; 96376; 97162; 97165; 97530; 97535; 99285; A9270; G0378; J0330; J1100; J1171; J1200; J1650; J1741; J1836; J1885; J2003; J2004; J2250; J2405; J2470; J2543; J2704; J3010; J3360; J3475; J3480; J7030; J7040; J7042; J7120; Q9967

== ENCOUNTER 2024-01-25 10:07 | Emergency (ER) | payer OTHER, SELFPAY ==
[2024-01-25 10:20] VITALS: BP 120/94; PULSE 87; RESP 16; TEMP 36.3; O2SAT 98
--- NOTE | 2024-01-25 11:03 | ED.DENTAL ---
HPI - Dental/Oral General Chief complaint: Dental/Oral Stated complaint: Toothache Time Seen by Provider: 01/25/24 11:03 Source: patient Mode of arrival: ambulatory Limitations: no limitations History of Present Illness HPI Narrative: 58-year-old male presents with complaint of right lower dental pain for 2 days. Afebrile. No significant facial swelling noted. Patient currently does not a dentist. All systems reviewed and negative except as noted above. Related Data Home Medications Medication Instructions Recorded Confirmed fluticasone fur. 100 mcg-umeclid 1 inh inhalation HS 10/29/23 01/25/24 62.5 mcg-vilant 25 mcg inhalat.powder (Trelegy Ellipta) Allergies Allergy/AdvReac Type Severity Reaction Status Date / Time terbinafine Allergy Mild Hives Verified 01/25/24 10:25 Review of Systems Review of Systems: CONSTITUTIONAL: Denies fever, chills, or sweats. EYES: Denies visual changes, redness, or discharge. ENT: Denies rhinorrhea, congestion, sore throat, or otalgia. Reports right lower dental pain. CARDIOVASCULAR: Denies chest pain, palpitations, or edema. RESPIRATORY: Denies cough or dyspnea. GASTROINTESTINAL: Denies abdominal pain, nausea, vomiting, or diarrhea. GENITOURINARY: Denies dysuria or hematuria. SKIN: Denies rash or itching. MUSCULOSKELETAL: Denies back pain, joint pain, or myalgia. NEUROLOGIC: Denies headache, numbness, or weakness. PSYCHIATRIC: Denies anxiety or depression. All other systems reviewed are negative, except as documented in HPI. [facility] Past Medical History Medical History Abnormal EKG Acute kidney injury (~01/09/24) Chronic obstructive pulmonary disease Chronic shortness of breath Essential (primary) hypertension Hypothyroid Incarcerated ventral hernia (~10/2023) Small bowel strangulation (~10/2023) Syncopal episodes Tinea pedis Vitamin D deficiency Surgical History Surgical History H/O exploratory laparotomy 01/07/24 Exploratory laparotomy with segmental small bowel resection and [id number] stapled small bowel anastomosis. Open appendectomy. Dr. Flores History of ventral hernia repair 10/28/2023 - Open incarcerated ventral hernia repair without mesh. (defect = 7 cm) by Dr. Harsh Flores Family History Family History Father Heart disease Mother Thyroid disease Mother Family history of thyroid disease Father Family history of coronary artery disease Hypertension Social History Social History Social History: Patient is . Lives with his in [place]. Patient works for [employer]. Smoking packs per day: 1 Smoking cigarettes per day: 20.0 Years smoked: 40 Smoking pack-years: 40.00 Smoking status: Current every day smoker Second hand tobacco smoke exposure: No Alcohol intake: current Drinks per week: 4 Alcohol use details: social drinker Substance use: never Substance use type: does not use Do You Feel Safe in your Home?: Yes Lack of Transportation: No Lack of Food: Never True Current Housing: I Have Housing Concerned About Future Housing: No Difficulty Paying Gas/Electric Bills: No Difficulty Paying for Meds: YES Currently Unemployed: No Education: High School Diploma/GED Difficulty w/ Childcare or Family Care: No Living arrangements: with family Occupation/Education: occupation Gender identity (if verbalized by the patient): Male Sexual Orientation (if Verbalized by the Patient): Straight or Heterosexual Spiritual care concerns: No Agree to blood products: Yes Comments At time of signature, agree with nursing past medical, surgical, social and family history. There is no relevant family history pertinent to the presenting complaint. Exam Narrative: GEN
== END 2024-01-25 11:09 | disposition home or self-care (01) ==
PROVIDERS: Emergency Provider Nurse Practitioner Family; PCP Family Medicine
DX: K04.7 Periapical abscess without sinus (principal); Z87.891 Personal history of nicotine dependence; J44.9 Chronic obstructive pulmonary disease, unspecified; I10 Essential (primary) hypertension; E03.9 Hypothyroidism, unspecified; E55.9 Vitamin D deficiency, unspecified
CPT/HCPCS: 99213; G0463

== ENCOUNTER 2024-04-07 07:29 | Outpatient (RCR) | payer OTHER, SELFPAY ==
[2024-01-25 10:06] VITALS: BMI 31.6
--- NOTE | 2024-02-05 10:48 | P.PN_ITS ---
Progress Note: A&P Assessment and Plan (1) Open abdominal wall wound: Code(s): S31.109A - Unspecified open wound of abdominal wall, unspecified quadrant without penetration into peritoneal cavity, initial encounter Status: Acute Assessment and Plan: Patient continues do well the wound VAC. Small amount of nonviable tissue was removed at the bedside in the Wound Care Clinic. Patient tolerated that very w ell. The wound VAC was replaced by the wound care nurses. I expect use wound VAC for another 4 to 6 weeks. Patient can be seen in the Wound Care Clinic by me 2 weeks. he is to continue his 2 to 3 times per week wound VAC changes by the wound care nurses in the Wound Care Clinic. Subjective Date/time seen: 02/04/24 Interval history: Patient is seen in the [facility] today. He is seen in the Wound Care Clinic by the nurse 3 times a week for wound VAC change. After exploratory laparotomy and small-bowel resection he developed a wound infection and had the midline incision completely opened. The defect is large enough to place wound VAC. He is pretty pretty well. Has no significant complaints. Wound VAC is working well. Exam GI: Other: Abdomen is soft and nondistended. The midline wound is now measuring 10.2x4x6.3cm. At the base the wound there is some necrotic fibrinous tissue which was debrided in the Wound Care Clinic sharply. The fascia is intact and there is no evidence of evisceration or incisional hernia at this time. There is approximately 40 to 50% granulation of the wound base.
--- NOTE | 2024-02-23 09:14 | WPDPN ---
Progress Note: A&P Assessment and Plan (1) Open abdominal wall wound: Code(s): S31.109A - Unspecified open wound of abdominal wall, unspecified quadrant without penetration into peritoneal cavity, initial encounter Status: Acute Assessment and Plan: Patient continues to benefit from the wound VAC. Continue changing twice a week. It continues to come tract developed more granulation tissue around the sides and the base. He was encouraged to quit smoking has a continues to impact his wound healing. I will see him back in the wound clinic in about 2 weeks. He continues to be seen by the wound care nurses twice a week. Subjective Date/time seen: 02/18/24 Interval history: Patient was seen back in the [facility] on February 18, 2024. He has had a wound VAC on his midline incision for several weeks due to a midline wound infection after his laparotomy small-bowel resection. He is a diabetic. He also continues to smoke. He has no specific complaints about his wound VAC. He is seen twice a week for wound VAC changes in the Wound Care Clinic by the wound nurses. Exam GI: Other: The abdomen is soft and nondistended. The midline incision is closing by secondary intention. The wound now measures A 8.5cm in length by 2.6cm in width by 5cm in depth. That is a significant decrease in size since my last visit with him. There is about 60% granulation tissue around the edges and the base with about 40% yellow slough at the base. There is no evisceration and no incisional hernia at this time. Objective Data Meds/Results Medications: Active Medications Generic Name Dose Route Start Last Admin Trade Name Freq PRN Reason Stop Dose Admin Gentamicin Sulfate 1 applic 02/22/24 10:22 Gentamicin Sulfate 0.1% Oint 15 Gm Tube TOPICAL 05/24/24 23:59 PRN PRN Wound Care
--- NOTE | 2024-03-10 19:01 | WPDPN ---
Progress Note: A&P Assessment and Plan (1) Open abdominal wall wound: Code(s): S31.109A - Unspecified open wound of abdominal wall, unspecified quadrant without penetration into peritoneal cavity, initial encounter Status: Acute Assessment and Plan: The open abdominal wound continues to slowly heal. He is getting good response from the wound VAC. base of the wound is now cleaning up nicely and granulation tissue was chan the wound well. I did remove the suture knot from the fascial suture today in the clinic. He has healed to the point that did not is not needed. Continue use of the wound VAC with changes as he has been doing. I will see him back in Wound Care Clinic in 2 weeks. Subjective Date/time seen: 03/10/24 19:01 Interval history: I saw the patient Wound Care Clinic today for 2 weeks interval follow-up with me. He is doing very well. Continues to use the wound VAC which was approved again insurance company. The wound continues to contract and get smaller. The base of the wound is starting get some granulation tissue and there is no recurrent hernia. Exam GI: Other: The wound now measures 5.5x1.3x4.2cm. The midline fascia is intact. The base of the wound as viable adipose tissue and granulation tissue starting to creep in from the edges. The edges of the wound are completely granulated and healing. There is no redness. Minimal serous drainage. There is a large suture knot at the base of the wound from the fascial suture. Objective Data Meds/Results Medications: Active Medications Generic Name Dose Route Start Last Admin Trade Name Freq PRN Reason Stop Dose Admin Gentamicin Sulfate 1 applic 02/22/24 10:22 Gentamicin Sulfate 0.1% Oint 15 Gm Tube TOPICAL 05/24/24 23:59 PRN PRN Wound Care
--- NOTE | 2024-03-24 14:40 | P.PN_ITS ---
Progress Note: A&P Assessment and Plan (1) Postoperative wound infection: Code(s): T81.49XA - Infection following a procedure, other surgical site, initial encounter Status: Acute Assessment and Plan: The postoperative wound infection has resolved. The wound continues to heal and close quickly. There has been another 50% reduction in the size of since I saw him 2 weeks ago. There is no need for continuation of the wound VAC. That can be return to the company. Continue packing the wound daily with silver rope and covered with dry gauze. Remaining this all bowel suture the base of the wound was removed in the clinic today To make sure there is no other foreign bodies in the wound to keep it from closing. Continue packing with silver rope daily. He does not need to come back to the wound care clinic to be seen for 3 weeks as long as he is doing well at home. He was again counseled to quit smoking. Subjective Date/time seen: 03/24/24 14:40 Interval history: Patient comes to the [facility] today for me to see him in follow-up of his open abdominal wound which is been packed with silver rope and slowly granulating. He is still smoking is a diabetic. He has been on a hold for his wound VAC the past 2 weeks. The wound continues to slowly granulate and contract. He is doing well without complaints. Exam GI: Other: Abdomen is soft and nondistended. There is no evidence of fascial dehiscence or recurrent incisional hernia. The wound now measures 2.5cm in length by 1cm in width by 3cm in depth. The fascia underneath is completely intact. Small amount of absorbable fascial suture is noted the base of the wound. Objective Data Meds/Results Medications: Active Medications Generic Name Dose Route Start Last Admin Trade Name Freq PRN Reason Stop Dose Admin Gentamicin Sulfate 1 applic 02/22/24 10:22 Gentamicin Sulfate 0.1% Oint 15 Gm Tube TOPICAL 05/24/24 23:59 PRN PRN Wound Care
--- NOTE | 2024-04-07 14:08 | P.PN_ITS ---
Progress Note: A&P Assessment and Plan (1) Open abdominal wall wound: Code(s): S31.109A - Unspecified open wound of abdominal wall, unspecified quadrant without penetration into peritoneal cavity, initial encounter Status: Acute Assessment and Plan: Continue per present packing of the open abdominal wound with silver rope. We will allow to continue to close with secondary intention. He has evidence of r ecurrent hernia at this point. We will see him back in Wound Care Clinic in 4 weeks. Subjective Date/time seen: 04/07/24 14:08 Interval history: Patient is seen today for interval to week follow-up in the Wound Care Clinic. His slowly closing abdominal wound seems to be continuing to closed slowly. He has no complaints. He continues to pack it with silver rope and a dry dressing. Exam GI: Other: The midline abdominal continues to close. There is no suture material at the base. The wound now measures 1.4x0.9x2.7cm. There is excellent granulation tissue throughout the whole base and sides of the wound. No evidence of fascial dehiscence or incisional hernia is noted. Objective Data Meds/Results Medications: Active Medications Generic Name Dose Route Start Last Admin Trade Name Freq PRN Reason Stop Dose Admin Gentamicin Sulfate 1 applic 02/22/24 10:22 Gentamicin Sulfate 0.1% Oint 15 Gm Tube TOPICAL 05/24/24 23:59 PRN PRN Wound Care
== END 2024-04-24 23:59 | disposition home or self-care (01) ==
LOC: ANHWOC 07:29
PROVIDERS: PCP Family Medicine; Visit Provider Nurse Practitioner Family
DX: S31.109A Unspecified open wound of abdominal wall, unspecified quadrant without penetration into peritoneal cavity, initial encounter (principal); T81.49XA Infection following a procedure, other surgical site, initial encounter
CPT/HCPCS: 97605; 97606; 99213; 99214; A9270; G0463

== ENCOUNTER 2024-06-28 10:10 | Outpatient (CLI) | payer OTHER, SELFPAY ==
--- NOTE | ~2024-06-28 | CT_ITS ---
EXAMINATION: CT lung screening DATE: 06/28/2024 10:34 INDICATION: Z87.891 - Personal history of nicotine dependence TECHNIQUE: Computed tomography (CT) of the chest was performed without intravenous contrast. Addition al 3D reconstructions utilizing coronal maximum intensity projection (MIP) were performed. Automated exposure control and iterative reconstruction technique were employed. The dose-length product was 24 3.06 mGy-cm. COMPARISON: 11/18/2023 FINDINGS: Unchanged 6 mm triangular alyssa fissural nodule along the right major fissure. No other suspicious pul monary nodules, pneumonia, pulmonary edema or pleural effusion. Heart size is normal. Aortic valve ca lcific lesion. No pericardial effusion. Thoracic aorta is normal in caliber. No pathologically enlarg ed thoracic lymphadenopathy. Mild upper thoracic levoscoliosis with mild spondylosis. IMPRESSION: 1. . Lung-RADS category 2: Benign appearance or behavior. Continue annual screening with noncontrast low-dose chest CT in 12 months. Reviewed, dictated and finalized at location B. IMPRESSION: 1. . Lung-RADS category 2: Benign appearance or behavior. Continue annual scree jayden with noncontrast low-dose chest CT in 12 months.
== END 2024-06-28 10:11 | disposition home or self-care (01) ==
PROVIDERS: PCP Family Medicine; Visit Provider Nurse Practitioner Family
DX: Z12.2 Encounter for screening for malignant neoplasm of respiratory organs (principal); Z87.891 Personal history of nicotine dependence
CPT/HCPCS: 71271

== ENCOUNTER 2024-07-07 07:07 | Outpatient (RCR) | payer OTHER, SELFPAY ==
[2024-04-25 00:04] VITALS: BMI 31.6
--- NOTE | 2024-05-12 18:08 | WPDPN ---
Progress Note: A&P Assessment and Plan (1) Open abdominal wall wound: Qualifiers: Encounter type: sequela Qualified Code(s): S31.109S - Unspecified open wound of abdominal wall, unspecified quadrant without penetration into peritoneal cavity, sequela Code(s): S31.109A - Unspecified open wound of abdominal wall, unspecified quadrant without penetration into peritoneal cavity, initial encounter Status: Acute Assessment and Plan: The abdominal wound continues to close without evidence of cellulitis or problems. The wound is now so small that I think we can stop packing and allowed to completely close up. Patient was instructed to contact us if he has any problems and follow up in Wound Care Clinic for hopefully one last visit in about 4 weeks. Subjective Date/time seen: 05/12/24 18:08 Interval history: Patient comes to be evaluated in the [facility] today. He continues do very well. Was last seen about 1 month ago. The midline wound continues to close slowly. It is much smaller she now today. Minimal serous drainage and he is packing it open with small amount of silver rope. Exam GI: Other: Abdomen is soft nondistended. The remaining open portion the midline wound is now only 0.8x0.5x1.6 cm. Excellent granulation tissue throughout the whole wound base and sides. No cellulitis or drainage.
--- NOTE | 2024-07-10 09:30 | WPDPN ---
Progress Note: A&P Assessment and Plan (1) Open abdominal wall wound: Qualifiers: Encounter type: sequela Qualified Code(s): S31.109S - Unspecified open wound of abdominal wall, unspecified quadrant without penetration into peritoneal cavity, sequela Code(s): S31.109A - Unspecified open wound of abdominal wall, unspecified quadrant without penetration into peritoneal cavity, initial encounter Status: Acute Assessment and Plan: The abdominal wall wound is now centrally closed. The remaining ports the will close up over the next couple of weeks. He only needs to place a Band-Aid over the wound. No packing of the wound or application of antibiotic ointment as needed. He does not have a recurrent incisional hernia at this time. He was directed to come back to see me in the office or in the Wound Care Clinic if he needs to because the wound is enlarging or causing any problems. Otherwise he is released to all activity without restrictions and follows up with me on a p.r.n. basis. Subjective Date/time seen: 07/07/24 Interval history: Patient returns for was going to be his last visit to the Wound Care Clinic. He has no complaints. He is trying to quit smoking. His diabetes is under better control. The abdominal wall wound is nearly closed. He has no complaints. There has been no drainage. He is no longer packing the wound. Exam GI: Other: Midline abdominal wall wound now measures 0.3x0.3x0.5cm. Is completely granulated and chan well. There is no drainage from the wound. There is no redness. No evidence of recurrent incisional hernia on exam.
== END 2024-08-10 23:59 | disposition home or self-care (01) ==
LOC: ANHWOC 07:07
PROVIDERS: PCP Family Medicine; Visit Provider Nurse Practitioner Family
DX: Z48.01 Encounter for change or removal of surgical wound dressing (principal); S31.109A Unspecified open wound of abdominal wall, unspecified quadrant without penetration into peritoneal cavity, initial encounter; T81.49XA Infection following a procedure, other surgical site, initial encounter
CPT/HCPCS: 99213; G0463